=== PATIENT | male | born 1945 | race Caucasian/White ===

== ENCOUNTER 2018-03-13 12:42 | Outpatient (CLI) | payer MEDICARE | END 2018-03-13 12:43 | disposition home or self-care (01) | LOC: BICULT 12:42 | PROVIDERS: ATTEND Internal Medicine Nephrology | DX: Z01.818 Encounter for other preprocedural examination (principal); N18.5 Chronic kidney disease, stage 5 | CPT/HCPCS: 93970; G0365 ==

== ENCOUNTER 2018-05-02 11:41 | Outpatient (CLI) | payer MEDICARE | END 2018-05-02 11:42 | disposition home or self-care (01) | LOC: LABBT 11:41 | PROVIDERS: ATTEND Specialist | DX: Z01.810 Encounter for preprocedural cardiovascular examination (principal); N18.9 Chronic kidney disease, unspecified | CPT/HCPCS: 93005; 93010 ==

== ENCOUNTER 2018-05-08 05:46 | Day surgery (SDC) | payer MEDICARE ==
[2018-05-02 12:06] VITALS: BMI 37.2
--- NOTE | 2018-05-02 13:43 | HP ---
HISTORY OF PRESENT ILLNESS: Nahun Case is a 72-year-old male patient followed by Dr. Bird for chr onic kidney disease. He has progressive renal failure. Ultrasound vein mapping at [facility] eve[facility] the right cephalic vein is superior than left. Left seemed to taper his antecubital fossa. H e is right handed, more so than left, although uses both hands. He is retired from [employer]. He has a history of hypertension, but not diabetes. He believes lead poisoning has something to do with his kidney failure. Plan is for a right arm fistula under general anesthesia or regional per patient anesthesia choice. The patient did have a cardiac stress test 5 years ago, prior to a prostatectomy. He does not have a ny cardiac symptomatology. The patient is followed by Dr. Astorga in [place] and followed by Dr. Bird, Nephrology. ALLERGIES: None. TOBACCO: None. ALCOHOL: None. SOCIAL HISTORY: He is right handed, primarily is retired. [employer]. He lives in [place] outside [facility]. PAST SURGICAL HISTORY: Umbilical hernia repair 5 years ago with mesh. Vasectomy, eye surgery, traum atic prostatectomy for cancer, lumbar surgery for traumatic event. PAST MEDICAL HISTORY: Hypertension, gout, history of lead poisoning 12/1992 working at [employer]. REVIEW OF SYSTEMS: Noncontributory. PHYSICAL EXAMINATION: VITAL SIGNS: Weight 245 pounds, 5 foot 8 inches, 37 BMI, 146/60, 39, 97.9 degrees. HEENT: Unremarkable. LUNGS: Clear to auscultation. CARDIAC: Regular rate and rhythm without murmur or gallop. ABDOMEN: Soft, obese, nontender. Umbilical hernia repair intact. EXTREMITIES: Unremarkable. Palpable radial pulses bilaterally. He is obese. 04/01/2018: Sodium 139, potassium 5.6, creatinine 6, GFR 9. ASSESSMENT AND PLAN: 1. End-stage renal disease. We will plan placement of right arm fistula. Risk of infection, bleedi ng, reoperation, revision explained. 2. Hypertension. 3. Obesity. 4. History of lead poisoning. 5. History of lumbar surgery.
[2018-05-08] MEDS ORDERED: CEFAZOLIN 2 GM/50 ML BAG ONE (06:14)
[2018-05-08] MEDS ORDERED: Midazolam HCl 2 mg/2 ml Vial ONE (07:10)
[2018-05-08] MEDS ORDERED: Fentanyl 100 MCG/2 ML VIAL ONE (07:10)
[2018-05-08] MEDS ORDERED: Protamine Sulfate 50 MG/5 ML VIAL ONE (07:19)
[2018-05-08] MEDS ORDERED: Ioversol 68 % 50 ML VIAL ONE (07:19)
[2018-05-08] MEDS ORDERED: Lidocaine 2% PF 5 ML VIAL ONE (07:19)
[2018-05-08] MEDS ORDERED: Bupivacaine HCl 0.5%/Epinephrine 1:200,000/PF 30 ml Vial ONE ×2 (07:19→17:17)
[2018-05-08] MEDS ORDERED: Heparin 5,000 UNITS/ML VIAL ONE (07:19)
[2018-05-08] MEDS ORDERED: Atropine Sulfate 1 mg/1 ml Vial ONE (07:33)
[2018-05-08] MEDS ORDERED: Ondansetron PF 4 MG/2 ML Vial ONE ×2 (07:33→17:29)
[2018-05-08] MEDS ORDERED: Propofol 500 MG/50 ML VIAL ONE ×2 (07:56→08:57)
[2018-05-08 08:29] LABS: Albumin 3.4 g/dL (3.4-4.8)
[2018-05-08 08:31] LABS: Calcium 10.5 mg/dL (7.8-10.44); Chloride 109 mmol/L (98-107); Potassium 5.4 mmol/L (3.5-5.1); Sodium 136 mmol/L (136-145)
[2018-05-08 08:32] LABS: Globulin 3.4 g/dL (2.4-3.5); Glucose 131 mg/dL (83-110); Protein, Total 6.8 g/dL (5.8-8.1)
[2018-05-08 08:33] LABS: Anion Gap 11 mmol/L (10-20); Carbon Dioxide 21 mmol/L (23-31)
[2018-05-08 08:34] LABS: Bilirubin, Total 0.2 mg/dL (0.2-1.2)
[2018-05-08 08:35] LABS: Alkaline Phosphatase 68 U/L (40-150); Calc. Creatinine Clearance 17 mL/min (70-130); Estimated GFR-MDRD 9
[2018-05-08 08:36] LABS: BUN (Urea Nitrogen) 60 mg/dL (8.4-25.7)
[2018-05-08 08:37] LABS: AST (SGOT) 18 U/L (5-34)
[2018-05-08 08:38] LABS: ALT (SGPT) 15 U/L (8-55)
--- NOTE | 2018-05-08 11:07 | OP ---
DATE OF PROCEDURE: 05/08/2018 PREOPERATIVE DIAGNOSIS: Chronic kidney disease, not yet started dialysis. POSTOPERATIVE DIAGNOSIS: Chronic kidney disease, not yet started dialysis. PROCEDURE: Right arm primary AV fistula, inflow proximal radial artery, outflow antecubital vein to cephalic vein, primary outflow with some communication to basilic vein is smaller caliber anatomicall y preferentially outflow cephalic vein calibrated to a 4 mm coronary dilator. SURGEON: Cristiano Fuchs M.D. ANESTHESIA: Regional TIVA. DESCRIPTION OF PROCEDURE: The patient taken to the operating room where under regional anesthesia an d intravenous sedation, right upper extremity was prepped with ChloraPrep, draped in routine fashion. Small incision was made at the wrist and the cephalic vein at the wrist was too small and this inci juliann closed by approximately subcutaneous tissues using 3-0 Monocryl, skin with subdermal 4-0 Monocry l and DermaGlue applied. Incision made in the proximal volar forearm longitudinally below the antecubital fossa, carried don t o skin and subcutaneous tissue. Antecubital vein dissected free, was of good caliber, outflow cephal ic vein primarily, cephalic veins appear to be of excellent caliber. The antecubital vein seemed to consist of two veins. There was a small communicating branch to a larger basilic vein. Perforating branch antecubital vein dissected free and branches divided between clips and 4-0 silk ties and it wa s spatulated but anatomically the antecubital vein of larger caliber more laterally seemed to be of b selene suited. Stump was doubly clipped, divided. Vein divided and spatulated and interrogated with coronary dilators, passing coronary dilators from a 2 mm to a 4 mm coronary dilator out the cephalic vein outflow without obstruction. The perforating branch was ligated with 4-0 silk tie. The patient was given 6000 units of heparin intravenously. After adequate circulation time, the proximal radial artery was clamped proximally and distally and longitudinal arteriotomy made sharply and elongated w christa Arita scissors and end vein to side proximal radial anastomosis created with continuous suture of 6-0 Prolene. Once this was completed, vascular control was released and there was excellent outflow interrogated by Doppler with good signal. The patient given 25 mg of protamine intravenously by Caitlyn arora. Good hemostasis noted. Subcutaneous tissues approximated with 3-0 Monocryl, skin with subd ermal 4-0 Monocryl and DermaGlue applied. The patient tolerated the procedure well.
[2018-05-08] MEDS ORDERED: Heparin 10,000 UNITS/ 10 ML VIAL ONE (17:29)
[2018-05-08] MEDS ORDERED: PHENYLEPHRINE-NS 100 MCG/ML 10 ML SYRINGE ONE (17:29)
[2018-05-08] MEDS ORDERED: ePHEDrine/0.9% NaCl/PF SYRINGE 50 mg/10 ml ONE (17:29)
[2018-05-08] MEDS ORDERED: PROPOFOL 200 MG/20 ML VIAL ONE (17:29)
== END 2018-05-08 10:45 | disposition home or self-care (01) ==
LOC: SDC 05:46
PROVIDERS: ATTEND Specialist
PROC: 031B0ZF Bypass Right Radial Artery to Lower Arm Vein, Open Approach (ICD-10-PCS; principal; 2018-05-08)
DX: I12.0 Hypertensive chronic kidney disease with stage 5 chronic kidney disease or end stage renal disease (principal); N18.6 End stage renal disease; M31.31 Wegener's granulomatosis with renal involvement; M10.9 Gout, unspecified; E78.5 Hyperlipidemia, unspecified; E66.9 Obesity, unspecified; Z68.37 Body mass index [BMI] 37.0-37.9, adult; Z79.899 Other long term (current) drug therapy; Z99.2 Dependence on renal dialysis
CPT/HCPCS: 36415; 80053; J0131; J0461; J0670; J1644; J2001; J2250; J2405; J2704; J2720; J3010; Q9967

== ENCOUNTER 2019-08-11 12:54 | Inpatient (IN) | payer MEDICARE ==
--- NOTE | 2019-08-11 13:28 | RAD ---
CHEST 1 VIEW: Date: 08/11/2019 INDICATION: History of increasing dyspnea and myalgias. COMPARISON: None. FINDINGS: There is mild cardiomegaly. There is subsegmental volume loss involving the right mid lung. No consol idation, pleural effusion, or pneumothorax is evident. No acute osseous abnormality is evident. IMPRESSION: Mild cardiomegaly without evidence of cardiac decompensation. POS: CET
[2019-08-11 13:35] LABS: #Eosinphils 0.1 thou/uL (0.0-0.7); #Lymphocytes 1.3 thou/uL (1.20-3.40); #Monocytes 0.6 thou/uL (0.11-0.59); #Neutrophils 4.6 thou/uL (1.40-6.50); %Basophils 0.3 % (0.0-1.0); %Eosinophils 1.5 % (0.0-10.0); %Lymphocytes 19.6 % (21.0-51.0); %Monocytes 8.5 % (0.0-10.0); %Neutrophils 70.2 % (42.0-75.0); Hemoglobin 9.2 g/dL (14.0-18.0); Mean Corpuscular HGB CONC 32.2 g/dL (32.0-36.0); Mean Corpuscular Hemoglobin 30.5 pg (27.0-31.0); Mean Corpuscular Volume 94.7 fL (78.0-98.0); Mean Platelet Volume 9.7 fL (7.4-10.4); Platelet Count 102 thou/uL (130-400); RBC Distribution Width 13.6 % (11.5-14.5); Red Blood Cell (RBC) Count 3.01 mill/uL (4.70-6.10); White Blood Cell (WBC) Count 6.5 thou/uL (4.8-10.8)
[2019-08-11 14:03] LABS: ALT (SGPT) 24 U/L (8-55); AST (SGOT) 65 U/L (5-34); Albumin 3.5 g/dL (3.4-4.8); Alkaline Phosphatase 82 U/L (40-110); Anion Gap 13 mmol/L (10-20); BUN (Urea Nitrogen) 66 mg/dL (8.4-25.7); Bilirubin, Total 0.6 mg/dL (0.2-1.2); Calc. Creatinine Clearance 0 mL/min (70-130); Calcium 10.5 mg/dL (7.8-10.44); Carbon Dioxide 19 mmol/L (23-31); Chloride 111 mmol/L (98-107); Estimated GFR-MDRD 8; Globulin 2.7 g/dL (2.4-3.5); Glucose 91 mg/dL (83-110); Potassium 5.4 mmol/L (3.5-5.1); Protein, Total 6.2 g/dL (5.8-8.1); Sodium 138 mmol/L (136-145)
[2019-08-11] MEDS ORDERED: Aspirin Chewable 81 MG TAB ONE (14:12)
[2019-08-11] MEDS ORDERED: Ondansetron PF 4 MG/2 ML Vial ONE (14:12)
[2019-08-11 14:25] LABS: CKMB 88.9 ng/mL (0-6.6)
[2019-08-11] MEDS ORDERED: Enoxaparin Sodium 30 MG/0.3 ML SYRINGE ONE (15:12)
[2019-08-11] MEDS ORDERED: Enoxaparin Sodium 80 MG/0.8 ML SYRINGE ONE (15:12)
[2019-08-11] MEDS ORDERED: Acetaminophen 325 MG TAB PO PRN (15:59)
[2019-08-11] MEDS ORDERED: Bisacodyl 5 MG TAB PO PRN (15:59)
[2019-08-11] MEDS ORDERED: Loperamide HCl 2 MG CAP PO PRN (15:59)
[2019-08-11] MEDS ORDERED: HYDROcodone/Acetaminophen 5/325 mg Tablet PO PRN (15:59)
[2019-08-11] MEDS ORDERED: Calcium Carbonate 500 MG ChewTAB PO PRN (15:59)
[2019-08-11] MEDS ORDERED: Ondansetron ODT 4 MG TAB PO PRN (15:59)
[2019-08-11] MEDS ORDERED: Ondansetron PF 4 MG/2 ML Vial IVP PRN (15:59)
[2019-08-11] MEDS ORDERED: diphenhydrAMINE 25 MG CAP PO PRN (16:03)
[2019-08-11] MEDS ORDERED: hydrALAZINE 20 MG/ML VIAL SLOW IVP PRN (16:03)
[2019-08-11] MEDS ORDERED: Benzonatate 100 MG CAP PO PRN (16:03)
[2019-08-11] MEDS ORDERED: Docusate 100 MG CAP PO PRN (16:03)
[2019-08-11] MEDS ORDERED: Melatonin 3 MG TAB PO PRN (16:03)
[2019-08-11] MEDS ORDERED: Nitroglycerin 0.4 MG TAB (25 Tab Bottle) SL PRN (16:04)
--- NOTE | 2019-08-11 16:09 | PDOC.HHP ---
Hospitalist HPI - History of Present Illness Chest pain History of Present Illness: Very pleasant 73 year old gentleman with PMHx of CKD stage 4 secondary to lead poisoning, HTN, and BPH present with chest pain. Patient with midsternal chest pain without radiation. No associated nausea, vomiting, or diaphoresis. Patient found to have Troponin of 44 on admission, diagnosed with NSTEMI. 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 He has right arm fistula in place and follows up with Dr Bird, Nephrology, regularly. Cardiology and Nephrology consulted for further recommendations. Hospitalist ROS - Review of Systems All other systems reviewed; all pertinent +/- noted in HPI/Subj Hospitalist History - Past Medical History Source: patient, family, old records Cardiac: reports: HTN Renal/: reports: Chronic renal insuff, Acute renal failure - Past Surgical History Past Surgical History: reports: Other (Fistula) - Family History Family History: reports: hypertension - Social History Smoking Status: Never smoker Alcohol: reports: None Drugs: reports: none Living Situation: With Family Domestic Violence: Negative Activity level: independent ambulation - Exam General Appearance: NAD, awake alert Eye: PERRL, anicteric sclera ENT: normocephalic atraumatic, moist mucosa Neck: supple, symmetric, no lymphadenopathy Heart: no murmur, no gallops, no rubs, normal peripheral pulses Respiratory: CTAB, no wheezes, no rales, no ronchi, normal chest expansion Gastrointestinal: soft, non-tender, no guarding, no rigidity Extremities: no edema Extremities - other findings: Right arm fistula with audible thrill Skin: no lesions, no rashes Neurological: cranial nerve grossly intact, no weakness, no new deficit Musculoskeletal: normal strength, no muscle wasting Psychiatric: normal affect, normal behavior, A&O x 3 Hospitalist Results - Labs Result Diagrams: 08/11/19 13:22 08/11/19 13:22 Lab results: WBC 6.5 thou/uL (4.8-10.8) 08/11/19 13:22 Hgb 9.2 g/dL (14.0-18.0) L 08/11/19 13:22 Hct 28.5 % (42.0-52.0) L 08/11/19 13:22 MCV 94.7 fL (78.0-98.0) 08/11/19 13:22 Plt Count 102 thou/uL (130-400) L 08/11/19 13:22 Neutrophils % 70.2 % (42.0-75.0) 08/11/19 13:22 Sodium 138 mmol/L (136-145) 08/11/19 13:22 Potassium 5.4 mmol/L (3.5-5.1) H 08/11/19 13:22 Chloride 111 mmol/L (98-107) H 08/11/19 13:22 Carbon Dioxide 19 mmol/L (23-31) L 08/11/19 13:22 BUN 66 mg/dL (8.4-25.7) H 08/11/19 13:22 Creatinine 6.76 mg/dL (0.7-1.3) H 08/11/19 13:22 Glucose 91 mg/dL (83-110) 08/11/19 13:22 Calcium 10.5 mg/dL (7.8-10.44) H 08/11/19 13:22 Total Bilirubin 0.6 mg/dL (0.2-1.2) 08/11/19 13:22 AST 65 U/L (5-34) H 08/11/19 13:22 ALT 24 U/L (8-55) 08/11/19 13:22 Alkaline Phosphatase 82 U/L (40-110) 08/11/19 13:22 CK-MB (CK-2) 88.9 ng/mL (0-6.6) H* 08/11/19 13:22 Troponin I 44.819 ng/mL (< 0.028) H* 08/11/19 13:22 B-Natriuretic Peptide 3144.2 pg/mL (0-100) H 08/11/19 13:22 Serum Total Protein 6.2 g/dL (5.8-8.1) 08/11/19 13:22 Albumin 3.5 g/dL (3.4-4.8) 08/11/19 13:22 - Radiology Interpretation Chest x-ray Status: image reviewed by ak Hospitalist H&P A/P - Problem (1) NSTEMI (non-ST elevated myocardial infarction) Code(s): I21.4 - NON-ST ELEVATION (NSTEMI) MYOCARDIAL INFARCTION Status: Acute (2) Chest pain Code(s): R07.9 - CHEST PAIN, UNSPECIFIED Status: Acute (3) SUNSHINE (acute kidney injury) Code(s): N17.9 - ACUTE KIDNEY FAILURE, UNSPECIFIED Status: Acute (4) CKD (chronic kidney disease) stage 4, GFR 15-29 ml/min Code(s): N18.4 - CHRONIC KIDNEY DISEASE, STAGE 4 (SEVERE) Status: Acute (5) HTN (hypertension) Code(s): I10 - ESSENTIAL (PRIMARY) HYPERTENSION Status: Acute (6) BPH (benign prostatic hyperplasia) Code(s): N40.0 - BENIGN PROSTATIC HYPERPLASIA WITHOUT LOWER URINRY TRACT SYMP Status: Acute - Plan Plan: Plan: Admit to [facility] Cardiology consultation, recommendation appreciated Nephrology consultation, recommendation appreciated NSTEMI diagnosed on admission May require cardiac cath for definitive diagnosis and treatment. Elevated risk of renal failure with contrast Heparin drip per protocol Morphine, oxygen, nitrates, ASA Echo BP control Blood sugar control Continue home medications as able GI PPX DVT PPX
[2019-08-11] MEDS ORDERED: Morphine 2 MG/ML SYRINGE SLOW IVP PRN (16:25)
[2019-08-11 16:28] LABS: Hemoglobin 9.3 g/dL (14.0-18.0); Platelet Count 92 thou/uL (130-400)
[2019-08-11 17:35] LABS: Critical Call Chem Troponin I RESULT DECREASING; Troponin I 28.405 ng/mL (< 0.028)
[2019-08-11] MEDS ORDERED: Famotidine 20 MG TAB PO SCH (21:00)
[2019-08-11 21:11] LABS: Troponin I 33.322 ng/mL (< 0.028)
[2019-08-11 21:16] VITALS: BMI 35.5
[2019-08-11] MEDS: Heparin 10,000 UNITS/ 10 ML VIAL SLOW IVP SCH (22:01)
[2019-08-11] MEDS: Heparin 25,000 units/D5W 500 ML IVPB SCH (22:02)
[2019-08-11] MEDS: Terazosin HCl 1 MG CAP PO SCH (22:06)
[2019-08-11] MEDS: Sodium Bicarbonate Tab 325 MG TAB PO SCH (22:06)
[2019-08-12 03:52] LABS: #Lymphocytes 1.1 thou/uL (1.20-3.40); #Monocytes 0.6 thou/uL (0.11-0.59); #Neutrophils 6.2 thou/uL (1.40-6.50); %Basophils 0.2 % (0.0-1.0); %Eosinophils 0.2 % (0.0-10.0); %Lymphocytes 13.6 % (21.0-51.0); %Monocytes 7.4 % (0.0-10.0); %Neutrophils 78.6 % (42.0-75.0); Hemoglobin 8.8 g/dL (14.0-18.0); Mean Corpuscular HGB CONC 33.1 g/dL (32.0-36.0); Mean Corpuscular Hemoglobin 31.2 pg (27.0-31.0); Mean Corpuscular Volume 94.1 fL (78.0-98.0); Mean Platelet Volume 9.6 fL (7.4-10.4); Platelet Count 93 thou/uL (130-400); RBC Distribution Width 13.5 % (11.5-14.5); Red Blood Cell (RBC) Count 2.84 mill/uL (4.70-6.10); White Blood Cell (WBC) Count 7.9 thou/uL (4.8-10.8)
[2019-08-12 04:01] LABS: Anion Gap 16 mmol/L (10-20); BUN (Urea Nitrogen) 70 mg/dL (8.4-25.7); Calc. Creatinine Clearance 14 mL/min (70-130); Calcium 10.4 mg/dL (7.8-10.44); Carbon Dioxide 15 mmol/L (23-31); Chloride 112 mmol/L (98-107); Estimated GFR-MDRD 8; Glucose 92 mg/dL (83-110); Potassium 5.9 mmol/L (3.5-5.1); Sodium 137 mmol/L (136-145)
--- NOTE | 2019-08-12 04:55 | PDOC.EVN ---
Event Note - Event Note Event Note: RN called - K 5.9. Bicarb down to 15 from 9. On Heparin drip. Will start bicarb drip Recheck labs @900
[2019-08-12] MEDS ORDERED: Sodium Bicarbonate 150 MEQ in Dextrose 5% in Water 1,000 ML IV SCH (05:00)
[2019-08-12] MEDS ORDERED: Sodium Bicarb 50 MEQ/50 ML Abboject 8.4% SYRINGE IVP SCH (05:00)
[2019-08-12] MEDS ORDERED: Sodium Bicarb 50 MEQ/50 ML VIAL ONE (05:15)
[2019-08-12] MEDS ORDERED: Tuberculin PPD 0.1 ML VIAL I-DERMAL SCH (08:15)
[2019-08-12 08:19] LABS: Troponin I 28.848 ng/mL (< 0.028)
[2019-08-12 08:53] LABS: Lactic Acid 1.1 mmol/L (0.5-2.2)
[2019-08-12 08:56] LABS: Anion Gap 15 mmol/L (10-20); BUN (Urea Nitrogen) 69 mg/dL (8.4-25.7); Calc. Creatinine Clearance 15 mL/min (70-130); Calcium 10.3 mg/dL (7.8-10.44); Carbon Dioxide 18 mmol/L (23-31); Chloride 110 mmol/L (98-107); Estimated GFR-MDRD 8; Glucose 105 mg/dL (83-110); Potassium 5.4 mmol/L (3.5-5.1); Sodium 138 mmol/L (136-145)
[2019-08-12] MEDS ORDERED: Prevnar 13-Val Conj/PF 0.5 ML SYRINGE IM ONE (09:00)
[2019-08-12 09:17] LABS: HBSAB Concentration 1.18 mIU/mL; HBSAg Index 0.23 S/CO (0-0.99); Hep B Core Total Ab Non-Reactive (NonReactive); Hep B Core Total Index 0.07 S/CO (0-0.79); Hep B Surf AB Non-Reactive (NonReactive); Hep B Surf Ag Non-Reactive S/CO (NonReactive); Hep C IgG Ab Non-Reactive (NonReactive); Hep C Index 0.18 S/CO (0-0.79)
[2019-08-12] MEDS ORDERED: EPOETIN ALFA-EPBX (ESRD) 4,000 UNIT/ML VIAL SC SCH (09:30)
[2019-08-12] MEDS: Sodium Bicarbonate Tab 325 MG TAB PO SCH ×2 (09:53→20:25)
[2019-08-12] MEDS: Calcitriol 0.25 MCG CAP PO SCH (09:53)
[2019-08-12] MEDS: Atenolol 25 MG TAB PO SCH (09:53)
[2019-08-12] MEDS: Allopurinol 300 MG TAB PO SCH (09:53)
--- NOTE | 2019-08-12 10:17 | CON ---
DATE OF CONSULTATION: HISTORY OF PRESENT ILLNESS: Mr. 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 He is being ruled out for AL. We are now consulted for his chronic renal failure. I feel that he needs to be initiated on dialysis due to the progressive azotemia. REVIEW OF SYSTEMS: Positive for intermittent chest pain and arm pain. Mild shortness of breath. No syncopal episode. Appetite and energy level are fair. No gross hematuria. No dysuria. No frequency. No productive cough. No fever or chills. No hematochezia. No melena. No hematemesis. No abdominal pain. HOME MEDICATIONS: Included: 1. Atenolol 25 mg once a day. 2. Calcitriol 0.5 mcg every other day. 3. Allopurinol 150 mg tablet once a day. 4. Sodium bicarbonate 650 mg one tablet b.i.d. 5. Terazosin 2 mg tablet q.h.s. 6. Iron 65 mg tablet once a day. PAST MEDICAL HISTORY: Includes the following. 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 PAST SURGICAL HISTORY: Status post renal biopsy, status post prostate biopsy, status post prostatectomy, status post vasectomy, status post back surgery, status post left eye surgery. SOCIAL HISTORY: The patient is . Lives in [place]. He has 2 children. He is medically disabled. 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 No history of smoking. No alcohol intake. No drug abuse. FAMILY HISTORY: No family history of ESRD. ALLERGIES: NONE. TRAUMA: None. IMMUNIZATIONS: Up-to-date. HOSPITALIZATIONS: Please see past medical history. PHYSICAL EXAMINATION: VITAL SIGNS: Blood pressure 130/71, heart rate 63, respiratory rate 20, pulse ox 100%. GENERAL: Noted to be awake, alert, comfortable, not in distress. SKIN: Adequate turgor. HEENT: He has slightly pale conjunctivae. Anicteric sclerae. NECK: No neck mass. No carotid bruits. No JVD. CHEST: No deformities. LUNGS: Clear breath sounds. No wheezing. No crackles. HEART: Normal sinus rhythm. No murmurs, gallops, or rubs. ABDOMEN: Globular, soft, nontender. No masses. EXTREMITIES: No edema. No deformities. He has a right AV fistula. Positive for bruit, but I do not think this is much old. LABORATORY DATA: Laboratories of August 12, 2019; white count 7.9, hemoglobin 8.8. Sodium 138, potassium 5.4, chloride 110, carbon dioxide 18, BUN 69, creatinine 6.78, glucose 105, calcium 10.3. Troponin I of 28.8. ASSESSMENT AND PLAN: 1. 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 If not functional, refer to Surgery for placement of a tunneled dialysis catheter. 2. Chest pain/elevated troponin I-currently on heparin drip. Cardiology consult has been done. 3. Anemia. Start Epogen 7500 units subcu every week. 4. Agree with current management. Job ID: [id number]
[2019-08-12] MEDS ORDERED: CEFAZOLIN 2 GM in Premix Bag 1 BAG IVPB SCH (10:45)
[2019-08-12] MEDS ORDERED: Lidocaine 1% w/Epinephrine 1:100K 20 ML VIAL ONE (11:42)
[2019-08-12] MEDS ORDERED: Heparin 10,000 UNITS/ 10 ML VIAL ONE (11:57)
--- NOTE | 2019-08-12 12:47 | CON ---
DATE OF CONSULTATION: 08/12/2019 REASON FOR CONSULTATION: Recent myocardial infarction and end-stage renal disease. HISTORY OF PRESENT ILLNESS: Mr. Case is a very pleasant 73-year-old gentleman. The patient has been having chest pain progressively worse for the last few days. He said, yesterday it was very intense. He feels much better today. He came to the hospital, had a troponin level of 40. He has been admitted for further evaluation. The patient has a history of renal failure, near end-stage for many years. He had an access graft placed a couple of years ago, but apparently it is not currently usable. He said he has been more, more short of breath with any type of exercise and having increasing amounts of chest pain resulting in the hospitalization yesterday. The patient currently is pain-free. MEDICATIONS: Prior to admission, the patient was taking; 1. Terazosin. 2. Sodium bicarbonate. 3. Atenolol. 4. Allopurinol. 5. Iron. REVIEW OF SYSTEMS: CONSTITUTIONAL: No significant weight gain or loss. VISION: No changes. HEARING: No changes. PULMONARY: No cough or wheezing. GASTROINTESTINAL: No nausea, vomiting, or diarrhea. SKIN: No rashes. ALLERGIES: NONE KNOWN. SOCIAL HISTORY: No tobacco or alcohol abuse. He has a family member in the room, who is very supportive of him. No previous cardiac history. PHYSICAL EXAMINATION: GENERAL: This is a pleasant 73-year-old gentleman, resting comfortably, currently in no distress. VITAL SIGNS: Blood pressure 125/61 and pulse is 60, it is regular. HEENT: Eyes, sclerae nonicteric. Mouth, mucous membranes moist. NECK: Supple. No lymphadenopathy. LUNGS: Clear. No wheezing, rales, or rhonchi. CARDIAC: Normal S1. Normal S2. I do not appreciate murmur, rub, or gallop. ABDOMEN: Soft and nontender. EXTREMITIES: Warm and dry. No clubbing, cyanosis, or edema. He has femoral pulses bilaterally, but the pedal pulses I do not palpate. PERTINENT LABORATORY DATA: The patient had a troponin of 44 yesterday, it is 28 this morning. His creatinine is 6.78. EKG, sinus rhythm with a right bundle-branch block with left axis deviation (bifascicular block). Echocardiogram, ejection fraction 35% to 40%. The inferior posterior wall are akinetic. There was what appears to be severe aortic stenosis with a valve area of 1, peak gradient 33, mean gradient 20, it is compatible with low-flow, low-gradient aortic stenosis. There is also [id number] mitral regurgitation, moderate tricuspid insufficiency with elevated pulmonary artery pressure. ASSESSMENT: 1. Recent myocardial infarction. 2. Bifascicular block on EKG. 3. End-stage renal disease. 4. Aortic stenosis. 5. Mitral regurgitation. 6. 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 The patient did receive Lovenox yesterday. PLAN: 1. They will try to make arrangements for him to be dialyzed. 2. He is on intravenous heparin currently. 3. Consideration for cardiac catheterization tomorrow. Discussed risks of stroke, heart attack, iodine allergy, loss of blood supply to leg or kidney, stent thrombosis, and stent restenosis. The patient does have multiple severe problems. Prognosis is guarded. If he has multivessel disease, he may need bypass surgery with aortic valve replacement, but still have mitral regurgitation as well. Long-term prognosis guarded. Further recommendations based on the hospital course. Tentatively planning on catheterization tomorrow, but will need to have dialysis access as he almost is completely anuric now and after the catheterization would be expected to have loss of weight or renal function he has currently. Job ID: [id number]
--- NOTE | 2019-08-12 13:22 | ULT ---
ULTRASOUND VENOUS VASCULARM APPING FOR DIALYSIS ACCESS OF BOTH UPPER EXTREMITIES. HISTORY: ESRD. FINDINGS: RIGHT: CEPHALIC: Proximal humerus 6.4 mm Mid humerus 7.7 mm Distal 8.2 mm Elbow 9.4 mm Proximal forearm 2.5 mm Mid 3.8 mm Distal 2.0 mm BASILIC: Proximal humerus 1.0 mm Mid humerus 6.7 mm Distal 6.9 mm Elbow 7.3 mm Proximal forearm 2.0 mm Mid 1.9 mm Distal 2.6 mm Brachial Artery: 5.9 mm Radial Artery: 3.1 mm Ulnar Artery: 2.8 mm (The technologist notes a patent fistula with a positive thrill) LEFT: CEPHALIC: Proximal humerus 5.6 mm Mid humerus 5.8 mm Distal 5.8 mm Elbow 6.6 mm Proximal forearm 3.7 mm Mid 4.2 mm Distal 1.4 mm BASILIC: Proximal humerus 4.1 mm Mid humerus 3.2 mm Distal 4.9 mm Elbow 5.4 mm Proximal forearm 2.0 mm Mid 1.9 mm Distal 1.6 mm Brachial Artery: 4.2 mm Radial Artery: 2.2 mm Ulnar Artery: 1.2 mm POS: TPC
--- NOTE | 2019-08-12 16:41 | CON ---
DATE OF CONSULTATION: HISTORY OF PRESENT ILLNESS: Nahun Case is a 73-year-old male patient, who I establish a right arm primary fistula on 05/08/2018. Proximal radial artery inflow-outflow cephalic vein with communication to the basilic vein. I have also saw him in July of this year and released him to use his fistula whenever. He presents now with a non-STEMI KS, been seen by Dr. Saldana and heparin drip started. I have been asked by Dr. Bird to see him regarding his established dialysis access as they do not think that they can access his right arm fistula. On exam, it seemed that he has a good thrill and bruit, but outflow may be primary basilic vein. He will need a fistulogram. In the interim, we will place a temporary hemodialysis catheter right groin to initiate dialysis today in preparation for a cardiac catheterization tomorrow. On or Sunday, we will plan placement of a cuffed tunneled dialysis catheter. We will obtain a fistulogram later in the week to assess his fistula to see why it is not maturing. ALLERGIES: NONE. SOCIAL HISTORY: Tobacco, none. Alcohol, none. The patient is retired from [employer]. He lives in [place] outside of [place]. MEDICATIONS: At home: 1. Iron. 2. Sodium bicarbonate. 3. Calcitriol. 4. Atenolol. 5. Allopurinol. 6. Terazosin. In the hospital, he is on: 1. Heparin drip. 2. PPIs. PAST SURGICAL HISTORY: Umbilical hernia repair years ago with mesh, vasectomy, eye surgery, transurethral prostatectomy for cancer, lumbar surgery for a traumatic event, and right arm fistula in 2017 as noted above. PAST MEDICAL HISTORY: Hypertension, gout, history of lead poisoning in December 1992, now suffered a myocardial infarction, seen by Dr. Saldana, who is planning cardiac catheterization tomorrow. PHYSICAL EXAMINATION: VITAL SIGNS: 233 pounds, 5 feet 8 inches, and 35 BMI. 111/72, 90, and 22. HEAD, EARS, EYES, NOSE, AND THROAT: Unremarkable. LUNGS: Clear to auscultation. No wheezing. CARDIAC: Regular rate and rhythm. ABDOMEN: Soft, obese, and nontender. EXTREMITIES: Unremarkable. Right arm fistula, proximal radial artery inflow. I cannot feel a good cephalic vein outflow. He has seen his primary outflow through his basilic vein. ASSESSMENT AND PLAN: In need of acute dialysis access in preparation for cardiac catheterization tomorrow and treat his fluid overload as he presented with dyspnea. We will plan placement of a temporary dialysis catheter as he is on heparin drip. He also has poor IV access. Once his heart is addressed with catheterization, he will need a fistulogram and a cuffed tunneled dialysis catheter. We will order that later this week. Job ID: [id number]
[2019-08-12] MEDS: Terazosin HCl 1 MG CAP PO SCH (20:25)
[2019-08-12] MEDS: Famotidine 20 MG TAB PO SCH (20:25)
--- NOTE | 2019-08-12 23:02 | PDOC.HOSPP ---
- Subjective Encounter Date: 08/12/19 Encounter Time: 08:30 Subjective: no overnight events. This morning, feels much better, chest pain resolved. HD stable, breathing and satting well on RA, and has no complaints. - Objective Vital Signs & Weight: Vital Signs (12 hours) Temp Pulse Ox 08/12/19 20:00 97 08/12/19 19:26 98.5 F Weight Weight 233 lb 9 oz Most Recent Monitor Data Heart Rate from ECG 63 NIBP 116/66 NIBP BP-Mean 82 Respiration from ECG 18 SpO2 95 I&O: 08/11/19 08/12/19 08/13/19 06:59 06:59 06:59 Intake Total 425 Output Total 250 Balance 175 Result Diagrams: 08/12/19 03:20 08/12/19 08:16 Hospitalist ROS - Review of Systems Constitutional: denies: fever, chills, sweats, weakness, malaise, other Respiratory: denies: cough, dry, shortness of breath, hemoptysis, SOB with excertion, pleuritic pain, sputum, wheezing, other Cardiovascular: denies: chest pain, palpitations, orthopnea, paroxysmal noc. dyspnea, edema, light headedness, other Gastrointestinal: denies: nausea, vomiting, abdominal pain, diarrhea, constipation, melena, hematochezia, other Genitourinary: denies: dysuria, frequency, incontinence, hematuria, retention, other Neurological: denies: weakness - Medication Medications: Active Medications Generic Name Dose Route Start Last Admin Trade Name Freq PRN Reason Stop Dose Admin Allopurinol 150 mg 08/12/19 09:00 08/12/19 09:53 Zyloprim PO 150 mg QAM OLENA Administration Atenolol 25 mg 08/12/19 09:00 08/12/19 09:53 Tenormin PO 25 mg QAM OLENA Administration Calcitriol 0.5 mcg 08/12/19 09:00 08/12/19 09:53 Rocaltrol PO Not Given DAILY OLENA Epoetin Danielito-epbx 7,500 unit 08/12/19 09:30 08/12/19 10:59 Retacrit SC 7,500 unit Q7D OLENA Administration Famotidine 20 mg 08/12/19 21:00 08/12/19 20:25 Pepcid PO 20 mg 2100 OLENA Administration Heparin Sodium (Porcine) 0 units 08/11/19 16:15 08/11/19 22:01 Heparin 1,000 Units/Ml (10 Ml) SLOW IVP 4,000 unit ASDIR OLENA Administration Protocol Heparin Sodium/Dextrose 500 mls @ 0 mls/hr 08/11/19 16:15 08/11/19 22:02 Heparin 25,000 Units/D5w 500 Ml IVPB 500 mls INF OLENA Administration Protocol Per Protocol Sodium Bicarbonate 650 mg 08/11/19 21:00 08/12/19 20:25 Bicarbonate, Sodium PO 650 mg BID OLENA Administration Terazosin HCl 2 mg 08/11/19 21:00 08/12/19 20:25 Hytrin PO 2 mg HS OLENA Administration - Exam General Appearance: NAD, awake alert Neck: no JVD Heart: RRR, no murmur, no gallops, no rubs, normal peripheral pulses Respiratory: CTAB, no wheezes, no rales, no ronchi, normal chest expansion, no tachypnea, normal percussion Gastrointestinal: soft, non-tender, non-distended, normal bowel sounds, no palpable masses, no hepatomegaly, no splenomegaly, no bruit Extremities - other findings: R arm fistula with palpable thrill Neurological: cranial nerve grossly intact, normal sensation to touch, no weakness, no focal deficits, no new deficit Psychiatric: normal affect, normal behavior, A&O x 3 Hosp A/P - Plan #NSTEMI -symptoms have resolved -pending [facility] -meanwhile, will continue medical management #CKD 4 -requires dialysis in preparation for [facility] -per nephrology, can't use fistula; will establish temporary access Code status: Full
[2019-08-12] MEDS: Heparin 25,000 units/D5W 500 ML IVPB SCH (23:46)
--- NOTE | 2019-08-13 00:23 | CON ---
DATE OF CONSULTATION: 08/12/2019 HISTORY OF PRESENT ILLNESS: Mr. Case is a 73-year-old male. He formally worked at [employer] for many years. He feels that he somehow may have been poisoned by lead exposure, although he was told that there was no lead at the [employer] factory. It was felt that he might progress to complete renal failure a few years back. He had a vascular access placed. The vascular access did not mature. He is tentatively back with renal failure and scheduled for more vascular access procedures. He is also noted to have a positive troponin that was drawn after he presented with chest discomfort. PAST MEDICAL HISTORY: Remarkable for; 1. Chronic kidney disease, followed by Dr. Bird. 2. History of a herniorrhaphy. 3. History of vasectomy. 4. History of a TURP. 5. History of prostate cancer. 6. History of lumbar spine surgery after trauma. 7. History of hypertension. 8. History of gout. 9. History of obesity. FAMILY HISTORY: Negative for lung disease in early age. REVIEW OF SYSTEMS: Ten points otherwise negative. He actually says he feels fine now. PHYSICAL EXAMINATION: VITAL SIGNS: He is afebrile. Heart rate is 66, blood pressure 108/58, respiratory rate is in the high teens to low 20s. HEENT: Pupils are equal. Sclerae are anicteric. NECK: Supple. No lymphadenopathy. LUNGS: Clear. HEART: Regular rhythm. No S3. ABDOMEN: Soft and nontender. EXTREMITIES: Without clubbing, or cyanosis. Only trace edema. LABORATORY DATA: White count 7.9, hemoglobin 8.8, platelets 93, MCV is 94. BUN 69, creatinine 6.78. Potassium is 5.4. Troponin is 28. He is heparinized. IMPRESSION: 1. Probable coronary artery disease. 2. End-stage renal disease. 3. History of lead toxicity. 4. Obesity. He appears to be clinically stable at this time. We will be happy to follow the other physicians caring for him. TIME SPENT: This is a 50-minute consult, with greater than 50% of the time spent on the unit coordinating care. Job ID: [id number] MTDD
[2019-08-13 04:03] LABS: #Lymphocytes 1.3 thou/uL (1.20-3.40); #Monocytes 0.5 thou/uL (0.11-0.59); #Neutrophils 4.5 thou/uL (1.40-6.50); %Basophils 0.2 % (0.0-1.0); %Eosinophils 0.3 % (0.0-10.0); %Monocytes 8.2 % (0.0-10.0); %Neutrophils 71.2 % (42.0-75.0); Hemoglobin 7.9 g/dL (14.0-18.0); Mean Corpuscular HGB CONC 32.3 g/dL (32.0-36.0); Mean Corpuscular Hemoglobin 30.4 pg (27.0-31.0); Mean Corpuscular Volume 94.1 fL (78.0-98.0); Mean Platelet Volume 10.4 fL (7.4-10.4); Platelet Count 80 thou/uL (130-400); RBC Distribution Width 13.4 % (11.5-14.5); Red Blood Cell (RBC) Count 2.59 mill/uL (4.70-6.10); White Blood Cell (WBC) Count 6.4 thou/uL (4.8-10.8)
[2019-08-13 04:05] LABS: Anion Gap 13 mmol/L (10-20); BUN (Urea Nitrogen) 64 mg/dL (8.4-25.7); Calc. Creatinine Clearance 15 mL/min (70-130); Calcium 10.2 mg/dL (7.8-10.44); Carbon Dioxide 22 mmol/L (23-31); Chloride 107 mmol/L (98-107); Estimated GFR-MDRD 9; Glucose 101 mg/dL (83-110); Magnesium 1.7 mg/dL (1.6-2.6); Potassium 4.6 mmol/L (3.5-5.1); Sodium 137 mmol/L (136-145)
[2019-08-13] MEDS: Heparin 10,000 UNITS/ 10 ML VIAL SLOW IVP SCH ×2 (04:45→19:40)
[2019-08-13] MEDS ORDERED: Communication Order-Pharmacy FS SCH (09:00)
[2019-08-13] MEDS: Atenolol 25 MG TAB PO SCH (09:12)
[2019-08-13] MEDS: Calcitriol 0.25 MCG CAP PO SCH (09:12)
[2019-08-13] MEDS: Sodium Bicarbonate Tab 325 MG TAB PO SCH ×2 (09:12→20:59)
[2019-08-13] MEDS: Allopurinol 300 MG TAB PO SCH (09:15)
[2019-08-13] MEDS ORDERED: Heparin 10,000 UNITS/ 10 ML VIAL ONE (09:19)
--- NOTE | 2019-08-13 09:48 | OP ---
DATE OF PROCEDURE: 08/12/2019 PREOPERATIVE DIAGNOSES: Myocardial infarction, end-stage renal disease, in need of dialysis access, on heparin drip. Plan cardiac catheterization tomorrow if right arm fistula established. April 2018, not accessible, ordered a fistulogram. POSTOPERATIVE DIAGNOSES: Myocardial infarction, end-stage renal disease, in need of dialysis access, on heparin drip. Plan cardiac catheterization tomorrow if right arm fistula established. April 2018, not accessible, ordered a fistulogram. PROCEDURE PERFORMED: Right femoral vein Trialysis catheter. ANESTHESIA: 1% Xylocaine. DESCRIPTION OF PROCEDURE: With the patient at bedside, right groin was clipped of hair, prepared with ChloraPrep and draped in routine fashion. Local anesthetic was infiltrated in the skin and subcutaneous tissue. Seldinger technique used to place a Trialysis catheter, removed the J-wire, securing the catheter with 3-0 nylon. Sterile dressing was applied. Each port aspirated of blood, flushed with heparinized saline solution. The patient tolerated the procedure well. Job ID: [id number]
--- NOTE | 2019-08-13 10:05 | PRG ---
DATE OF SERVICE: 08/13/2019 SUBJECTIVE: Mr. Case is a 73-year-old white male with chronic renal failure and was admitted for chest pain. He was noted to have a significantly elevated troponin I. He is scheduled for cardiac cath tomorrow. We have also initiated dialysis due to his progressive azotemia. The patient voices no new complaints. No chest pain or shortness of breath. OBJECTIVE: VITAL SIGNS: Blood pressure 126/72, heart rate 54, respiratory rate 15, and pulse ox 100%. GENERAL: Awake, alert, comfortable, not in distress. SKIN: Adequate turgor. HEENT: He has slightly pale conjunctivae. Anicteric sclerae. No neck mass. No carotid bruits. No JVD. CHEST: No deformities. LUNGS: Clear breath sounds. HEART: Normal sinus rhythm. No murmur. No gallops. No rubs. ABDOMEN: Globular, soft, nontender. No masses. EXTREMITIES: No edema. No deformities. MEDICATIONS: Medications of August 13, 2019, reviewed. LABORATORY DATA: Laboratories of August 13, 2019, showed hemoglobin 7.9, white count 6.4. Sodium 137, potassium 4.6, chloride 107, carbon dioxide 22, BUN 64, creatinine 6.44, magnesium 1.7. ASSESSMENT AND PLAN: 1. Acute [place]-for cardiac catheterization tomorrow. Continue IV heparin. Cardiology is following. 2. 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 Hemodialysis has been initiated. He tolerated the first dialysis yesterday. My plan is to do a 2-hour hemodialysis with him today. Fluid removal as tolerated. 3. Anemia, currently started on weekly Epogen. Job ID: [id number]
--- NOTE | 2019-08-13 13:15 | PRG ---
DATE OF SERVICE: 08/13/2019 SUBJECTIVE: Mr. Case is scheduled for cardiac catheterization. OBJECTIVE: VITAL SIGNS: He is afebrile. Heart rate LUNGS: Clear. HEART: Regular rhythm. ABDOMEN: Soft. LABORATORY DATA: White count 6.4, hemoglobin 7.9, platelets 80,000, potassium 4.6, BUN 64, creatinine 6.44. IMPRESSION: 1. ? coronary artery disease cardiac catheterization. 2. End-stage renal disease, dialysis after his catheterization, eventual placement of catheter. 3. History of vascular access in upper extremity that never matured and never used. 4. Left ventricular dysfunction, ejection fraction of 35% to 40% as well as severe aortic stenosis. This will be evaluated at cath. 5. Obesity. 6. Sleep apnea suspect, moderate to severe mitral regurgitation. 7. We will continue to follow. . Job ID: [id number]
[2019-08-13] MEDS ORDERED: Aspirin 81 mg Enteric Coated Tablet PO SCH (13:45)
--- NOTE | 2019-08-13 13:57 | PRG ---
DATE OF SERVICE: 08/13/2019 SUBJECTIVE: Mr. Case is doing fine. No complaints. No chest pain. OBJECTIVE: VITAL SIGNS: Blood pressure 108/69 and pulse is in the 80s. LUNGS: Clear. CARDIAC: Normal S1 and normal S2. I do hear a 2/6 systolic murmur at the left upper sternal border. ABDOMEN: Soft and nontender. EXTREMITIES: There is no edema. ASSESSMENT: 1. Probable multivessel coronary artery disease. 2. End-stage renal disease. 3. Aortic stenosis. 4. Anemia. His hemoglobin is slowly drifting down to 24.3 this morning. PLAN: Tentatively plan on cardiac catheterization tomorrow. Discussed risk of stroke, heart attack, iodine allergy, loss of blood supply to leg or kidney, stent thrombosis stent, restenosis. He understands and wished to proceed. Job ID: [id number]
--- NOTE | 2019-08-13 14:37 | PDOC.HOSPP ---
- Subjective Encounter Date: 08/13/19 Encounter Time: 08:00 Subjective: no overnight events. This morning, lying in bed comfortably and has no complaints. Denies focal weakness, chest pressure or pain, palpitations, dyspnea , orthopnea, PND. - Objective Vital Signs & Weight: Vital Signs (12 hours) Temp Pulse Pulse Ox 08/13/19 11:15 97.8 F 08/13/19 09:12 54 L 08/13/19 08:00 99 08/13/19 07:19 97.7 F 08/13/19 03:36 98.1 F Weight Weight 233 lb 9 oz Most Recent Monitor Data Heart Rate from ECG 56 NIBP 108/69 NIBP BP-Mean 82 Respiration from ECG 23 SpO2 100 I&O: 08/12/19 08/13/19 08/14/19 06:59 06:59 06:59 Intake Total 425 550 Output Total 250 300 Balance 175 250 Result Diagrams: 08/13/19 03:33 08/13/19 03:33 Hospitalist ROS - Review of Systems Constitutional: denies: fever, chills, sweats, weakness, malaise, other Respiratory: denies: cough, dry, shortness of breath, hemoptysis, SOB with excertion, pleuritic pain, sputum, wheezing, other Cardiovascular: denies: chest pain, palpitations, orthopnea, paroxysmal noc. dyspnea, edema, light headedness, other Gastrointestinal: denies: nausea, vomiting, abdominal pain, diarrhea, constipation, melena, hematochezia, other Genitourinary: denies: dysuria, frequency, incontinence, hematuria, retention, other Neurological: denies: weakness - Medication Medications: Active Medications Generic Name Dose Route Start Last Admin Trade Name Freq PRN Reason Stop Dose Admin Acetaminophen 650 mg 08/11/19 15:59 08/12/19 23:39 Tylenol PO 650 mg Q4H PRN Administration Headache/Fever/Mild Pain (1-3) Allopurinol 150 mg 08/12/19 09:00 08/13/19 09:15 Zyloprim PO 150 mg QAM OLENA Administration Atenolol 25 mg 08/12/19 09:00 08/13/19 09:12 Tenormin PO 25 mg QAM OLENA Administration Calcitriol 0.5 mcg 08/12/19 09:00 08/13/19 09:12 Rocaltrol PO 0.5 mcg DAILY OLENA Administration Epoetin Danielito-epbx 7,500 unit 08/12/19 09:30 08/12/19 10:59 Retacrit SC 7,500 unit Q7D OLENA Administration Famotidine 20 mg 08/12/19 21:00 08/12/19 20:25 Pepcid PO 20 mg 2100 OLENA Administration Heparin Sodium (Porcine) 0 units 08/11/19 16:15 08/13/19 04:45 Heparin 1,000 Units/Ml (10 Ml) SLOW IVP 3,180 unit ASDIR OLENA Administration Protocol Heparin Sodium/Dextrose 500 mls @ 0 mls/hr 08/11/19 16:15 08/12/19 23:46 Heparin 25,000 Units/D5w 500 Ml IVPB 500 mls INF OLENA Administration Protocol Per Protocol Sodium Bicarbonate 650 mg 08/11/19 21:00 08/13/19 09:12 Bicarbonate, Sodium PO 650 mg BID OLENA Administration Terazosin HCl 2 mg 08/11/19 21:00 08/12/19 20:25 Hytrin PO 2 mg HS OLENA Administration - Exam General Appearance: NAD, awake alert Neck: no JVD Heart: RRR, no murmur, no gallops, no rubs, normal peripheral pulses Respiratory: no wheezes, no rales, no ronchi, normal chest expansion, no tachypnea, normal percussion, rales Respiratory - other findings: mild lower field inspiratory rales Gastrointestinal: soft, non-tender, non-distended, normal bowel sounds Extremities - other findings: mild pitting edema b/l lower extremities Psychiatric: normal affect, normal behavior, A&O x 3 Hosp A/P - Plan #NSTEMI -remains asymptomatic -pending [place] 08/14 -meanwhile, will continue medical management #CKD 4 -requires dialysis in preparation for [place] -per nephrology, can't use fistula; right femoral access established and tolerated first session well; pending second session Code status: Full
--- NOTE | 2019-08-13 19:47 | PRG ---
DATE OF SERVICE: 08/13/2019 Mr. Case is doing well today. He is going to have his cardiac cath tomorrow, they have been dialyzing him. He has dysfunctional fistula in the right, he needs a fistulogram. He has temporary femoral vein dialysis catheter. On Sunday, we will plan placement of a hemodialysis cuff tunneled catheter. Awaiting his cardiac cath tomorrow. Job ID: [id number]
[2019-08-13] MEDS: Famotidine 20 MG TAB PO SCH (20:59)
[2019-08-13] MEDS: Terazosin HCl 1 MG CAP PO SCH (21:00)
[2019-08-13] MEDS: Heparin 25,000 units/D5W 500 ML IVPB SCH (23:38)
[2019-08-14 03:43] LABS: #Eosinphils 0.1 thou/uL (0.0-0.7); #Lymphocytes 1.8 thou/uL (1.20-3.40); #Monocytes 0.5 thou/uL (0.11-0.59); #Neutrophils 5.3 thou/uL (1.40-6.50); %Basophils 0.3 % (0.0-1.0); %Eosinophils 1.1 % (0.0-10.0); %Lymphocytes 23.6 % (21.0-51.0); %Monocytes 6.4 % (0.0-10.0); %Neutrophils 68.7 % (42.0-75.0); Hemoglobin 8.5 g/dL (14.0-18.0); Mean Corpuscular HGB CONC 31.6 g/dL (32.0-36.0); Mean Corpuscular Hemoglobin 30.2 pg (27.0-31.0); Mean Corpuscular Volume 95.5 fL (78.0-98.0); Mean Platelet Volume 10.3 fL (7.4-10.4); Platelet Count 98 thou/uL (130-400); RBC Distribution Width 13.4 % (11.5-14.5); Red Blood Cell (RBC) Count 2.82 mill/uL (4.70-6.10); White Blood Cell (WBC) Count 7.8 thou/uL (4.8-10.8)
[2019-08-14] MEDS: Sodium Chloride 0.9% 1,000 ML IV SCH (05:56)
[2019-08-14] MEDS ORDERED: Lidocaine 1% (PF) 30 ML VIAL ONE (09:10)
[2019-08-14] MEDS ORDERED: Heparin (Artline) 1,000 ML ONE (09:10)
[2019-08-14] MEDS: Atenolol 25 MG TAB PO SCH (09:12)
--- NOTE | 2019-08-14 09:27 | PRG ---
DATE OF SERVICE: 08/14/2019 SUBJECTIVE: Mr. Case is a 73-year-old white male, who was initially admitted for chest pain. He was found to have significantly elevated troponin I. He is scheduled for cardiac cath today. Due to his progressive azotemia, I have also initiated hemodialysis with this patient. We attempted to use his AV fistula that this was nonfunctional. A temporary hemodialysis catheter was placed by Dr. Fuchs. He underwent dialysis yesterday without any difficulty. He has no new complaints today. OBJECTIVE: VITAL SIGNS: Blood pressure is 119/77, heart rate 62, respiratory rate 24, and O2 saturation 98%. GENERAL: Noted to be awake, alert, comfortable, not in distress. SKIN: Adequate turgor. HEENT: Slightly pale conjunctivae. Anicteric sclerae. NECK: No neck mass. No carotid bruits. No JVD. CHEST: No deformities. LUNGS: Clear breath sounds. HEART: Normal sinus rhythm. No murmurs. No gallops. No rubs. ABDOMEN: Globular, soft, and nontender. No masses. EXTREMITIES: No edema. No deformities. MEDICATIONS: Medications of August 14, 2019, were reviewed. LABORATORY DATA: Laboratories of August 14, 2019; white count 7.8, hemoglobin 8.5. Sodium 137, potassium 4.6, chloride 107, carbon dioxide 22, BUN 64, creatinine 6.44, magnesium 1.7, and calcium 10.2. ASSESSMENT AND PLAN: 1. Acute myocardial infarction/elevated troponin I - For cardiac catheterization today. 2. Chronic renal failure/end-stage renal disease. Hemodialysis has been initiated. We will plan to do a 3-hour hemodialysis after his cardiac catheterization. 3. Anemia, continuing weekly Epogen. Add ferrous sulfate 325 mg tablet p.o. b.i.d. Overall, agree with current management. Job ID: [id number]
[2019-08-14] MEDS ORDERED: Heparin 10,000 UNITS/ 10 ML VIAL ONE (09:37)
[2019-08-14] MEDS ORDERED: Iopamidol 370 76% 100 ML VIAL ONE (09:38)
[2019-08-14] MEDS ORDERED: Fentanyl 100 MCG/2 ML VIAL ONE (09:46)
[2019-08-14] MEDS ORDERED: Midazolam HCl 2 mg/2 ml Vial ONE (09:46)
[2019-08-14] MEDS ORDERED: Nitroglycerin 100MG/250ML BOT 250 ML ONE (10:28)
[2019-08-14] MEDS ORDERED: Sodium Chloride 0.9% 200 ML IV PRN (10:48)
[2019-08-14] MEDS ORDERED: Acetaminophen/Codeine 30-300mg Tablet PO PRN ×2 (10:48)
[2019-08-14] MEDS ORDERED: Nitroglycerin 0.4 MG TAB (25 Tab Bottle) SL PRN (10:48)
[2019-08-14] MEDS: Aspirin 81 mg Enteric Coated Tablet PO SCH (10:50)
[2019-08-14] MEDS: Calcitriol 0.25 MCG CAP PO SCH (13:55)
[2019-08-14] MEDS: Sodium Bicarbonate Tab 325 MG TAB PO SCH ×2 (13:55→20:32)
[2019-08-14] MEDS: Allopurinol 300 MG TAB PO SCH (13:55)
--- NOTE | 2019-08-14 15:54 | PRG ---
DATE OF SERVICE: 08/14/2019 SUBJECTIVE: Nahun Case is unchanged. He had a cardiac catheterization. He has disease amenable only to medical management. OBJECTIVE: VITAL SIGNS: His blood pressure was 113/67, heart rate 61, respiratory rate 19. LUNGS: Clear. HEART: Regular rhythm. ABDOMEN: Soft. LABORATORY DATA: White count 7.8, hemoglobin 8.5, platelets 98. Sodium 137, potassium 4.6, chloride 107, bicarb 22, BUN 64, creatinine 6.44. IMPRESSION: 1. end-stage renal disease. 2. Coronary artery disease, inoperable. PLAN: Medical management. Transfer to telemetry when bed becomes available. Continue dialysis. He will have tunneled catheter placed, and at some point, he will have upper extremity permanent access placed. We will sign off. Job ID: [id number]
[2019-08-14] MEDS: Ferrous Sulfate 325 MG TAB PO SCH (18:21)
--- NOTE | 2019-08-14 19:26 | PRG ---
DATE OF SERVICE: 08/14/2019 SUBJECTIVE: Nahun Case has a right arm fistula, that he needs a fistulogram. He had a cardiac catheterization performed today by Dr. Muñoz revealing disease, that will be treated medically. Dr. Woods and Dr. Bird are following him. He has a temporary femoral catheter. Plan is to obtain a fistulogram tomorrow. Thus, we will evaluate his right arm fistula. We will plan placement of a hemodialysis cuffed tunneled catheter. We will place a central line due to poor IV access. From a general surgical standpoint and dialysis access standpoint, the patient can be discharged home once dialysis arrangements are made and cardiac status is stable. Marking ultrasound has been repeated of both arms, and cephalic vein in the upper extremities is markedly dilated as expected after fistula formation. Basilic vein is also dilated. Clinically, the cephalic vein in the right upper extremity after fistula formation is not easily accessible. Left arm veins are also available for dialysis access if needed. ASSESSMENT AND PLAN: 1. Malfunctioning right arm dialysis fistula, lack of maturation. Plan fistulogram. 2. End-stage renal disease. Initiated dialysis in this hospitalization. Plan placement of cuffed tunneled hemodialysis catheter and central line tomorrow. Job ID: [id number]
[2019-08-14] MEDS: Famotidine 20 MG TAB PO SCH (20:31)
[2019-08-14] MEDS: Rosuvastatin 10 MG TAB PO SCH (20:31)
[2019-08-14] MEDS: Terazosin HCl 1 MG CAP PO SCH (20:32)
--- NOTE | 2019-08-14 20:42 | PDOC.HOSPP ---
- Subjective Encounter Date: 08/14/19 Encounter Time: 08:00 Subjective: no overnight events. This morning, feeling well prior to C procedure and has no complaints. - Objective Vital Signs & Weight: Vital Signs (12 hours) Temp Pulse 08/14/19 19:00 98.4 F 08/14/19 16:17 97.2 F L 08/14/19 11:00 97.2 F L 08/14/19 09:12 54 L Weight Weight 233 lb 9 oz Most Recent Monitor Data Heart Rate from ECG 70 NIBP 125/90 NIBP BP-Mean 101 Respiration from ECG 20 SpO2 100 I&O: 08/13/19 08/14/19 08/15/19 06:59 06:59 06:59 Intake Total 550 606 Output Total 300 350 Balance 250 256 Result Diagrams: 08/14/19 03:30 08/15/19 03:06 Hospitalist ROS - Review of Systems Constitutional: denies: fever, chills, sweats, weakness, malaise, other Cardiovascular: denies: chest pain, palpitations, orthopnea, paroxysmal noc. dyspnea, edema, light headedness, other Gastrointestinal: denies: nausea, vomiting, abdominal pain, diarrhea, constipation, melena, hematochezia, other Genitourinary: denies: hematuria Neurological: denies: weakness - Medication Medications: Active Medications Generic Name Dose Route Start Last Admin Trade Name Freq PRN Reason Stop Dose Admin Acetaminophen 650 mg 08/11/19 15:59 08/12/19 23:39 Tylenol PO 650 mg Q4H PRN Administration Headache/Fever/Mild Pain (1-3) Allopurinol 150 mg 08/12/19 09:00 08/14/19 13:55 Zyloprim PO Not Given QAM [facility] Aspirin 81 mg 08/14/19 09:00 08/14/19 10:50 Ecotrin PO Not Given DAILY OLENA Atenolol 25 mg 08/12/19 09:00 08/14/19 09:12 Tenormin PO 25 mg QAM OLENA Administration Calcitriol 0.5 mcg 08/12/19 09:00 08/14/19 13:55 Rocaltrol PO Not Given DAILY OLENA Epoetin Danielito-epbx 7,500 unit 08/12/19 09:30 08/12/19 10:59 Retacrit SC 7,500 unit Q7D OLENA Administration Famotidine 20 mg 08/12/19 21:00 08/14/19 20:31 Pepcid PO 20 mg 2100 OLENA Administration Ferrous Sulfate 325 mg 08/14/19 17:00 08/14/19 18:21 Feosol PO 325 mg BID-WM OLENA Administration Sodium Chloride 1,000 mls @ 50 mls/hr 08/14/19 06:00 08/14/19 05:56 Normal Saline 0.9% IV 1,000 mls .Q20H OLENA Administration Rosuvastatin Calcium 10 mg 08/14/19 21:00 08/14/19 20:31 Crestor PO 10 mg HS OLENA Administration Sodium Bicarbonate 650 mg 08/11/19 21:00 08/14/19 20:32 Bicarbonate, Sodium PO 650 mg BID OLENA Administration Sodium Chloride 10 ml 08/13/19 21:00 08/14/19 20:32 Flush - Normal Saline IVF 10 ml Q12HR OLENA Administration Terazosin HCl 2 mg 08/11/19 21:00 08/14/19 20:32 Hytrin PO 2 mg HS OLENA Administration - Exam General Appearance: NAD, awake alert Heart: RRR, no murmur, no gallops Respiratory: CTAB, no wheezes, no rales, no ronchi Gastrointestinal: soft, non-tender, non-distended, normal bowel sounds Extremities: 1+ LE edema Neurological: cranial nerve grossly intact, normal sensation to touch, no weakness Psychiatric: normal affect, normal behavior, A&O x 3 Hosp A/P - Plan #NSTEMI -remains asymptomatic -pending [facility] 08/14 -meanwhile, will continue medical management #CKD 4 -requires dialysis in preparation for [facility] -per nephrology, can't use fistula; right femoral access established and tolerated first session well; underwent second session in preparation for [facility] Code status: Full
[2019-08-15 03:59] LABS: Anion Gap 13 mmol/L (10-20); BUN (Urea Nitrogen) 39 mg/dL (8.4-25.7); Calc. Creatinine Clearance 20 mL/min (70-130); Calcium 10.5 mg/dL (7.8-10.44); Carbon Dioxide 26 mmol/L (23-31); Chloride 101 mmol/L (98-107); Estimated GFR-MDRD 11; Glucose 98 mg/dL (83-110); Potassium 4.1 mmol/L (3.5-5.1); Sodium 136 mmol/L (136-145)
--- NOTE | 2019-08-15 08:38 | PRG ---
DATE OF SERVICE: 08/15/2019 SUBJECTIVE: Mr. Case is doing well. No complaints. No chest pain or pressure. OBJECTIVE: VITAL SIGNS: Blood pressure 95/68, pulse is in the 60s. LUNGS: Clear. CARDIAC: There is a soft systolic murmur of aortic stenosis. ABDOMEN: Soft, nontender. EXTREMITIES: No edema. ASSESSMENT: 1. Coronary artery disease, severe diffuse recent occlusion of a calcified right coronary diffuse atherosclerosis in the LAD and circumflex, not an operative candidate. 2. Severe, but not critical aortic stenosis. 3. Left ventricular dysfunction with an ejection fraction of 35% to 40%. 4. End-stage renal disease. PLAN: 1. He is on aspirin. 2. He is on beta blockers. 3. Statins. 4. Unfortunately, long-term prognosis is poor. I did ask Dr. Rosas to review the cath films, but I do not think the patient is an operative candidate. The main goal at this time is to get dialysis access. Continue current medical regimen. One of my partners will be available this weekend if needed. Job ID: [id number]
[2019-08-15] MEDS ORDERED: Fentanyl 100 MCG/2 ML VIAL ONE (09:00)
[2019-08-15] MEDS ORDERED: Midazolam HCl 2 mg/2 ml Vial ONE (09:00)
[2019-08-15] MEDS ORDERED: Sodium Chloride 0.9% 0 ML ONE (09:09)
[2019-08-15] MEDS ORDERED: Heparin 10,000 UNITS/1 ML VIAL ONE (09:09)
[2019-08-15] MEDS ORDERED: Bupivacaine PF 0.5% 30 ML VIAL ONE (09:09)
[2019-08-15] MEDS ORDERED: EPINEPHrine 1 MG/ML AMP ONE (09:09)
[2019-08-15] MEDS ORDERED: Lidocaine 2% PF 5 ML VIAL ONE (09:11)
[2019-08-15] MEDS ORDERED: Lidocaine 2% w/Epinephrine 1:200K 20 ML VIAL ONE (09:13)
--- NOTE | 2019-08-15 09:38 | PRG ---
DATE OF SERVICE: 08/15/2019 Mr. Case is doing well today. He had a cardiac cath yesterday. It showed inoperable coronary artery disease with a known EF of 30% to 40% cardiomyopathy after non-STEMI myocardial infarction. The patient has significant aortic stenosis that will be monitored at this time. No intervention for his coronary artery disease due to his distal disease and poor ejection fraction. This will be treated medically. The patient has a dysfunctional right arm fistula. Today, we will plan placement of cuffed-tunneled hemodialysis catheter central line, so that we can remove his right groin temporary dialysis catheter. We will then send him to special procedures for a fistulogram to determine his right arm fistula status and to determine if he needs a revision in the future for definitive maturation. We will of course postpone any indicated revisions until the future after he has had some time to recover for his myocardial infarction. This revision if indicated can be done as an outpatient. Job ID: [id number]
[2019-08-15] MEDS ORDERED: Sodium Chloride 0.9% 30 ML ONE (10:02)
[2019-08-15] MEDS ORDERED: Ondansetron HCl/PF 4 MG/2 ML Vial IVP PRN (10:25)
[2019-08-15] MEDS ORDERED: Promethazine HCl 25 MG/ML VIAL SLOW IVP PRN (10:25)
[2019-08-15] MEDS ORDERED: Promethazine HCl 25 MG/ML VIAL IM PRN (10:25)
[2019-08-15] MEDS ORDERED: Lidocaine 1% PF 5 ML VIAL ONE (10:33)
[2019-08-15] MEDS ORDERED: PROPOFOL 200 MG/20 ML VIAL ONE (10:33)
--- NOTE | 2019-08-15 11:13 | OP ---
DATE OF PROCEDURE: 08/15/2019 PREOPERATIVE DIAGNOSES: 1. End-stage renal disease. 2. Right arm dialysis fistula malfunction. 3. Plan for a fistulogram today. 4. Acute myocardial infarction with cardiomyopathy, 20% to 30% and cardiac catheterization revealed inoperable disease to be treated medically. 5. Poor IV access. POSTOPERATIVE DIAGNOSES: 1. End-stage renal disease. 2. Right arm dialysis fistula malfunction. 3. Plan for a fistulogram today. 4. Acute myocardial infarction with cardiomyopathy, 20% to 30% and cardiac catheterization revealed inoperable disease to be treated medically. 5. Poor IV access. PROCEDURES PERFORMED: 1. Placement of right internal jugular cuffed tunneled hemodialysis catheter, AngioDynamics pre-curved. 2. Left IJ triple-lumen catheter. 3. Ultrasound and fluoroscopy use. ANESTHESIA: TIVA, local with 0.5% Marcaine 30 mL, mixed with 1% Xylocaine with epinephrine 20 mL. DESCRIPTION OF PROCEDURE: The patient was taken to the operating room, where under intravenous sedation, neck and chest were prepared with ChloraPrep and draped in routine fashion. Local anesthetic mixture was infiltrated into the skin and subcutaneous tissue about the operative site. Ultrasound guidance was used to cannulate both the right and left internal jugular veins and J-wire was threaded, trocar catheter removed. Skin site was enlarged sharply at the J-wire entry sites on both sides and a stab incision was made over the right chest. Seldinger technique used to place a triple-lumen catheter in the left IJ, securing it with 3-0 nylon suture. Biopatch sterile dressing applied. Each port aspirated blood, flushed with saline solution. AngioDynamics pre-curved hemodialysis catheter tunneled, placing the fabric cuff beneath the catheter exit site over the right chest and catheter was secured with 3-0 nylon suture. Small and medium size dilators placed over the J-wire into the internal jugular vein and removed. Dilator and Peel-Away sheath placed into the superior vena cava. Dilator and J-wire were removed. Catheter placed through the Peel-Away sheath. Peel-away sheath removed. Fluoroscopically, catheter was noted to be in good position. The hemodialysis catheter aspirated blood, flushed with saline solution and heparinized saline solution with 1000 units of heparin per mL, indicating volume of the port. The patient tolerated the procedure well. Sterile dressings applied forceps. Fluoroscopic images revealed good line placement. The patient will be sent for a fistulogram and hemodialysis. Job ID: [id number]
--- NOTE | 2019-08-15 11:56 | CON ---
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 Troponin was elevated at 44 on admission. He has a history of hypertension, but is a nonsmoker. He was unaware of any valvular or cardiac problems in the past. Since admission, the patient has been evaluated for his [id number] CA including a cardiac echo, showing 35% ejection fraction, at least moderate mitral regurgitation, pulmonary hypertension, and severe aortic valve stenosis with a valve area of 1.0. The leaflets were fairly immobile on that echo on my review. His mitral regurgitation was a jet posterior directed. A cardiac catheterization was performed, showing a right coronary artery that was occluded distally with only very faint collateralization with no significant vessels showing distally. His left main was normal. His circumflex was a very small system. He did have a ramus that was a sizable branch without disease and bifurcated early. He had an LAD diagonal system that was very small with diffuse rather 70% stenosis. The patient's cath was done with a four-Persian catheter and the vessels appeared to be about this size. Since admission, the patient has undergone 3 dialysis procedures and had a Permacath placed this morning. He had a previous AV fistula in his right arm, that had not matured, although it is functioning. MEDICATIONS AT HOME: Included: 1. Hytrin. 2. Sodium bicarbonate. 3. Atenolol. 4. Allopurinol. 5. Iron. DIAGNOSTIC STUDIES: EKG shows a bifascicular block. Hemoglobin is 9 and platelet count is diminished at 90,000 to 100,000. Chest x-ray shows cardiomegaly. PHYSICAL EXAMINATION: GENERAL: He is an alert and cooperative gentleman, 5 feet 8 inches, 233 pounds, and BMI of 36. NECK: He has a catheter in both sides of his neck with a permanent dialysis catheter on the right and a triple-lumen on the left. He has a continuous bruit or flow murmur in the right infraclavicular area and I do not clearly hear an aortic murmur. He does have a mitral murmur at the left lower sternal border. ABDOMEN: Obese and nontender. I cannot appreciate any masses. EXTREMITIES: He has no peripheral edema. He has a strong femoral and popliteal pulses. I do not appreciate any pedal pulses. ASSESSMENT AND PLAN: At this time, the patient has significant coronary artery disease with the potential targets of a left anterior descending diagonal, but these are both very small targets. He has severe aortic valve stenosis in combination with at least moderate mitral regurgitation and pulmonary hypertension. Currently initiating hemodialysis. Potentially, he could have a coronary bypass grafting to the left anterior descending diagonal with an aortic valve replacement, but I think the coronary part of this procedure would be disappointing due to the very small target size. Another option would be transaortic valve replacement procedure, although this is somewhat problematic in the dialysis population with poor survival. Overall, at this time, would get an opinion on a transaortic valve replacement and proceed from there. Job ID: [id number]
--- NOTE | 2019-08-15 13:43 | RAD ---
SINGLE VIEW CHEST: Date: 08/15/2019 COMPARISON: 08/11/2019. HISTORY: Central line placement. FINDINGS: Single view of chest shows an enlarged but stable cardiomediastinal silhouette. There is a right IJ h emodialysis catheter with its tip in the superior vena cava. A left IJ central venous catheter is see n with its tip in the superior vena cava. There is no evidence of consolidation, mass, pneumothorax, or pleural effusion. IMPRESSION: Status post central line placement without evidence of complication. POS: TPC
[2019-08-15] MEDS: Ferrous Sulfate 325 MG TAB PO SCH ×2 (15:01→18:24)
[2019-08-15] MEDS: Sodium Bicarbonate Tab 325 MG TAB PO SCH ×2 (15:02→22:14)
[2019-08-15] MEDS: Allopurinol 300 MG TAB PO SCH (17:09)
[2019-08-15] MEDS: Calcitriol 0.25 MCG CAP PO SCH (17:10)
[2019-08-15] MEDS: Aspirin 81 mg Enteric Coated Tablet PO SCH (17:10)
[2019-08-15] MEDS: Atenolol 25 MG TAB PO SCH (17:10)
[2019-08-15] MEDS: Sodium Chloride 0.9% 1,000 ML IV SCH (17:11)
[2019-08-15] MEDS ORDERED: Atenolol 25 MG TAB PO SCH (17:45)
--- NOTE | 2019-08-15 19:22 | PRG ---
DATE OF SERVICE: 08/15/2019 Mr. Case is doing well today. He had his hemodialysis catheter placed today. He dialyzed. The fistulogram could not be performed because the Radiology Department was overwhelmed. The patient's fistulogram will be performed next week. This can be performed as an inpatient or outpatient. If the patient is suitable for discharge over the weekend, he can go home and then fistulogram could be obtained as an outpatient. I will be away for the next 5 days. The patient's central line should be removed prior to discharge. The patient may need a second operation to mature his right arm fistula, but that would be pending fistulogram results, and we would of course wait for 2 weeks, and this will be done as an outpatient if indicated allowing the patient time to convalesce from his myocardial infarction. Job ID: [id number]
[2019-08-15] MEDS: Famotidine 20 MG TAB PO SCH (22:14)
[2019-08-15] MEDS: Rosuvastatin 10 MG TAB PO SCH (22:14)
[2019-08-15] MEDS: Terazosin HCl 1 MG CAP PO SCH (22:14)
--- NOTE | 2019-08-15 22:20 | PDOC.HOSPP ---
- Subjective Encounter Date: 08/15/19 Encounter Time: 10:00 Subjective: no overnight events. This morning, pending IJ HD access placement and removal of femoral access, pending fistulogram on 08/18 for malfunctioning fistula. Meanwhile treating diffuse CAD disease and NSTEMI medically. Continues to feel well and has no complaints. - Objective Vital Signs & Weight: Vital Signs (12 hours) Temp Pulse Resp BP Pulse Ox 08/15/19 20:01 99.4 F 68 16 120/72 100 08/15/19 18:24 70 08/15/19 18:20 98.2 F 70 18 129/74 95 08/15/19 17:10 60 08/15/19 11:05 96 F L 60 18 119/67 96 Weight Weight 233 lb 9 oz Most Recent Monitor Data Heart Rate from ECG 64 NIBP 95/68 NIBP BP-Mean 77 Respiration from ECG 24 SpO2 97 I&O: 08/14/19 08/15/19 08/16/19 06:59 06:59 06:59 Intake Total 606 440 Output Total 637 769 2842 Balance 256 -300 -810 Result Diagrams: 08/14/19 03:30 08/15/19 03:06 Hospitalist ROS - Review of Systems Constitutional: denies: fever, chills, sweats, weakness, malaise, other Respiratory: denies: cough, dry, shortness of breath, hemoptysis, SOB with excertion, pleuritic pain, sputum, wheezing, other Cardiovascular: denies: chest pain, palpitations, orthopnea, paroxysmal noc. dyspnea, edema, light headedness, other Gastrointestinal: denies: nausea, vomiting, abdominal pain, diarrhea, constipation, melena, hematochezia, other Genitourinary: denies: dysuria, frequency, incontinence, hematuria, retention, other Neurological: denies: weakness - Medication Medications: Active Medications Generic Name Dose Route Start Last Admin Trade Name Freq PRN Reason Stop Dose Admin Acetaminophen 650 mg 08/11/19 15:59 08/12/19 23:39 Tylenol PO 650 mg Q4H PRN Administration Headache/Fever/Mild Pain (1-3) Allopurinol 150 mg 08/12/19 09:00 08/15/19 17:09 Zyloprim PO Not Given QAM [facility] Aspirin 81 mg 08/14/19 09:00 08/15/19 17:10 Ecotrin PO Not Given DAILY OLENA Atenolol 25 mg 08/12/19 09:00 08/15/19 17:10 Tenormin PO Not Given QAM OLENA Calcitriol 0.5 mcg 08/12/19 09:00 08/15/19 17:10 Rocaltrol PO Not Given DAILY OLENA Epoetin Danielito-epbx 7,500 unit 08/12/19 09:30 08/12/19 10:59 Retacrit SC 7,500 unit Q7D OLENA Administration Famotidine 20 mg 08/12/19 21:00 08/15/19 22:14 Pepcid PO 20 mg 2100 OLENA Administration Ferrous Sulfate 325 mg 08/14/19 17:00 08/15/19 18:24 Feosol PO 325 mg BID-WM OLENA Administration Rosuvastatin Calcium 10 mg 08/14/19 21:00 08/15/19 22:14 Crestor PO 10 mg HS OLENA Administration Sodium Bicarbonate 650 mg 08/11/19 21:00 08/15/19 22:14 Bicarbonate, Sodium PO 650 mg BID OLENA Administration Sodium Chloride 10 ml 08/13/19 21:00 08/15/19 22:14 Flush - Normal Saline IVF 10 ml Q12HR OLENA Administration Terazosin HCl 2 mg 08/11/19 21:00 08/15/19 22:14 Hytrin PO 2 mg HS OLENA Administration - Exam General Appearance: NAD, awake alert Neck: supple, symmetric, no JVD, no thyromegaly, no lymphadenopathy, no carotid bruit Heart: RRR, no murmur, no gallops, no rubs, normal peripheral pulses Respiratory: CTAB, no wheezes, no rales, no ronchi, normal chest expansion, no tachypnea, normal percussion Gastrointestinal: soft, non-tender, non-distended, normal bowel sounds, no palpable masses, no hepatomegaly, no splenomegaly, no bruit Extremities: 1+ LE edema Psychiatric: normal affect, normal behavior, A&O x 3 Hosp A/P - Plan #NSTEMI -remains asymptomatic -LHC showing diffuse nonoperable CAD disease -will continue medical management #CKD 4 -requires dialysis in preparation for LHC -per nephrology, can't use fistula; right femoral access established and tolerated first session well; underwent second session in preparation for LHC -malfunctioning fistula; will remove femoral access and place R IJ access, then will undergo fistulogram on Sunday. Code status: Full
[2019-08-16 04:34] LABS: #Eosinphils 0.1 thou/uL (0.0-0.7); #Lymphocytes 1.2 thou/uL (1.20-3.40); #Monocytes 0.6 thou/uL (0.11-0.59); #Neutrophils 4.3 thou/uL (1.40-6.50); %Basophils 0.4 % (0.0-1.0); %Eosinophils 2.2 % (0.0-10.0); %Lymphocytes 18.8 % (21.0-51.0); %Monocytes 9.2 % (0.0-10.0); %Neutrophils 69.4 % (42.0-75.0); Hemoglobin 8.2 g/dL (14.0-18.0); Mean Corpuscular Hemoglobin 32.1 pg (27.0-31.0); Mean Corpuscular Volume 94.5 fL (78.0-98.0); Mean Platelet Volume 9.6 fL (7.4-10.4); Platelet Count 122 thou/uL (130-400); RBC Distribution Width 13.3 % (11.5-14.5); Red Blood Cell (RBC) Count 2.56 mill/uL (4.70-6.10); White Blood Cell (WBC) Count 6.2 thou/uL (4.8-10.8)
[2019-08-16 04:53] LABS: Anion Gap 14 mmol/L (10-20); BUN (Urea Nitrogen) 26 mg/dL (8.4-25.7); Calc. Creatinine Clearance 23 mL/min (70-130); Calcium 10.1 mg/dL (7.8-10.44); Carbon Dioxide 29 mmol/L (23-31); Chloride 98 mmol/L (98-107); Estimated GFR-MDRD 14; Glucose 100 mg/dL (83-110); Magnesium 1.9 mg/dL (1.6-2.6); Potassium 3.5 mmol/L (3.5-5.1); Sodium 137 mmol/L (136-145)
[2019-08-16] MEDS: Ferrous Sulfate 325 MG TAB PO SCH ×2 (09:13→17:09)
[2019-08-16] MEDS: Allopurinol 300 MG TAB PO SCH (09:13)
[2019-08-16] MEDS: Atenolol 25 MG TAB PO SCH (09:14)
[2019-08-16] MEDS: Aspirin 81 mg Enteric Coated Tablet PO SCH (09:14)
[2019-08-16] MEDS: Sodium Bicarbonate Tab 325 MG TAB PO SCH ×2 (09:14→20:44)
[2019-08-16] MEDS: Calcitriol 0.25 MCG CAP PO SCH (09:14)
--- NOTE | 2019-08-16 11:22 | PRG ---
DATE OF SERVICE: 08/16/2019 SERVICE: Nephrology. SUBJECTIVE: A 73-year-old male with known history of CKD 4/5, admitted with chest pain associated with shortness of breath. The patient was found to have acute myocardial infarction, needing cardiac catheterization, and was subsequently initiated on hemodialysis. Doing well. Last hemodialysis was yesterday on 08/15/2019. Complains of generalized weakness. OBJECTIVE: VITAL SIGNS: Temperature 98.1, pulse 65, respiratory rate 20, SpO2 of 98% on room air, blood pressure is 98/58. GENERAL: Obese male, in no obvious distress. Afebrile. Anicteric. Acyanotic. HEENT: Normocephalic, atraumatic. Oral mucosa is moist. CARDIOVASCULAR: Regular rhythm and rate with soft systolic murmur. RESPIRATORY: Fair air entry bilaterally with no obvious rhonchi or use of accessory muscles. GI: Obese, soft, nontender, nondistended with normal bowel sounds. EXTREMITIES: Trace leg edema. Otherwise, grossly unremarkable with no erythema. PRN OCCUPATIONAL THERAPIST: Conscious, alert, and oriented x3 with appropriate mental status. Cranial nerves 2 through 12 are grossly intact. DIAGNOSTIC DATA: CBC showed WBC count of 6.2, hemoglobin of 8.2, platelets of 122. Chemistry showed sodium 137, potassium 3.5, chloride 98, CO2 of 29, BUN 26, creatinine 4.27, glucose 100, calcium 10.1, magnesium 1.9. ASSESSMENT: 1. End-stage renal disease, initiated on hemodialysis. 2. Hypotension. 3. Aortic stenosis. 4. Coronary artery disease with occlusive disease. CABG/aortic valve replacement contemplated. 5. Anemia in chronic kidney disease. 6. Hyperkalemia, resolved. PLAN: 1. Continue hemodialysis on Sunday, Sunday, Sunday. There is no indication for emergent dialysis today. 2. We will monitor vitals closely and possibly hold antihypertensives due to soft blood pressure. 3. We will continue iron and erythrocyte-stimulating agent therapy. 4. Further treatment to follow depending on hospital course. Job ID: [id number] MTDD
--- NOTE | 2019-08-16 13:45 | PDOC.HOSPP ---
- Subjective Encounter Date: 08/16/19 Encounter Time: 13:44 Subjective: Mr. Case was seen today in follow-up of generalized weakness, and chest pain. He notes some continues fatigue when he walks, otherwise no chest pain or dyspnea. - Objective Vital Signs & Weight: Vital Signs (12 hours) Temp Pulse Resp BP BP Pulse Ox 08/16/19 11:20 98 F 61 16 101/59 L 98 08/16/19 09:14 65 98/58 L 08/16/19 07:42 98.1 F 65 20 98/58 L 98 08/16/19 07:30 98 08/16/19 03:32 98.2 F 62 20 102/63 100 Weight Weight 233 lb 9 oz Most Recent Monitor Data Heart Rate from ECG 64 NIBP 95/68 NIBP BP-Mean 77 Respiration from ECG 24 SpO2 97 I&O: 08/15/19 08/16/19 08/17/19 06:59 06:59 06:59 Intake Total 680 300 Output Total 300 1250 Balance -300 -570 300 Result Diagrams: 08/16/19 04:13 08/16/19 04:13 Hospitalist ROS - Medication Medications: Active Medications Generic Name Dose Route Start Last Admin Trade Name Freq PRN Reason Stop Dose Admin Acetaminophen 650 mg 08/11/19 15:59 08/12/19 23:39 Tylenol PO 650 mg Q4H PRN Administration Headache/Fever/Mild Pain (1-3) Allopurinol 150 mg 08/12/19 09:00 08/16/19 09:13 Zyloprim PO 150 mg QAM OLENA Administration Aspirin 81 mg 08/14/19 09:00 08/16/19 09:14 Ecotrin PO 81 mg DAILY OLENA Administration Atenolol 25 mg 08/12/19 09:00 08/16/19 09:14 Tenormin PO 25 mg QAM OLENA Administration Calcitriol 0.5 mcg 08/12/19 09:00 08/16/19 09:14 Rocaltrol PO 0.5 mcg DAILY OLENA Administration Epoetin Danielito-epbx 7,500 unit 08/12/19 09:30 08/12/19 10:59 Retacrit SC 7,500 unit Q7D OLENA Administration Famotidine 20 mg 08/12/19 21:00 08/15/19 22:14 Pepcid PO 20 mg 2100 OLENA Administration Ferrous Sulfate 325 mg 08/14/19 17:00 08/16/19 09:13 Feosol PO 325 mg BID-WM OLENA Administration Rosuvastatin Calcium 10 mg 08/14/19 21:00 08/15/19 22:14 Crestor PO 10 mg HS OLENA Administration Sodium Bicarbonate 650 mg 08/11/19 21:00 08/16/19 09:14 Bicarbonate, Sodium PO 650 mg BID OLENA Administration Sodium Chloride 10 ml 08/13/19 21:00 08/16/19 09:15 Flush - Normal Saline IVF 10 ml Q12HR OLENA Administration Terazosin HCl 2 mg 08/11/19 21:00 08/15/19 22:14 Hytrin PO 2 mg HS OLENA Administration - Exam Eye: PERRL Heart: RRR, no gallops, no rubs, murmur present (systolic), II/IV Respiratory: CTAB, no wheezes, no rales, no ronchi, normal chest expansion, no tachypnea, normal percussion Gastrointestinal: soft, non-tender, non-distended, normal bowel sounds Extremities: no cyanosis, no clubbing, no edema Hosp A/P (1) CAD (coronary artery disease) Code(s): I25.10 - ATHSCL HEART DISEASE OF [place] CORONARY ARTERY W/O ANG PCTRS Status: Acute (2) Chest pain Code(s): R07.9 - CHEST PAIN, UNSPECIFIED Status: Acute (3) HTN (hypertension) Code(s): I10 - ESSENTIAL (PRIMARY) HYPERTENSION Status: Acute (4) End stage renal disease on dialysis Code(s): N18.6 - END STAGE RENAL DISEASE; Z99.2 - DEPENDENCE ON RENAL DIALYSIS Status: Acute - Plan * CAD- patient was found to have 3 vessel CAD, and not an ideal surgical candidate due to poor target vessels * Aortic Stenosis- he has critical - This is under evaluation by Dr. Rosas- plan is for consideration of TAVR * ESRD- he has been started on dialysis. He tells me he has been cleared to use the right AV- fistula- * HTN- blood pressure is borderline- agree with holding antihypertensives as necessary
--- NOTE | 2019-08-16 15:30 | PDOC.CPN ---
- Subjective Date: 08/16/19 Time: 15:15 Interval history: Mr. Case is awake, lying in bed watching TV. Denies any chest pain. Does report shortness of breath with any exertion, denies orthopnea, PND. Denies N/V /D. No overnight events on telemetry. - Review of Systems General: denies: fever/chills, weight/appetite/sleep changes, night sweats, fatigue Respiratory: reports: shortness of breath Cardiovascular: denies: chest pain, palpitation, edema, paroxysmal nocturnal dyspnea, orthopnea Gastrointestinal: denies: nausea, vomiting, diarrhea, constipation, abd pain, GI bleeding Musculoskeletal: denies: pain, tenderness, stiffness, swelling, arthritis/ arthralgias Neurological: denies: numbness, syncope, seizure, weakness - Objective Allergies/Adverse Reactions: Allergies Allergy/AdvReac Type Severity Reaction Status Date / Time No Known Allergies Allergy Unverified 05/02/18 12:06 Visit Medications: Current Medications Acetaminophen (Tylenol) 650 mg PO Q4H PRN PRN Reason: Headache/Fever/Mild Pain (1-3) Last Admin: 08/12/19 23:39 Dose: 650 mg Acetaminophen/Codeine Phosphate (Tylenol #3) 1 tab PO Q4H PRN PRN Reason: Mild Pain (1-3) Acetaminophen/Codeine Phosphate (Tylenol #3) 2 tab PO Q4H PRN PRN Reason: Moderate Pain (4-6) Albuterol/Ipratropium (Duoneb) 3 ml NEB Q4H PRN PRN Reason: SOB &/or Wheezing Allopurinol (Zyloprim) 150 mg PO QAM [facility] Last Admin: 08/16/19 09:13 Dose: 150 mg Aspirin (Ecotrin) 81 mg PO DAILY [facility] Last Admin: 08/16/19 09:14 Dose: 81 mg [facility]) [facility] [place] Last Admin: 08/16/19 09:14 Dose: 25 mg Benzonatate (Tessalon) 100 mg PO Q4H PRN PRN Reason: Cough Bisacodyl (Dulcolax) 10 mg PO DAILYPRN PRN PRN Reason: Constipation Calcitriol (Rocaltrol) 0.5 mcg PO DAILY [facility] Last Admin: 08/16/19 09:14 Dose: 0.5 mcg Calcium Carbonate (Tums) 1,000 mg PO Q4H PRN PRN Reason: Heartburn or Indigestion Diphenhydramine HCl (Benadryl) 25 mg PO Q6H PRN PRN Reason: Itching & Insomnia Docusate Sodium (Colace) 100 mg PO BIDPRN PRN PRN Reason: Constipation Epoetin Danielito-epbx (Retacrit) 7,500 unit SC Q7D [facility] Last Admin: 08/12/19 10:59 Dose: 7,500 unit Famotidine (Pepcid) 20 mg PO 2100 [facility] Last Admin: 08/15/19 22:14 Dose: 20 mg Ferrous Sulfate (Feosol) 325 mg PO BID-[facility] Last Admin: 08/16/19 09:13 Dose: 325 mg Hydralazine HCl (Apresoline) 10 mg SLOW IVP Q4H PRN PRN Reason: Hypertension Loperamide HCl (Imodium) 2 mg PO PRN PRN PRN Reason: Diarrhea/Loose Stools Melatonin (Melatonin) 3 mg PO HS PRN PRN Reason: Insomnia Morphine Sulfate (Morphine) 2 mg SLOW IVP Q4H PRN PRN Reason: PAIN 6-10 Nitroglycerin (Nitrostat) 0.4 mg SL Q5MIN PRN PRN Reason: Chest Pain Ondansetron HCl (Zofran Odt) 4 mg PO Q6H PRN PRN Reason: Nausea/Vomiting Ondansetron HCl (Zofran) 4 mg IVP Q6H PRN PRN Reason: Nausea/Vomiting Rosuvastatin Calcium (Crestor) 10 mg PO HS [facility] Last Admin: 08/15/19 22:14 Dose: 10 mg Sodium Bicarbonate (Bicarbonate, Sodium) 650 mg PO BID [facility] Last Admin: 08/16/19 09:14 Dose: 650 mg Sodium Chloride (Flush - Normal Saline) 10 ml IVF Q12HR [facility] Last Admin: 08/16/19 09:15 Dose: 10 ml Sodium Chloride (Flush - Normal Saline) 10 ml IVF PRN PRN PRN Reason: Saline Flush Terazosin HCl (Hytrin) 2 mg PO HS [facility] Last Admin: 08/15/19 22:14 Dose: 2 mg Vital Signs & Weight: Vital Signs Temp Pulse Resp BP BP Pulse Ox 08/16/19 15:21 97.9 F 64 16 109/67 98 08/16/19 11:20 98 F 61 16 101/59 L 98 08/16/19 09:14 65 98/58 L 08/16/19 07:42 98.1 F 65 20 98/58 L 98 08/16/19 07:30 98 08/16/19 03:32 98.2 F 62 20 102/63 100 Weight 233 lb 9 oz - Quality Measures Condition: Coronary Artery Disease CV meds: Beta Guille: No, ELISABET/ARB: No (ESRD on HD), Statin: Yes, ASA: Yes, Plavix/Effient/Brilinta: No, Anticoagulant: No - Physical Exam General: alert & oriented x3, appears well, no apparent distress HEENT: mucus membranes moist, normocephaly Neck: no JVD/HJR, no bruit Cardiac: regular rate and rhythm, S1/S2, systolic murmur (2/6 DORIS) Lungs: normal breath sounds, no wheeze, rales, rhonchi Neuro: grossly intact Abdomen: active bowel sounds, soft, non-tender Extremities: no cyanosis, no clubbing, no edema - Labs Result Diagrams: 08/16/19 04:13 08/16/19 04:13 Troponin/CKMB CK-MB (CK-2) 88.9 ng/mL (0-6.6) H* 08/11/19 13:22 Troponin I 28.848 ng/mL (< 0.028) H* 08/12/19 03:20 - Telemetry Sinus rhythms and dysrhythmias: sinus rhythm (1st degree AVB, R BBB) - Assessment/Plan Assessment/Plan: 1. CAD-severe, diffuse disease, not a good candidate for CABG, poor target vessels. Recommend continuing current medical therapy. CV surgery consult appreciated. 2.HTN-borderline low, hold antihypertensives as needed. 3.ESRD-on HD. 4.Severe -consideration for TAVR 5.Chronic systolic HF-appears euvolemic, EF 30-35. Agree with above. No other recommendations
[2019-08-16] MEDS: Famotidine 20 MG TAB PO SCH (20:44)
[2019-08-16] MEDS: Terazosin HCl 1 MG CAP PO SCH (20:45)
[2019-08-16] MEDS: Rosuvastatin 10 MG TAB PO SCH (20:45)
[2019-08-17] MEDS: Allopurinol 300 MG TAB PO SCH (08:46)
[2019-08-17] MEDS: Ferrous Sulfate 325 MG TAB PO SCH ×2 (08:46→17:24)
[2019-08-17] MEDS: Atenolol 25 MG TAB PO SCH (08:47)
[2019-08-17] MEDS: Calcitriol 0.25 MCG CAP PO SCH (08:47)
[2019-08-17] MEDS: Sodium Bicarbonate Tab 325 MG TAB PO SCH ×2 (08:47→20:00)
[2019-08-17] MEDS: Aspirin 81 mg Enteric Coated Tablet PO SCH (08:47)
--- NOTE | 2019-08-17 10:46 | PDOC.HOSPP ---
- Subjective Encounter Date: 08/17/19 Encounter Time: 10:44 Subjective: Mr. Case was seen today in follow-up of CAD and . He does not have any complaints today. He denies chest pain or difficulty breathing. - Objective Vital Signs & Weight: Vital Signs (12 hours) Temp Pulse Resp BP BP Pulse Ox 08/17/19 08:47 61 107/63 08/17/19 07:46 97.7 F 61 16 107/63 97 08/17/19 04:00 97.7 F 60 20 101/61 100 Weight Weight 233 lb 9 oz Most Recent Monitor Data Heart Rate from ECG 64 NIBP 95/68 NIBP BP-Mean 77 Respiration from ECG 24 SpO2 97 I&O: 08/16/19 08/17/19 08/18/19 06:59 06:59 06:59 Intake Total 680 1210 Output Total 1250 Balance -570 1210 Result Diagrams: 08/16/19 04:13 08/16/19 04:13 Hospitalist ROS - Medication Medications: Active Medications Generic Name Dose Route Start Last Admin Trade Name Freq PRN Reason Stop Dose Admin Acetaminophen 650 mg 08/11/19 15:59 08/12/19 23:39 Tylenol PO 650 mg Q4H PRN Administration Headache/Fever/Mild Pain (1-3) Allopurinol 150 mg 08/12/19 09:00 08/17/19 08:46 Zyloprim PO 150 mg QAM OLENA Administration Aspirin 81 mg 08/14/19 09:00 08/17/19 08:47 Ecotrin PO 81 mg DAILY OLENA Administration Atenolol 25 mg 08/12/19 09:00 08/17/19 08:47 Tenormin PO 25 mg QAM OLENA Administration Calcitriol 0.5 mcg 08/12/19 09:00 08/17/19 08:47 Rocaltrol PO 0.5 mcg DAILY OLENA Administration Epoetin Danielito-epbx 7,500 unit 08/12/19 09:30 08/12/19 10:59 Retacrit SC 7,500 unit Q7D OLENA Administration Famotidine 20 mg 08/12/19 21:00 08/16/19 20:44 Pepcid PO 20 mg 2100 OLENA Administration Ferrous Sulfate 325 mg 08/14/19 17:00 08/17/19 08:46 Feosol PO 325 mg BID-WM OLENA Administration Rosuvastatin Calcium 10 mg 08/14/19 21:00 08/16/19 20:45 Crestor PO 10 mg HS OLENA Administration Sodium Bicarbonate 650 mg 08/11/19 21:00 08/17/19 08:47 Bicarbonate, Sodium PO 650 mg BID OLENA Administration Sodium Chloride 10 ml 08/13/19 21:00 08/17/19 08:47 Flush - Normal Saline IVF 10 ml Q12HR OLENA Administration Terazosin HCl 2 mg 08/11/19 21:00 08/16/19 20:45 Hytrin PO 2 mg HS OLENA Administration - Exam Eye: PERRL Heart: RRR, murmur present, II/IV Respiratory: CTAB (+ occasional rhonchi and rales) Gastrointestinal: soft, non-tender, non-distended, normal bowel sounds, no palpable masses, no hepatomegaly Extremities: no cyanosis, no clubbing, no edema Hosp A/P (1) CAD (coronary artery disease) Code(s): I25.10 - ATHSCL HEART DISEASE OF [place] CORONARY ARTERY W/O ANG PCTRS Status: Acute (2) Chest pain Code(s): R07.9 - CHEST PAIN, UNSPECIFIED Status: Acute (3) HTN (hypertension) Code(s): I10 - ESSENTIAL (PRIMARY) HYPERTENSION Status: Acute (4) End stage renal disease on dialysis Code(s): N18.6 - END STAGE RENAL DISEASE; Z99.2 - DEPENDENCE ON RENAL DIALYSIS Status: Acute - Plan * CAD- patient was found to have 3 vessel CAD, and not an ideal surgical candidate due to poor target vessels * Aortic Stenosis- he has critical - await CV surgery recommendations- he may be a candidate for TAVR * ESRD- he has been started on dialysis. He tells me he has been cleared to use the right AV- fistula- * HTN- blood pressure is stable
[2019-08-17] MEDS: Rosuvastatin 10 MG TAB PO SCH (19:59)
[2019-08-17] MEDS: guaiFENesin ER 600 MG TAB PO SCH (19:59)
[2019-08-17] MEDS: Terazosin HCl 1 MG CAP PO SCH (20:00)
[2019-08-17] MEDS: Famotidine 20 MG TAB PO SCH (20:00)
[2019-08-18 06:25] LABS: Anion Gap 17 mmol/L (10-20); BUN (Urea Nitrogen) 64 mg/dL (8.4-25.7); Calc. Creatinine Clearance 12 mL/min (70-130); Calcium 10.4 mg/dL (7.8-10.44); Carbon Dioxide 26 mmol/L (23-31); Chloride 97 mmol/L (98-107); Estimated GFR-MDRD 6; Glucose 93 mg/dL (83-110); Magnesium 2.1 mg/dL (1.6-2.6); Potassium 4.1 mmol/L (3.5-5.1); Sodium 136 mmol/L (136-145)
--- NOTE | 2019-08-18 08:46 | PRG ---
DATE OF SERVICE: 08/18/2019 SUBJECTIVE: Mr. Case is a 73-year-old white male, who was initially admitted for chest pain/shortness of breath. He has a significantly elevated troponin I. He underwent a cardiac cath. The cardiac cath showed diffuse recent occlusion of calcified right coronary LAD and circumflex. He also was found to have severe aortic stenosis, but not critical aortic stenosis. Dr. Rosas has been asked by Dr. Saldana to see if the patient might be an operative candidate. We are following him up for his maintenance hemodialysis. He is currently undergoing hemodialysis and tolerating said treatment. No other complaints today. No chest pain or shortness of breath. In the interim, he had a cuffed hemodialysis catheter placed and an AV fistula. OBJECTIVE: VITAL SIGNS: Blood pressure is 105/64, heart rate 65, respiratory rate 16, temperature 98.2, pulse ox 100%. GENERAL: The patient is awake, alert, comfortable, not in overt distress. SKIN: Adequate turgor. HEENT: Slightly pale conjunctivae. Anicteric sclerae. NECK: No neck mass. No carotid bruits. No JVD. CHEST: No deformities. LUNGS: Clear breath sounds. No wheezing. No crackles. HEART: Normal sinus rhythm, grade 2/6 systolic murmur. No gallops. No rubs. ABDOMEN: Globular. Soft. Nontender. No masses. EXTREMITIES: No edema. MEDICATIONS: Medications of August 18, 2019, were reviewed. LABORATORY DATA: Laboratories of August 16, 2019, white count 6.2, hemoglobin 8.2. August 18, 2019; sodium 136, potassium 4.1, chloride 97, carbon dioxide 26, BUN 64, creatinine 8.41, calcium 10.4, magnesium 2.1, albumin 3.0. ASSESSMENT AND PLAN: 1. End-stage renal disease, stable. We will continue current hemodialysis regimen of 3 times a week. He is tolerating said treatment. Dialysis catheter is functional. 2. Anemia, continuing weekly Epogen. 3. Coronary artery disease, medical management. 4. Aortic stenosis. Continue supportive care. Surgery is evaluating this patient. Agree with current management. Job ID: [id number]
[2019-08-18] MEDS ORDERED: Heparin 10,000 UNITS/ 10 ML VIAL ONE (09:54)
[2019-08-18] MEDS: Calcitriol 0.25 MCG CAP PO SCH (11:23)
[2019-08-18] MEDS: Atenolol 25 MG TAB PO SCH (11:24)
[2019-08-18] MEDS: Aspirin 81 mg Enteric Coated Tablet PO SCH (11:25)
[2019-08-18] MEDS: guaiFENesin ER 600 MG TAB PO SCH (11:26)
[2019-08-18] MEDS: Sodium Bicarbonate Tab 325 MG TAB PO SCH (11:26)
[2019-08-18] MEDS: Allopurinol 300 MG TAB PO SCH (11:26)
[2019-08-18] MEDS: Ferrous Sulfate 325 MG TAB PO SCH (11:32)
--- NOTE | 2019-08-18 14:52 | PDOC.HOSPP ---
- Subjective Encounter Date: 08/18/19 Encounter Time: 14:50 Subjective: Mr. Case was seen today in follow-up of ESRD, and . He does not have any complaints. - Objective Vital Signs & Weight: Vital Signs (12 hours) Temp Pulse Resp BP BP Pulse Ox 08/18/19 11:38 97.8 F 66 12 111/67 98 08/18/19 11:24 66 111/67 08/18/19 11:00 97.6 F 62 16 111/67 99 08/18/19 04:00 98.2 F 65 16 105/64 100 Weight Weight 233 lb 9 oz Most Recent Monitor Data Heart Rate from ECG 64 NIBP 95/68 NIBP BP-Mean 77 Respiration from ECG 24 SpO2 97 I&O: 08/17/19 08/18/19 08/19/19 06:59 06:59 06:59 Intake Total 1210 1210 Balance 1210 1210 Result Diagrams: 08/16/19 04:13 08/18/19 05:56 Hospitalist ROS - Medication Medications: Active Medications Generic Name Dose Route Start Last Admin Trade Name Freq PRN Reason Stop Dose Admin Acetaminophen 650 mg 08/11/19 15:59 08/12/19 23:39 Tylenol PO 650 mg Q4H PRN Administration Headache/Fever/Mild Pain (1-3) Allopurinol 150 mg 08/12/19 09:00 08/18/19 11:26 Zyloprim PO 150 mg QAM OLENA Administration Aspirin 81 mg 08/14/19 09:00 08/18/19 11:25 Ecotrin PO Not Given DAILY [facility] Atenolol 25 mg 08/12/19 09:00 08/18/19 11:24 Tenormin PO 25 mg QAM OLENA Administration Calcitriol 0.5 mcg 08/12/19 09:00 08/18/19 11:23 Rocaltrol PO 0.5 mcg DAILY OLENA Administration Epoetin Danielito-epbx 7,500 unit 08/12/19 09:30 08/12/19 10:59 Retacrit SC 7,500 unit Q7D OLENA Administration Famotidine 20 mg 08/12/19 21:00 08/17/19 20:00 Pepcid PO 20 mg 2100 OLENA Administration Ferrous Sulfate 325 mg 08/14/19 17:00 08/18/19 11:32 Feosol PO 325 mg BID-WM OLENA Administration Guaifenesin 600 mg 08/17/19 21:00 08/18/19 11:26 Mucinex PO 600 mg Q12HR OLENA Administration Rosuvastatin Calcium 10 mg 08/14/19 21:00 08/17/19 19:59 Crestor PO 10 mg HS OLENA Administration Sodium Bicarbonate 650 mg 08/11/19 21:00 08/18/19 11:26 Bicarbonate, Sodium PO 650 mg BID OLENA Administration Sodium Chloride 10 ml 08/13/19 21:00 08/18/19 11:33 Flush - Normal Saline IVF 10 ml Q12HR OLENA Administration Terazosin HCl 2 mg 08/11/19 21:00 08/17/19 20:00 Hytrin PO 2 mg HS OLENA Administration - Exam Eye: PERRL Heart: RRR, murmur present, II/IV Respiratory: CTAB, no wheezes, no rales, no ronchi, normal chest expansion, no tachypnea, normal percussion Gastrointestinal: soft, non-tender, non-distended, normal bowel sounds, no palpable masses, no hepatomegaly Extremities: no cyanosis, no edema Hosp A/P (1) CAD (coronary artery disease) Code(s): I25.10 - ATHSCL HEART DISEASE OF [place] CORONARY ARTERY W/O ANG PCTRS Status: Acute (2) Chest pain Code(s): R07.9 - CHEST PAIN, UNSPECIFIED Status: Acute (3) HTN (hypertension) Code(s): I10 - ESSENTIAL (PRIMARY) HYPERTENSION Status: Acute (4) End stage renal disease on dialysis Code(s): N18.6 - END STAGE RENAL DISEASE; Z99.2 - DEPENDENCE ON RENAL DIALYSIS Status: Acute - Plan * CAD- patient was found to have 3 vessel CAD, and not an ideal surgical candidate due to poor target vessels * Aortic Stenosis-will refer to a Digital Photo Printer locally , who can then assist on a Digital Photo Printer in [place] who can evaluate for TAVR * ESRD- he has been started on dialysis. He tells me he has been cleared to use the right AV- fistula- * HTN- blood pressure is stable
[2019-08-18 15:31] VITALS: BP 108/58; TEMP 97.5
--- NOTE | 2019-08-19 15:55 | DIS ---
DATE OF ADMISSION: 08/11/2019 DATE OF DISCHARGE: 08/18/2019 DISCHARGE DISPOSITION: Home. DISCHARGE DIAGNOSES: 1. Non-ST elevation myocardial infarction. 2. Critical aortic stenosis. 3. End-stage renal disease, on hemo dialysis. 4. Hypertension. 5. Benign prostatic hyperplasia. DISCHARGE MEDICATIONS: Include: 1. Sodium bicarbonate 650 mg p.o. twice daily. 2. Crestor 10 mg at bedtime. 3. Nitrostat 0.4 sublingual p.r.n. 4. Retacrit 7500 units subcu daily. 5. Terazosin 2 mg p.o. at bedtime. 6. Calcitriol 0.5 mcg p.o. daily. 7. Atenolol 25 mg daily. 8. Allopurinol 150 mg p.o. daily. PROCEDURES DONE DURING THE ADMISSION: The patient had a cardiac catheterization demonstrating diffuse three-vessel coronary artery disease, 100% occlusion of the RCA, which was calcified and the patient also had an echocardiogram showing an ejection fraction estimated at 35% to 40%. There was some inferior wall and posterior wall akinesia. There was severe stenosis of the aortic valve with a peak gradient of approximately 36 and a valve area of 1.0 cm2. The patient also had the placement of a right IJ cuffed tunneled hemodialysis catheter. CODE STATUS: Full code. ALLERGIES: NO KNOWN DRUG ALLERGIES. HOSPITAL COURSE: Mr. Case is a pleasant 73-year-old gentleman, who was admitted to the hospital with chest pain and shortness of breath. He was evaluated by Cardiology and found to have three-vessel coronary artery disease by cardiac catheterization. Unfortunately, he did not have good target vessels and therefore the bypass was not a viable option. He was also found to have critical aortic stenosis by echocardiogram and it was recommended that he be evaluated in [place] for possible transcatheter aortic valve replacement. He also was found to have developed end-stage renal disease with worsening of his chronic kidney failure. During his hospital stay, he was initiated on dialysis and once a dialysis chair was arranged, he is being discharged home. He will be following up with Dr. Saldana or one of the other physicians at [facility] and then referred to a mba internship in [place] for possible TAVR and also to follow up with the dialysis as per his dope worker. Job ID: [id number]
== END 2019-08-18 16:53 | disposition home or self-care (01) | DRG 280 ==
LOC: ERS 12:54 → ERHOLD 14:30 → 2NO 21:00 → IMCU/EMU 23:34 → 2SE 08-15 08:24
PROVIDERS: ADMIT Internal Medicine; ATTEND Internal Medicine
PROC: 5A1D70Z Performance of Urinary Filtration, Intermittent, Less than 6 Hours Per Day (ICD-10-PCS; 2019-08-12)
PROC: 4A023N7 Measurement of Cardiac Sampling and Pressure, Left Heart, Percutaneous Approach (ICD-10-PCS; principal; 2019-08-14)
PROC: 06HM33Z Insertion of Infusion Device into Right Femoral Vein, Percutaneous Approach (ICD-10-PCS; 2019-08-14)
PROC: B2111ZZ Fluoroscopy of Multiple Coronary Arteries using Low Osmolar Contrast (ICD-10-PCS; 2019-08-14)
PROC: B543ZZA Ultrasonography of Right Jugular Veins, Guidance (ICD-10-PCS; 2019-08-15)
PROC: 0JH63XZ Insertion of Tunneled Vascular Access Device into Chest Subcutaneous Tissue and Fascia, Percutaneous Approach (ICD-10-PCS; 2019-08-15)
PROC: 02HV33Z Insertion of Infusion Device into Superior Vena Cava, Percutaneous Approach (ICD-10-PCS; 2019-08-15)
PROC: B518ZZA Fluoroscopy of Superior Vena Cava, Guidance (ICD-10-PCS; 2019-08-15)
PROC: B544ZZA Ultrasonography of Left Jugular Veins, Guidance (ICD-10-PCS; 2019-08-15)
PROC: 02HV33Z Insertion of Infusion Device into Superior Vena Cava, Percutaneous Approach (ICD-10-PCS; 2019-08-15)
DX: I21.4 Non-ST elevation (NSTEMI) myocardial infarction (principal); N18.6 End stage renal disease; N17.9 Acute kidney failure, unspecified; N03.9 Chronic nephritic syndrome with unspecified morphologic changes; I45.2 Bifascicular block; I42.9 Cardiomyopathy, unspecified; I50.22 Chronic systolic (congestive) heart failure; I13.2 Hypertensive heart and chronic kidney disease with heart failure and with stage 5 chronic kidney disease, or end stage renal disease; T82.590A Other mechanical complication of surgically created arteriovenous fistula, initial encounter; M31.31 Wegener's granulomatosis with renal involvement; E78.00 Pure hypercholesterolemia, unspecified; N40.0 Benign prostatic hyperplasia without lower urinary tract symptoms; C61 Malignant neoplasm of prostate; D63.1 Anemia in chronic kidney disease; I08.3 Combined rheumatic disorders of mitral, aortic and tricuspid valves; E87.5 Hyperkalemia; M10.9 Gout, unspecified; I27.20 Pulmonary hypertension, unspecified; E66.9 Obesity, unspecified; I25.10 Atherosclerotic heart disease of native coronary artery without angina pectoris; Y83.8 Other surgical procedures as the cause of abnormal reaction of the patient, or of later complication, without mention of misadventure at the time of the procedure; I95.9 Hypotension, unspecified; Z98.52 Vasectomy status; Z79.899 Other long term (current) drug therapy; Z68.35 Body mass index [BMI] 35.0-35.9, adult
CPT/HCPCS: 36415; 71045; 76942; 80048; 80053; 82040; 82553; 83605; 83735; 83880; 84484; 85025; 85730; 86580; 86704; 86706; 86803; 87340; 90935; 93005; 93306; 93458; 93798; 93970; 96361; 96372; 96374; 99152; 99153; C1752; C1769; G0257; G0365; J0171; J1642; J1644; J1650; J2001; J2250; J2405; J2704; J3010; J7070; Q5105; Q9967; S0020

== ENCOUNTER 2019-08-26 07:02 | Day surgery (SDC) | payer MEDICARE ==
[2019-08-25 15:13] VITALS: BMI 35.6
[2019-08-26] MEDS ORDERED: Sodium Bicarbonate 2.5 MEQ/5 ML VIAL ONE (08:21)
[2019-08-26] MEDS ORDERED: Prevnar 13-Val Conj/PF 0.5 ML SYRINGE IM ONE (09:00)
--- NOTE | 2019-08-26 09:46 | SPC ---
EXAM: SPC INTRO CATH DIALY CIRC/AV S RIGHT UPPER EXTREMITY PROVIDED CLINICAL HISTORY: Non maturing right upper extremity arteriovenous dialysis fistula in a patient with end-stage renal d isease requiring hemodialysis. COMPARISON: None TECHNIQUE: The procedure including the risks and complications were explained to the patient, and informed conse nt was obtained. The patient was placed on the angiography table in the supine position. Limited ultrasound of the right upper extremity was performed. An area was marked and then meticulously prepp ed and draped in usual sterile fashion. Utilizing concurrent real time ultrasound guidance, the skin and subcutaneous tissues overlying the venous outflow at the level of the antecubital fossa were infiltrated with buffered 1% lidocaine for local anesthesia. Again utilizing concurrent real-time ultrasound guidance, the more lateral venous outflow was accessed utilizing micropuncture technique, and a 4 [place] introducer sheath was placed. A fistulogram and venogram to the SVC were performed. Manual compression was applied to the venous ou tflow, and the basilic vein outflow was then refluxed. Manual compression was applied to each venous outflow to reflux the arteriovenous anastomosis. Introducer sheath was removed, and hemostasis was achieved with direct pressure. The patient tolerated the procedure well and without immediate complication. Dry sterile dressing was placed at puncture site. Patient was transported to radiology nurses holding area for further monitoring prior to discharge. Fluoroscopy: Time-1 minute Dose-25,170 mGy centimeter squared FINDINGS: Patent right upper extremity arteriovenous dialysis fistula with patent venous outflow via what appears to be the left cephalic and basilic vein outflows. The arteriovenous anastomosis is patent. Venous outflow is patent to the SVC. A tunneled right internal jugular vein hemodialysis cath eter is noted in place. IMPRESSION: Patent right upper extremity arteriovenous dialysis fistula with patent venous outflow as described a peggy. There are codominant venous outflows present.
[2019-08-26 11:39] VITALS: BP 90/53; TEMP 98.9
[2019-08-26] MEDS ORDERED: Iopamidol 300 61% 100 ML VIAL FS ONE (13:00)
[2019-08-26] MEDS ORDERED: Heparin 1,000 UNITS/ML VIAL ONE (15:27)
== END 2019-08-26 09:15 | disposition home or self-care (01) ==
LOC: SPEC 07:02
PROVIDERS: ATTEND Specialist
PROC: B51W1ZZ Fluoroscopy of Dialysis Shunt/Fistula using Low Osmolar Contrast (ICD-10-PCS; principal; 2019-08-26)
DX: T82.510A Breakdown (mechanical) of surgically created arteriovenous fistula, initial encounter (principal); I12.0 Hypertensive chronic kidney disease with stage 5 chronic kidney disease or end stage renal disease; N18.6 End stage renal disease; I25.2 Old myocardial infarction; I25.10 Atherosclerotic heart disease of native coronary artery without angina pectoris; I35.0 Nonrheumatic aortic (valve) stenosis; M10.9 Gout, unspecified; Z99.2 Dependence on renal dialysis; Z79.82 Long term (current) use of aspirin; Z79.899 Other long term (current) drug therapy
CPT/HCPCS: 36901; J1644; Q9967

== ENCOUNTER 2019-10-15 22:51 | Inpatient (IN) | payer MEDICARE, OTHER ==
[2019-10-16 01:15] LABS: Troponin I 0.494 ng/mL (< 0.028)
--- NOTE | 2019-10-16 02:01 | HP ---
PRIMARY CARE PHYSICIAN: Dr. Astorga. CHIEF COMPLAINT: Shortness of breath and orthopnea. HISTORY OF PRESENT ILLNESS: This is a 74-year-old white male, recently in the hospital a couple of months ago for a [id number] myocardial infarction. At that time, he was diagnosed with critical aortic stenosis, was also started on dialysis for end-stage renal disease. The patient since discharge has been having progressively worsening symptoms. Over the past month, he has had increased shortness of breath, increased cough, productive of foamy sputum, occasionally pink and significantly worsened orthopnea. Eventually, he got tired of not being able to sleep due to his orthopnea and worsening shortness of breath, so he came into the emergency room in [place]. There, he was noted to have troponin elevated at 0.5, was actually significantly down from last hospitalization when it was 28 before discharge. His brain natriuretic peptide was found to be massively increased, it was initially 3000 during his last hospitalization, now up to 10,000. The patient was given Rocephin, azithromycin, and Lovenox at the [place] [facility] and transferred here. The patient reports that he did have dialysis earlier today and that they took off multiple liters of fluid. He has been using a 6 ounce cup at home and drinking less than 4 of those per day and has been going to dialysis regularly. REVIEW OF SYSTEMS: CONSTITUTIONAL: No fevers. No chills. EYES: No double vision or blurred vision. ENT: He does have some nasal congestion and drainage. No sore throat. CARDIOVASCULAR: Noted chest pain. No palpitations or racing heart. PULMONARY: He has coughing as per HPI, productive of foamy, occasionally pink-tinged sputum. He does have some chest tightness and also positive for orthopnea that has been significantly worsened recently. GASTROINTESTINAL: No abdominal pain. No nausea or vomiting. No diarrhea or constipation. GENITOURINARY: The patient produces virtually no urine now. MUSCULOSKELETAL: No muscle aches or joint pain. SKIN: No rashes or others lesions he has noted. NEUROLOGICAL: No numbness, tingling, or focal weakness. He does have generalized weakness and has trouble walking now and feels like his legs because of it. PAST MEDICAL HISTORY: 1. Hypertension. 2. Hyperlipidemia. 3. Coronary artery disease, 3-vessel, inoperable. 4. Critical aortic stenosis. 5. Chronic renal failure, on dialysis. 6. Prostate cancer status post resection. PAST SURGICAL HISTORY: 1. Eye surgery. 2. Back surgery. 3. Prostate resection. 4. Vasectomy. 5. Right internal jugular hemodialysis catheter placement. 6. Right arm AV fistula placement. FAMILY HISTORY: Positive for hypertension. SOCIAL HISTORY: The patient never smoked. No alcohol or illicit drug use. He lives with his who is his medical power of district attorney, her name is Kelley Case. The patient is currently a full code. He states that he tends to which he can make himself do not attempt resuscitation, but he does not think his would be happy with that. He is open to talk with Palliative Care about this. The patient is pending he would appreciate kitchen assistant services while in the hospital. ALLERGIES: NO KNOWN DRUG ALLERGIES. CURRENT MEDICATIONS: 1. Sodium bicarbonate 650 mg 3 times a day. 2. Terazosin 2 mg at bedtime. 3. Allopurinol 150 mg daily. 4. Calcitriol 0.5 mcg daily. 5. Atenolol 25 mg daily. 6. Ferrous sulfate 325 mg once a day each morning. 7. Aspirin 81 mg daily. PHYSICAL EXAMINATION: VITAL SIGNS: Blood pressure 135/104, pulse 101, respirations initially 33 on presentation in the ER here. On my exam, he is breathing about 22 times per minute with no significant increased work of breathing. O2 saturation 99% on room air, temperature 98.1. GENERAL: This is a well-developed obese white male, in no acute distress. HEENT: Pupils are equal, round, and reactive to light. Oropharynx clear without lesions, erythema, or exudate. NECK: Supple. No lymphadenopathy. No thyroid nodules or enlargement. No JVD. HEART: Regular rate and rhythm. I do not appreciate any significant murmurs. LUNGS: Clear to auscultation bilaterally. No wheezes, crackles, or rhonchi. ABDOMEN: Soft, obese, nontender to palpation. Normoactive bowel sounds. No hepatosplenomegaly or other masses. EXTREMITIES: No clubbing or cyanosis. He does have about 1+ pitting edema to bilateral lower extremities. SKIN: No rashes or others lesions noted. NEUROLOGICAL: Intact strength and sensation in all extremities. No facial droop. PSYCHIATRIC: Alert, oriented x3. Normal mood and affect. LABORATORY DATA: White blood cell count 8.1, hemoglobin 9.8, hematocrit 31.3, platelet count 104. Complete metabolic panel is notable for potassium of 3.1, chloride of 96, creatinine of 3.78, total bilirubin of 1.9, ALT of 69 and lipase of 103, the rest is normal. Lactic acid was elevated initially at 2.4; however, he did not have fluids given due to the fact that he appears to be volume overloaded and has some evidence of congestive failure and early pulmonary edema on his chest x-ray. Troponin was 0.521, which is actually down from his previous NSTEMI. Brain natriuretic peptide is elevated at 10,000 and TSH was normal. IMAGING STUDIES: Chest x-ray; I did review the chest x-ray done in the emergency room along with the radiologist's report. It does show some evidence of congestive failure with increased pulmonary vascular markings and some possible early pulmonary edema. EKG done in the [place] [facility] does show first-degree AV block with mild tachycardia and frequent premature ventricular complexes with some possible lateral ischemia and also with a right bundle branch block and left anterior fascicular block with left atrial dilation as well. ASSESSMENT AND PLAN: 1. Acute on chronic congestive heart failure, both systolic and diastolic mixed with a recent EF of 35% to 40%. We will restrict the patient's fluids and continue having fluid pull off the dialysis. Do need to be careful of over-diuresis with his severe aortic stenosis, but at this time, he does appear to be volume up. We will consult Cardiology, Dr. Saldana who has seen the patient before. We will need to avoid medications to strictly decrease preload as this could significantly drop the patient's cardiac output. 2. Apl-RU-fuoydfbqu myocardial infarction. This was likely left over from his previous hospitalization. His troponin actually has trended down significantly since he was last hospitalized. No evidence for an acute myocardial infarction at this time. 3. Critical aortic stenosis. The patient was supposed to be evaluated and hopefully get the valve replacement; however, this had to be put on hold due to his current COVID-19 outbreak. Though in his case, could likely be considered an emergency procedure given how severe his disease has become. 4. End-stage renal disease, on dialysis. We will consult Dr. Bird for further dialysis and continue volume removal. 5. Hypertension. We will resume the patient's blood pressure medications. He might tolerate a slightly increased dose of atenolol, though again, we need to be careful with his severe aortic stenosis. 6. Deep venous thrombosis prophylaxis. We will put the patient on sequential compression devices while in bed. We will hold off on any further Lovenox or heparin due to the patient's low platelet count and his end-stage renal disease. 7. Increased cough and shortness of breath, appears to be secondary to his congestive heart failure. The patient was given Rocephin and azithromycin in the outside emergency room; however, I see no evidence of infection at this time. The patient did have COVID test sent off. We will watch for the final results on that, though he does not appear to have an infection at this time. No fevers. No pneumonia on his chest x-ray and he has some plenty of reasons for his current symptoms. No need for COVID isolation at this time. 8. Gastrointestinal prophylaxis. Put the patient on Pepcid twice a day. 9. Code status. Currently, the patient is a full code. I will have Palliative Care talk to him about this further as he seemed like he actually wanted to be do not attempt resuscitation, though he is concerned about how his will feel about that. His would be his medical decision maker should he be incapacitated. Job ID: [id number]
[2019-10-16 02:20] VITALS: BMI 32.1
[2019-10-16] MEDS ORDERED: Guaifenesin DM 100-10/5 ML UDCUP PO PRN (02:24)
[2019-10-16] MEDS ORDERED: Acetaminophen 325 MG TAB PO PRN (02:24)
[2019-10-16] MEDS ORDERED: Ondansetron PF 4 MG/2 ML Vial IVP PRN (02:24)
[2019-10-16] MEDS ORDERED: Ondansetron ODT 4 MG TAB PO PRN (02:24)
[2019-10-16] MEDS ORDERED: Nitroglycerin 0.4 MG TAB (25 Tab Bottle) SL PRN (02:24)
[2019-10-16] MEDS ORDERED: Senokot S 8.6-50 MG TAB PO PRN (02:24)
[2019-10-16] MEDS ORDERED: Acetaminophen 650 MG Suppository PR PRN (02:24)
[2019-10-16 03:33] LABS: #Lymphocytes 1.8 thou/uL (1.20-3.40); #Monocytes 0.4 thou/uL (0.11-0.59); #Neutrophils 4.2 thou/uL (1.40-6.50); %Basophils 0.1 % (0.0-1.0); %Eosinophils 0.5 % (0.0-10.0); %Lymphocytes 28.3 % (21.0-51.0); %Monocytes 6.7 % (0.0-10.0); %Neutrophils 64.5 % (42.0-75.0); Hemoglobin 9.7 g/dL (14.0-18.0); Mean Corpuscular HGB CONC 31.7 g/dL (32.0-36.0); Mean Platelet Volume 8.5 fL (7.4-10.4); Platelet Count 101 thou/uL (130-400); RBC Distribution Width 17.2 % (11.5-14.5); Red Blood Cell (RBC) Count 3.03 mill/uL (4.70-6.10); White Blood Cell (WBC) Count 6.5 thou/uL (4.8-10.8)
[2019-10-16 03:52] LABS: Anion Gap 18 mmol/L (10-20); BUN (Urea Nitrogen) 29 mg/dL (8.4-25.7); Calc. Creatinine Clearance 17 mL/min (70-130); Calcium 9.9 mg/dL (7.8-10.44); Carbon Dioxide 29 mmol/L (23-31); Chloride 96 mmol/L (98-107); Estimated GFR-MDRD 11; Glucose 99 mg/dL (83-110); Potassium 3.7 mmol/L (3.5-5.1); Sodium 139 mmol/L (136-145)
[2019-10-16 03:59] LABS: Critical Call Chem Troponin I RESULT DECREASING; Troponin I 0.491 ng/mL (< 0.028)
[2019-10-16] MEDS: Calcitriol 0.25 MCG CAP PO SCH (08:23)
[2019-10-16] MEDS: Aspirin 81 mg Enteric Coated Tablet PO SCH (08:23)
[2019-10-16] MEDS: Sodium Bicarbonate Tab 325 MG TAB PO SCH ×3 (08:23→20:40)
[2019-10-16] MEDS: Atenolol 25 MG TAB PO SCH (08:24)
[2019-10-16] MEDS: Allopurinol 300 MG TAB PO SCH (08:24)
[2019-10-16] MEDS: Famotidine 20 MG TAB PO SCH (08:25)
[2019-10-16] MEDS: Ferrous Sulfate 325 MG TAB PO SCH (08:25)
[2019-10-16] MEDS ORDERED: EPOETIN ALFA-EPBX (ESRD) 4,000 UNIT/ML VIAL SC SCH (12:00)
--- NOTE | 2019-10-16 13:35 | CON ---
DATE OF CONSULTATION: 10/16/2019 HISTORY OF PRESENT ILLNESS: Mr. Case is a 74-year-old white male, who was admitted for shortness of breath/orthopnea. He was found to be in CHF. However, due to the persistent cough, he is being ruled out for COVID infection. We are now being consulted for management of his ESRD. Please note, the patient is on maintenance hemodialysis 3 times a week. His BNP was also checked and was noted to be 10,000. This morning, his breathing is a little better. He did receive dialysis yesterday. REVIEW OF SYSTEMS: Positive for chronic cough x4 weeks. No fever or chills. Positive for shortness of breath. No diarrhea or constipation. No productive cough. No gross hematuria. No dysuria. No urinary frequency. No abdominal pain. Appetite and energy level are fair. No hematochezia. No melena. MEDICATIONS: The patient is currently on; 1. Allopurinol 150 mg q.a.m. 2. Ecotrin 81 mg daily. 3. Atenolol 25 mg q.a.m. 4. Calcitriol 0.5 mcg q.a.m. 5. Famotidine 20 mg daily. 6. Ferrous sulfate 325 mg daily. 7. Crestor 10 mg at bedtime. 8. Terazosin 2 mg at bedtime. PAST MEDICAL HISTORY: 1. ESRD from , on maintenance hemodialysis on Sunday, Sunday, and Sunday. 2. Status post CHF. 3. Coronary artery disease, status post PA. 4. Prostate cancer, in remission. 5. BPH. 6. Gout. 7. Aortic stenosis. PAST SURGICAL HISTORY: 1. Status post renal biopsy. 2. Status post prostate biopsy. 3. Status post prostatectomy. 4. Status post vasectomy. 5. Status post back surgery. 6. Status post left eye surgery. 7. Status post cuffed hemodialysis catheter placement. 8. Status post AV fistula placement. SOCIAL HISTORY: The patient is a nonsmoker. He is . He lives in [place]. He takes no alcohol. 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 No IV drug abuse. Status post blood transfusion. He is currently medically disabled. He has 2 children. FAMILY HISTORY: No family history of ESRD. ALLERGIES: NONE. TRAUMA: None. IMMUNIZATION: Up-to-date. HOSPITALIZATIONS: Please see past medical history. PHYSICAL EXAMINATION: VITAL SIGNS: Blood pressure 120/82, heart rate 96, respiratory rate 18, O2 saturation 100% on room air, temperature 97.3. GENERAL: The patient is awake, alert, comfortable, not in overt distress. SKIN: Adequate turgor. HEENT: He has slightly pale conjunctivae. Anicteric sclerae. No neck mass. No carotid bruits. No JVD. CHEST: No deformities. LUNGS: Decreased breath sounds. HEART: Normal sinus rhythm with grade 2/6 systolic murmur. No gallops. No rubs. ABDOMEN: Globular, soft, nontender. No masses. EXTREMITIES: Trace edema. LABORATORY DATA: Laboratories on October 16, 2019; white count 6.5, hemoglobin 9.7. Sodium 139, potassium 3.7, chloride 96, carbon dioxide 29, BUN 29, creatinine 5.26, GFR 11 mL/minute, calcium 9.9. BNP is 10,234. Troponin-I 0.491. IMAGING DATA: On October 15, 2019; chest x-ray shows CHF. ASSESSMENT AND PLAN: 1. End-stage renal disease, stable. We will continue current hemodialysis regimen on Sunday, Sunday, and Sunday. Fluid removal only as tolerated by the patient. 2. Congestive heart failure, the patient has known history of aortic stenosis, critical. Cardiology is following. He is being considered for a possible TAVR. 3. Anemia. Start Epogen 7500 units subcu every week. Review of the last Kt/V suggests the patient is adequately dialyzed with the current dialysis regimen. Please note, the patient is also being ruled out for COVID. Job ID: [id number]
[2019-10-16 13:47] LABS: HBSAg Index 0.37 S/CO (0-0.99); Hep B Surf Ag Non-Reactive S/CO (NonReactive)
--- NOTE | 2019-10-16 17:42 | CON ---
DATE OF CONSULTATION: 10/16/2019 REASON FOR CONSULTATION: Congestive heart failure. HISTORY OF PRESENT ILLNESS: Mr. Case is a very pleasant 74-year-old man. The patient has end-stage renal disease, which recently reached that stage; also severe coronary artery disease and aortic stenosis. The patient was admitted to the hospital with difficulty breathing. Chest x-ray, symptoms compatible with congestive heart failure. As a precaution in view of the current status, the COVID virus that he has been placed in a unit to isolate him until the testing come back. There is no history of fever. PAST HISTORY: Outlined above. MEDICATIONS: 1. Terazosin. 2. Iron. 3. Atenolol 25 mg a day. 4. I believe he is also taking aspirin. 5. Rosuvastatin 10 mg a day. The patient is on hemodialysis 3 days a week. He got dialyzed the morning of his episode of difficulty breathing. ALLERGIES: NONE KNOWN. SOCIAL HISTORY: He has a supportive family. REVIEW OF SYSTEMS: CONSTITUTIONAL: No significant weakness or chest pain. No fever. CARDIAC: No chest pain. GASTROINTESTINAL: No nausea, vomiting, or diarrhea. PULMONARY: Positive for shortness of breath. No cough. SKIN: No rashes. PHYSICAL EXAMINATION: Physical examination was not done by me as he is a rule out COVID patient, therefore, attention being made to limit contact from these patients per current recommendations. On the examination by Dr. Bueno; VITAL SIGNS: Blood pressure 135/104 and pulse 101. GENERAL: Well developed, well nourished, mildly obese gentleman. LUNGS: Clear. CARDIAC: Normal S1. Normal S2. There is no murmur, rub, or gallop heard by Dr. Bueno. ABDOMEN: Soft and nontender. EXTREMITIES: No clubbing or cyanosis. There is no edema. PERTINENT LABORATORY DATA: The troponin level was 0.49. Creatinine 5.26, hemoglobin is 9.7. Troponin level 0.494. EKG showed a bifascicular block as before. The recent cardiac catheterization showed a recent occluded calcified right coronary artery, diffusely diseased circumflex, not bypassable; LAD, diagonal, which were diffusely diseased, but will potentially bypass targets, but very small vessels with distal disease. The patient saw Dr. Deejay Lancaster at [facility]. They were making considerations to see whether he could potentially be a candidate for transcutaneous valve. COVID test is pending. ASSESSMENT: 1. Severe aortic stenosis. Did not have a high gradient on echocardiogram, but had depressed left ventricular function. The echocardiogram showed ejection fraction of 35%. The inferior wall and posterior wall were akinetic. Valve area is calculated at 1 cm. Peak gradient 36 mmHg and mean gradient 20, but likely had a worse aortic valve area than that with low cardiac output. 2. Diffusely diseased coronary artery disease. PLAN: 1. Awaiting further rule out COVID. If it is negative, repeat the echo that was done 2 months ago to see what his left ventricular function looks like. 2. Again revisit whether he could potentially be a candidate for surgery. 3. Also try to call Dr. Deejay Lancaster about whether transcutaneous valve could be considered. Job ID: [id number]
[2019-10-16] MEDS: Terazosin HCl 1 MG CAP PO SCH (20:41)
[2019-10-16] MEDS: Rosuvastatin 10 MG TAB PO SCH (20:41)
[2019-10-17] MEDS: Sodium Bicarbonate Tab 325 MG TAB PO SCH (09:16)
[2019-10-17] MEDS: Aspirin 81 mg Enteric Coated Tablet PO SCH (09:17)
[2019-10-17] MEDS: Famotidine 20 MG TAB PO SCH (09:17)
[2019-10-17] MEDS: Atenolol 25 MG TAB PO SCH (09:17)
[2019-10-17] MEDS: Allopurinol 300 MG TAB PO SCH (09:18)
[2019-10-17] MEDS: Ferrous Sulfate 325 MG TAB PO SCH (09:18)
[2019-10-17] MEDS: Calcitriol 0.25 MCG CAP PO SCH (09:18)
--- NOTE | 2019-10-17 10:32 | PRG ---
DATE OF SERVICE: 10/17/2019 Due to the coronavirus pandemic, this note is through phone interview with the patient as well as reviewing the chart. SUBJECTIVE: Mr. Case states he is doing better, feels better. OBJECTIVE: VITAL SIGNS: Blood pressure 109/56, pulse 65 and regular on the monitor. Exam was not done as outlined above. The COVID test is still pending. ASSESSMENT: 1. Congestive heart failure due to systolic dysfunction as well as severe aortic stenosis. 2. Severe coronary artery disease, which is a very poor operative candidate. 3. End-stage renal disease, on dialysis. PLAN: I discussed with Dr. Deejay Lancaster about the patient's situation. Dr. Lancaster says currently the TAVR program is not proceeding due to the COVID crisis, but he hopes that it would be clear to proceed in November in Mr. Case is being strongly considered as a candidate. We would recommend continuing the current medical regimen, including aspirin, atenolol, and rosuvastatin. I would recommend stopping the sodium bicarbonate in view of the heart failure. Dr. Muñoz will be available this weekend if needed. Otherwise, the patient could be released when stable and he will be followed by Dr. Lancaster. I did recommend the patient if he has another episode between now and then, that he requested to be taken to the [facility] in [place] where he could be observed and be more engaged in the system where he would hopes to get his transcutaneous valve. Dr. Lancaster has graciously seen the patient in his office and even though the patient is at high risk, he strongly considering him for this procedure. Job ID: [id number]
--- NOTE | 2019-10-17 13:20 | EKG ---
Test Reason : Blood Pressure : / mmHG Vent. Rate : 101 BPM Atrial Rate : 101 BPM P-R Int : 200 ms QRS Dur : 156 ms QT Int : 394 ms P-R-T Axes : 074 -60 118 degrees QTc Int : 510 ms Sinus tachycardia with Premature atrial complexes Left axis deviation Right bundle branch block Inferior infarct , age undetermined T wave abnormality, consider lateral ischemia Abnormal ECG Confirmed by MAYELA GRAVES ([id number]), newspaper editor managing PASTORA COLES ([id number]) on 10/17/2019 1:19:48 PM Referred By: Confirmed By:MAYELA Palomo
[2019-10-17] MEDS ORDERED: Heparin 10,000 UNITS/ 10 ML VIAL ONE (13:21)
--- NOTE | 2019-10-17 19:12 | PDOC.HOSPP ---
- Subjective Encounter Date: 10/17/19 Encounter Time: 10:15 Subjective: pt up in bed getting dialysis. - Objective Vital Signs & Weight: Vital Signs (12 hours) Temp Pulse Resp BP BP Pulse Ox 10/17/19 16:07 69 16 112/54 L 98 10/17/19 15:38 96.0 F L 70 16 136/52 L 88 L 10/17/19 07:40 95 10/17/19 07:32 96.2 F L 65 16 109/56 L 97 Weight Weight 210 lb 14.4 oz I&O: 10/16/19 10/17/19 10/18/19 06:59 06:59 06:59 Intake Total 150 1200 Output Total 200 2400 Balance 150 1000 -2400 Result Diagrams: 10/16/19 03:25 10/16/19 03:25 Hospitalist ROS - Review of Systems Cardiovascular: denies: chest pain, palpitations, orthopnea, paroxysmal noc. dyspnea, edema, light headedness, other Gastrointestinal: denies: nausea, vomiting, abdominal pain, diarrhea, constipation, melena, hematochezia, other Genitourinary: denies: dysuria, frequency, incontinence, hematuria, retention, other - Medication Medications: Active Medications Generic Name Dose Route Start Last Admin Trade Name Freq PRN Reason Stop Dose Admin Allopurinol 150 mg 10/16/19 09:00 10/17/19 09:18 Zyloprim PO 150 mg QAM OLENA Administration Aspirin 81 mg 10/16/19 09:00 10/17/19 09:17 Ecotrin PO 81 mg DAILY OLENA Administration Atenolol 25 mg 10/16/19 09:00 10/17/19 09:17 Tenormin PO Not Given QAM OLENA Calcitriol 0.5 mcg 10/16/19 09:00 10/17/19 09:18 Rocaltrol PO 0.5 mcg QAM OLENA Administration Epoetin Danielito-epbx 7,500 unit 10/16/19 12:00 10/16/19 12:33 Retacrit SC 7,500 unit Q7D OLENA Administration Famotidine 20 mg 10/16/19 09:00 10/17/19 09:17 Pepcid PO Not Given DAILY [facility] Ferrous Sulfate 325 mg 10/16/19 09:00 10/17/19 09:18 Feosol PO 325 mg DAILY OLENA Administration Rosuvastatin Calcium 10 mg 10/16/19 21:00 10/16/19 20:41 Crestor PO 10 mg HS OLENA Administration Terazosin HCl 2 mg 10/16/19 21:00 10/16/19 20:41 Hytrin PO 2 mg HS OLENA Administration - Exam Neck: negative: supple, symmetric, no JVD, no thyromegaly, no lymphadenopathy, no carotid bruit, JVD Heart: negative: RRR, no murmur, no gallops, no rubs, normal peripheral pulses, irregular, diminshed peripheral pulses, murmur present, II/IV, III/IV Respiratory - other findings: mild crackles to bases Gastrointestinal: negative: soft, non-tender, non-distended, normal bowel sounds , no palpable masses, no hepatomegaly, no splenomegaly, no bruit, no guarding, no rigidity, tender to palpation, distended, diminished bowl sounds, voluntary guarding Extremities: 2+ LE edema Hosp A/P (1) Aortic stenosis Code(s): I35.0 - NONRHEUMATIC AORTIC (VALVE) STENOSIS Status: Acute (2) CAD (coronary artery disease) Code(s): I25.10 - ATHSCL HEART DISEASE OF [place] CORONARY ARTERY W/O ANG PCTRS Status: Acute (3) End stage renal disease on dialysis Code(s): N18.6 - END STAGE RENAL DISEASE; Z99.2 - DEPENDENCE ON RENAL DIALYSIS Status: Acute (4) HTN (hypertension) Code(s): I10 - ESSENTIAL (PRIMARY) HYPERTENSION Status: Acute (5) Systolic heart failure Code(s): I50.20 - UNSPECIFIED SYSTOLIC (CONGESTIVE) HEART FAILURE Status: Acute Qualifiers: Heart failure chronicity: acute on chronic Qualified Code(s): I50.23 - Acute on chronic systolic (congestive) heart failure (6) Elevated troponin Code(s): R79.89 - OTHER SPECIFIED ABNORMAL FINDINGS OF BLOOD CHEMISTRY Status : Acute - Plan pt undergoing dialysis. per cardio if he has a reoccurrence he will need to go to [facility] for T[facility]R. covid rule out pending. however unlikely. elevated tops but downward trend from his prior numbers.
[2019-10-17] MEDS: Rosuvastatin 10 MG TAB PO SCH (20:38)
[2019-10-17] MEDS: Terazosin HCl 1 MG CAP PO SCH (20:39)
[2019-10-18] MEDS: Famotidine 20 MG TAB PO SCH (08:49)
[2019-10-18] MEDS: Aspirin 81 mg Enteric Coated Tablet PO SCH (08:49)
[2019-10-18] MEDS: Calcitriol 0.25 MCG CAP PO SCH (08:49)
[2019-10-18] MEDS: Allopurinol 300 MG TAB PO SCH (08:49)
[2019-10-18] MEDS: Ferrous Sulfate 325 MG TAB PO SCH (08:49)
[2019-10-18] MEDS: Atenolol 25 MG TAB PO SCH (08:50)
--- NOTE | 2019-10-18 11:36 | PRG ---
DATE OF SERVICE: 10/18/2019 SERVICE: Renal Medicine. SUBJECTIVE: Mr. Case is a 74-year-old white male, who was admitted for shortness of breath. He was found to be in pulmonary edema. He also ruled out for COVID-19. This morning, he is feeling better. His shortness of breath has much improved. The patient also has history of a tight aortic stenosis. He has been evaluated by Cardiology. The feeling is stable enough to be managed medically. If he has a recurrence of this episode, the patient has been instructed to report to [facility] to be seen by Dr. Lancaster who may need to do a TAVR at that time. The patient voices no other complaints. OBJECTIVE: VITAL SIGNS: Blood pressure 99/69, heart rate 68, respiratory rate 16, O2 saturation 98%, temperature 97.5. GENERAL: Noted to be awake, alert, sitting comfortable, not in distress. SKIN: Adequate turgor. HEENT: Pinkish conjunctivae. Anicteric sclerae. NECK: No neck mass. No carotid bruits. No JVD. CHEST: No deformities. LUNGS: Clear breath sounds. HEART: Normal sinus rhythm. No murmur. No gallops. No rubs. ABDOMEN: Globular, soft, nontender. No masses. EXTREMITIES: No edema. No deformities. MEDICATIONS: Of October 18, 2019, were reviewed. LABORATORY DATA: Of October 16, 2019; white count 6.5, hemoglobin 9.7. Sodium 139, potassium 3.7, chloride 96, carbon dioxide 29, BUN 29, creatinine 5.26, glucose 99, calcium 9.9. ASSESSMENT AND PLAN: 1. Shortness of breath secondary to pulmonary edema, clinically much improved. Fluid removal with dialysis. 2. End-stage renal disease, tolerating current hemodialysis regimen. As previously mentioned, fluid removal only as tolerated. 3. Anemia. We will continue weekly Epogen. 4. Aortic stenosis-patient to follow up with Dr. Bandar Lancaster of [facility] for possible elective transcatheter aortic valve replacement. 5. Agree with current management. Job ID: [id number]
[2019-10-18 12:00] VITALS: BP 109/65; TEMP 97
--- NOTE | 2019-10-20 06:31 | DIS ---
DATE OF ADMISSION: 10/16/2019 DATE OF DISCHARGE: 10/18/2019 HOSPITAL COURSE: Mr. Case is a 74-year-old male with medical history of recent NSTEMI with critical aortic stenosis, end-stage renal disease, recently started on dialysis, who presented with progressively worsening shortness of breath, productive increased cough productive of foamy sputum. He was diagnosed with acute on chronic congestive heart failure, systolic and diastolic. 1. Decompensated heart failure, both systolic and diastolic mixed. a. The patient has an ejection fraction of 35% in the context of severe aortic stenosis. b. Cardiology was consulted and Dr. Saldana discussed the case with Dr. Deejay Lancaster from [facility] in regard to transcutaneous valve repair. c. Per Dr. Lancaster, the TAVR program has been held due to the COVID crisis. d. Mr. Case was symptomatically managed with dialysis and significantly improved over his inpatient stay. e. Prior to discharge, the patient was educated regarding his options and was requested to present to [facility] in case his symptoms recur in order to be evaluated for an emergent TAVR. 2. COVID rule out. a. The patient presented with shortness of breath and cough. However, he did not have a fever. b. The patient was ruled out for COVID. c. On the day of discharge, the patient was hemodynamically stable and had no complaints. PHYSICAL EXAMINATION: VITAL SIGNS: Blood pressure was 99/69, heart rate 68, respiratory rate 16, oxygen saturation 98% on room air. Temperature was 97.5. GENERAL: Awake, alert, and oriented x3. Sitting comfortably on the bed, in no apparent distress. HEART: Regular rate and rhythm. No murmurs, gallops, or rubs. LUNGS: Clear to auscultation bilaterally. No wheezing, rales, or rhonchi. ABDOMEN: Soft, nontender, nondistended. Normal bowel sounds. EXTREMITIES: No edema. DISCHARGE MEDICATIONS: 1. Discontinued medications. a. Terazosin. 2. Continued medications. a. Atenolol 25 mg q.a.m. b. Allopurinol. c. Epoetin 7500 units subcu every 7 days. d. Ferrous sulfate 325 mg b.i.d. daily. e. Nitroglycerin 0.4 mg sublingual q.5 p.r.n. chest pain. f. Rosuvastatin 10 mg at bedtime. 3. New medications, no new medications. The patient is not on an ACEI as per cardiology recommendations likely due to intolerance. Job ID: [id number] [facility]
--- NOTE | 2019-10-21 05:52 | PQF ---
JORDIN NAVA JR, ADI [id number] [facility]-233 [id number] CLINICAL DOCUMENTATION CLARIFICATION FORM: POST DISCHARGE Addendum to original discharge summary date: ____ Late entry note date: __ DATE:10/21/2019 ATTN: Christopher Carey Please exercise your independent, professional judgment in responding to the clarification form. Clinical indicators are provided on the bottom of this form for your review Please check appropriate box(s): [ ] NSTEMI (VT type I) [ ] NSTEMI due to Demand Ischemia (AMI Type II) [ x ] Old VT, Onset Greater than 4 weeks of admission [ ] Other diagnosis [ ] Unable to determine CLINICAL INDICATORS - SIGNS / SYMPTOMS / LABS Laboratory 10/15 Troponin I 0.949; 0.491 Vital signs 10/15 BP 135/104, Pulse 101, Resp 33 ED notes p7 Abnormal EKG with no acute signs of ischemia H&P p1 10/15 Dr Bueno hospital couple of months for a non-ST elevation VT H&P p1 10/15 Dr Bueno She came to ED of [place], with SOB and noted to have elevated troponin, BNP of 3000, massively increased H&P p4 10/15 Dr Bueno NSTEMI this likely left over from hos previous hospitalization H&P p4 10/15 Dr Bueno No evidence of an acute VT this time PN PN p4 10/16 Elevated troponin but downward trend from his prior number Consult p1 10/15 status post VT RISKS: H&P p1 10/15 74-year-old male H&P p2 10/15 HTN H&P p2 10/15 HLD H&P p2 10/15 CAD H&P p2 10/15 Aortic Stenosis H&P p2 10/15 ESRD on dialysis H&P p3 10/15 Acute on Chronic CHF TREATMENTS: SEP 09 Aspirin 81mg oral SEP 09 Crestor 10mg oral SEP 09 Nitroglycerin 0.4mg SL SEP 09 Allopurinol 150mg Oral Cardiology consult 10/15 Sanam Arboleda EKG 10/15 (This form is maintained as a part of the permanent medical record) 2014 [email or web address] All Rights Reserved [email or web address]
== END 2019-10-18 15:10 | disposition home or self-care (01) | DRG 291 ==
LOC: ERS 22:51 → 2SW 10-16 00:04
PROVIDERS: ADMIT Emergency Medicine; ATTEND Emergency Medicine
PROC: 5A1D70Z Performance of Urinary Filtration, Intermittent, Less than 6 Hours Per Day (ICD-10-PCS; principal; 2019-10-18)
DX: I13.2 Hypertensive heart and chronic kidney disease with heart failure and with stage 5 chronic kidney disease, or end stage renal disease (principal); I50.43 Acute on chronic combined systolic (congestive) and diastolic (congestive) heart failure; N18.6 End stage renal disease; I35.0 Nonrheumatic aortic (valve) stenosis; I25.10 Atherosclerotic heart disease of native coronary artery without angina pectoris; E78.5 Hyperlipidemia, unspecified; N40.0 Benign prostatic hyperplasia without lower urinary tract symptoms; M10.9 Gout, unspecified; D63.1 Anemia in chronic kidney disease; R79.89 Other specified abnormal findings of blood chemistry; I25.2 Old myocardial infarction; Z99.2 Dependence on renal dialysis; Z85.46 Personal history of malignant neoplasm of prostate; Z90.79 Acquired absence of other genital organ(s); Z79.899 Other long term (current) drug therapy; Z79.82 Long term (current) use of aspirin
CPT/HCPCS: 36415; 80048; 84484; 85025; 87340; 90935; 93005; G0257; J1644; Q5105

== ENCOUNTER 2019-12-08 17:48 | Inpatient (IN) | payer MEDICARE ==
[2019-12-08 19:28] LABS: #Lymphocytes 2.3 thou/uL (1.20-3.40); #Monocytes 0.4 thou/uL (0.11-0.59); #Neutrophils 6.3 thou/uL (1.40-6.50); %Basophils 0.4 % (0.0-1.0); %Eosinophils 0.4 % (0.0-10.0); %Lymphocytes 25.5 % (21.0-51.0); %Monocytes 4.4 % (0.0-10.0); %Neutrophils 69.3 % (42.0-75.0); Hemoglobin 7.5 g/dL (14.0-18.0); Mean Corpuscular HGB CONC 32.2 g/dL (32.0-36.0); Mean Corpuscular Hemoglobin 32.5 pg (27.0-31.0); Mean Platelet Volume 8.6 fL (7.4-10.4); Platelet Count 131 thou/uL (130-400); RBC Distribution Width 18.3 % (11.5-14.5); Red Blood Cell (RBC) Count 2.32 mill/uL (4.70-6.10)
[2019-12-08 19:33] LABS: PTT 69.3 sec (22.9-36.1)
[2019-12-08 19:34] LABS: Prothrombin Time 116.8 sec (12.0-14.7)
[2019-12-08 19:36] LABS: INR-International Normal Ratio 16.7
[2019-12-08 19:50] LABS: ALT (SGPT) 17 U/L (8-55); AST (SGOT) 25 U/L (5-34); Albumin 2.8 g/dL (3.4-4.8); Alkaline Phosphatase 101 U/L (40-110); Anion Gap 22 mmol/L (10-20); BUN (Urea Nitrogen) 115 mg/dL (8.4-25.7); Bilirubin, Total 1.8 mg/dL (0.2-1.2); Calc. Creatinine Clearance 0 mL/min (70-130); Calcium 10.1 mg/dL (7.8-10.44); Carbon Dioxide 23 mmol/L (23-31); Chloride 98 mmol/L (98-107); Estimated GFR-MDRD 7; Globulin 2.8 g/dL (2.4-3.5); Glucose 86 mg/dL (83-110); Iron 84 ug/dL (65-175); Iron Binding Capacity, Total 270 mcg/dL (261-462); Potassium 4.9 mmol/L (3.5-5.1); Protein, Total 5.6 g/dL (5.8-8.1); Sodium 138 mmol/L (136-145)
[2019-12-08] MEDS ORDERED: Phytonadione 10 MG/ML AMP ONE ×2 (19:57→20:06)
--- NOTE | 2019-12-08 20:13 | CT ---
CT HEAD NONCONTRAST: History: Injury. Weakness. FINDINGS: There is no evidence of acute intracranial hemorrhage or infarct. Mild diffuse cortical atrophy. Ther e is no mass effect or shift of midline structures. Prominent calcification within the arterial structures. Mild mucosal thickening within the right maxi llary sinus. No airfluid levels. IMPRESSION: 1. Atherosclerosis. 2. No acute intracranial abnormalities are demonstrated. POS: BST
--- NOTE | 2019-12-08 20:17 | CT ---
CT SINUSES WITHOUT CONTRAST: History: Bleeding from nose Comparison: None FINDINGS: There are mucosal retention cysts in the right maxillary sinus. Left maxillary sinus is patent. The e thmoid and frontal sinuses are patent. No acute nasal bone fracture. Globes are intact. Advanced degenerative disease at the right temporomandibular joint. IMPRESSION: 1. No acute fracture of the face. 2. Right sided maxillary mucosal retention cyst. 3. No abnormal sinonasal mass. POS: HOME
[2019-12-08] MEDS ORDERED: HUM PROTHROMBIN CPLX(PCC)4FACT 1,000 UNIT, Human Prothrombin Complx(PCC) 500 UNIT in Ad... IV SCH (20:30)
[2019-12-08] MEDS ORDERED: Pantoprazole 40 MG VIAL ONE (20:47)
[2019-12-08] MEDS ORDERED: Pantoprazole 80 MG, Admixture Fee 1 EACH in Sodium Chloride 0.9% 100 ML IVPB SCH (21:00)
[2019-12-08] MEDS ORDERED: HYDROcodone/Acetaminophen 5/325 mg Tablet PO PRN (21:55)
[2019-12-08] MEDS ORDERED: Labetalol HCl 100 MG/20 ML VIAL SLOW IVP PRN (21:55)
[2019-12-08] MEDS ORDERED: Promethazine HCl 12.5 MG in Sodium Chloride 0.9% 50 ML IVPB PRN (21:55)
[2019-12-08] MEDS ORDERED: cloNIDine 0.1 MG TAB PO PRN (21:55)
[2019-12-08] MEDS ORDERED: hydrALAZINE 20 MG/ML VIAL SLOW IVP PRN (21:55)
[2019-12-08] MEDS ORDERED: Morphine 2 MG/ML SYRINGE SLOW IVP PRN (21:55)
--- NOTE | 2019-12-08 22:01 | PDOC.HHP ---
Hospitalist HPI - History of Present Illness Hematemesis, melena History of Present Illness: Patient is a 74 year old male with PMH recent aortic valve replacement (Dr Barone at [facility]), permanent defibrillator or pacemaker, ESRD on MWF HD, chronic hypoxic respiratory failure who presents to ED as [place] for hematemesis/coffee ground emesis/melena and coagulopathy. Patient had recent aortic valve replacement for critical aortic stenosis diagnosed here in October, however the surgery was at [facility] and we do not have records, it was about [address] Barone. Patient was discharged on new prescription for coumadin and plavix amongst other medications, and was unaware that he needed to have INR checks. He reports that he has developed melena over last week or two, and experienced significant epistaxis over last few days as well as 2 episodes coffee ground emesis today and one yesterday. He has been weak and dizzy today and not able to do activities of daily life, exercise tolerance has been rapidly worsening over last month. He fell and hit head about a month ago, per he is at baseline mental status. He has orthopnea and severe MADRID and uses home o2 at all times, denies chest pain or palpitations. In [place] ED , hgb 6.8, tni 0.4, bnp [id number], patient recieved 1u pRBC and TXA and transferred. Here, INR checked and was 16!!! he recieved K centra and IV vitamin K, and has not had obvious bleeding since, ED discussed with GI who will see patient in AM and requested NPO past midnight. He has ESRD and sees Dr Bird. HD done through [facility] in [place], patient has a R forearm AVF by Dr Fuchs, requests to have Dr Fuchs consulted to take a look at fistula since he is unsure if he can use it yet. He gets HD MWF, last session was Sunday and he was unable to go to HD today due to above issues. He had a defibrillator or pacemaker placed last week as well, right before aortic valve surgery. Hospitalist ROS - Review of Systems Constitutional: reports: weakness, malaise. denies: fever, chills, sweats, other Eyes: reports: other (glaucoma and chronic poor vision). denies: pain, vision change, conjunctivae inflammation, eyelid inflammation, redness ENT: reports: other (epistaxis). denies: ear pain, ear discharge, nose pain, nose discharge, nose congestion, mouth pain, mouth swelling, throat pain, throat swelling Respiratory: reports: shortness of breath, SOB with excertion. denies: cough, dry, hemoptysis, pleuritic pain, sputum, wheezing, other Cardiovascular: reports: orthopnea. denies: chest pain, palpitations, paroxysmal noc. dyspnea, edema, light headedness, other Gastrointestinal: reports: nausea, vomiting, melena, other (hematemesis) Genitourinary: denies: dysuria, frequency, incontinence, hematuria, retention, other Musculoskeletal: denies: neck pain, shoulder pain, arm pain, back pain, hand pain, leg pain, foot pain, other Skin: denies: rash, lesions, rohit, bruising, other Neurological: denies: weakness, numbness, incoordination, change in speech, confusion, seizures, other All other systems reviewed; all pertinent +/- noted in HPI/Subj - Medication Medications: reviewed, see EMR for details Hospitalist History - Past Medical History Renal/: reports: Chronic renal insuff, Acute renal failure Other Medical History: ecent aortic valve replacement (Dr Barone at [facility]), permanent defibrillator or pacemaker, ESRD on MWF HD, chronic hypoxic respiratory failure - Past Surgical History Past Surgical History: reports: Other (Fistula) - Family History Family History: reports: no pertinent history Other Family History: AICD Aortic valve replacement eye surgery hernia prostate surgery - Social History Alcohol: reports: None Drugs: reports: none - Exam General Appearance: NAD, awake alert Eye: PERRL, anicteric sclera ENT: normocephalic atraumatic, no oropharyngeal lesions, moist mucosa Neck: supple, symmetric, no JVD, no thyromegaly, no lymphadenopathy, no carotid bruit Heart: RRR, no murmur, no gallops, no rubs, normal peripheral pulses Heart - other findings: R chest wall perm cath Respiratory: CTAB, no wheezes, no rales, no ronchi, normal chest expansion, no tachypnea, normal percussion Respiratory - other findings: crackles dependant Gastrointestinal: soft, non-tender, non-distended, normal bowel sounds, no palpable masses, no hepatomegaly, no splenomegaly, no bruit Extremities: no cyanosis, no clubbing, no edema Skin: normal turgor, no lesions, no rashes Neurological: cranial nerve grossly intact, normal sensation to touch, no weakness, no focal deficits, no new deficit Musculoskeletal: normal tone, normal strength, no muscle wasting Psychiatric: normal affect, normal behavior, A&O x 3 Hospitalist Results - Labs Result Diagrams: 12/08/19 19:11 12/08/19 19:11 Lab results: WBC 9.0 thou/uL (4.8-10.8) 12/08/19 19:11 Hgb 7.5 g/dL (14.0-18.0) L 12/08/19 19:11 Hct 23.4 % (42.0-52.0) L 12/08/19 19:11 MCV 101.0 fL (78.0-98.0) H 12/08/19 19:11 Plt Count 131 thou/uL (130-400) 12/08/19 19:11 Neutrophils % 69.3 % (42.0-75.0) 12/08/19 19:11 Sodium 138 mmol/L (136-145) 12/08/19 19:11 Potassium 4.9 mmol/L (3.5-5.1) 12/08/19 19:11 Chloride 98 mmol/L (98-107) 12/08/19 19:11 Carbon Dioxide 23 mmol/L (23-31) 12/08/19 19:11 BUN 115 mg/dL (8.4-25.7) H 12/08/19 19:11 Creatinine 7.48 mg/dL (0.7-1.3) H 12/08/19 19:11 Glucose 86 mg/dL (83-110) 12/08/19 19:11 Calcium 10.1 mg/dL (7.8-10.44) 12/08/19 19:11 Total Bilirubin 1.8 mg/dL (0.2-1.2) H 12/08/19 19:11 AST 25 U/L (5-34) 12/08/19 19:11 ALT 17 U/L (8-55) 12/08/19 19:11 Alkaline Phosphatase 101 U/L (40-110) 12/08/19 19:11 Serum Total Protein 5.6 g/dL (5.8-8.1) L 12/08/19 19:11 Albumin 2.8 g/dL (3.4-4.8) L 12/08/19 19:11 Additional comment: [place] ED labs reviewed, see HPI for pertinent positives CXR, head/sinus CT reports reviewed - EKG Interpretation EK BPM bifasicular block 1st degree AVB paced Hospitalist H&P A/P - Plan Plan: Patient is a 74 year old male with PMH recent aortic valve replacement (Dr Barone at [facility]), permanent defibrillator or pacemaker, ESRD on MWF HD, chronic hypoxic respiratory failure who presents to ED as [place] for hematemesis/coffee ground emesis/melena and coagulopathy. # upper GI bleed - in the setting of coumadin induced coagulopathy, recieved Kcentra and IV vitamin K with no further bleeding, also recieved 1u pRBC in [place]. consult pharmacy for resuming coumadin once appropriate and check INR daily. - recheck CBC/inr/ptt now, got Kcentra and IV vitamin K in ED - ED discussed case with GI who will evaluate for endoscopy in AM, consult order placed - pharmacy consult for coumadin, patient instructed that from now on he needs to have INR checked in clinic frequently until stable - protonix drip # acute and chronic systolic and diastolic heart failure - in setting of recent critical aortic stenosis, now s/p AVR and with defribrillator or pacemaker - repeat CXR - continue home meds as appropriate once med rec complete - consult nephrology and cardiology for HD and volume/medication management # macrocytic anemia - presume acute anemia of blood loss, may also have chronic anemia, trend hgb and transfuse pRBC for HGB < 7 (or <8 if active bleeding resumes) # chronic hypoxoxic respiratory failure - continue O2, consult cardiology, may be able to improve volume status with their assistance # coagulopathy - due to coumadin medication error and not getting INR checked, got Kcentra and IV vitamin K in ED, follow INR daily and pharmacy consult # ESRD - consult nephrology for HD and surgery Dr Fuchs to look at fistula per patient request # debility - has had massive reduction in exercise tolerance due to heart failure and dyspnea on exertion, will consult PT/OT and case management may benefit from rehab placement or home health PT/OT. fell last month, head CT without acute findings
[2019-12-09 01:36] VITALS: BMI 31.4
[2019-12-09] MEDS ORDERED: Acetaminophen 325 MG TAB PO PRN (01:49)
[2019-12-09] MEDS ORDERED: Sodium Chloride 0.9% 1,000 ML IV SCH (01:49)
[2019-12-09] MEDS: Guaifenesin DM 100-10/5 ML UDCUP PO PRN (02:40)
[2019-12-09 03:01] LABS: #Lymphocytes 2.3 thou/uL (1.20-3.40); #Monocytes 0.5 thou/uL (0.11-0.59); #Neutrophils 7.6 thou/uL (1.40-6.50); %Basophils 0.3 % (0.0-1.0); %Eosinophils 0.3 % (0.0-10.0); %Lymphocytes 22.1 % (21.0-51.0); %Monocytes 4.8 % (0.0-10.0); %Neutrophils 72.5 % (42.0-75.0); Hemoglobin 7.6 g/dL (14.0-18.0); Mean Corpuscular HGB CONC 32.6 g/dL (32.0-36.0); Mean Corpuscular Hemoglobin 32.8 pg (27.0-31.0); Mean Platelet Volume 8.7 fL (7.4-10.4); Platelet Count 109 thou/uL (130-400); RBC Distribution Width 18.4 % (11.5-14.5); Red Blood Cell (RBC) Count 2.31 mill/uL (4.70-6.10); White Blood Cell (WBC) Count 10.5 thou/uL (4.8-10.8)
[2019-12-09 03:06] LABS: INR-International Normal Ratio 2.2; PTT 43.6 sec (22.9-36.1); Prothrombin Time 24.6 sec (12.0-14.7)
[2019-12-09 03:27] LABS: Anion Gap 22 mmol/L (10-20); BUN (Urea Nitrogen) 107 mg/dL (8.4-25.7); Calc. Creatinine Clearance 13 mL/min (70-130); Calcium 8.7 mg/dL (7.8-10.44); Carbon Dioxide 18 mmol/L (23-31); Chloride 106 mmol/L (98-107); Estimated GFR-MDRD 8; Glucose 79 mg/dL (83-110); Magnesium 1.8 mg/dL (1.6-2.6); Potassium 4.5 mmol/L (3.5-5.1); Sodium 141 mmol/L (136-145)
[2019-12-09] MEDS: Ondansetron PF 4 MG/2 ML Vial IVP PRN (06:05)
[2019-12-09] MEDS ORDERED: Prevnar 13-Val Conj/PF 0.5 ML SYRINGE IM ONE (09:00)
[2019-12-09] MEDS ORDERED: EPOETIN ALFA-EPBX (ESRD) 4,000 UNIT/ML VIAL SC SCH (09:00)
[2019-12-09] MEDS: Polyethylene Glycol 3350 17 GM Packet PO SCH (10:18)
--- NOTE | 2019-12-09 14:07 | PDOC.HOSPP ---
- Subjective Encounter Date: 12/09/19 Subjective: Patient is generally doing okay. He reports that attempts to get him up on the side of the bed caused his blood pressure to drop and for him to feel lightheaded in general. He is still profoundly weak and reports he gets very dyspneic with any exertion. Says his legs are too weak to hold him upright now. - Objective Vital Signs & Weight: Vital Signs (12 hours) Temp Pulse BP BP Pulse Ox Pulse Ox Pulse Ox 12/09/19 13:53 97.8 F 12/09/19 11:20 128/77 117/83 12/09/19 11:01 84 130/78 108/59 L 93 L 83 L 12/09/19 11:00 97.8 F 12/09/19 08:00 98 12/09/19 07:38 97.8 F 12/09/19 04:25 97.7 F Weight Weight 207 lb 0.225 oz Most Recent Monitor Data Heart Rate from ECG 80 NIBP 117/64 NIBP BP-Mean 81 Respiration from ECG 35 SpO2 97 I&O: 12/08/19 12/09/19 12/10/19 06:59 06:59 06:59 Intake Total 533.7 0 Balance 533.7 0 Result Diagrams: 12/09/19 02:52 12/09/19 02:52 Hospitalist ROS - Medication Medications: Active Medications Generic Name Dose Route Start Last Admin Trade Name Freq PRN Reason Stop Dose Admin Epoetin Danielito-epbx 7,500 unit 12/09/19 09:00 12/09/19 13:24 Retacrit SC 7,500 unit Q7D OLENA Administration Guaifenesin/Dextromethorphan 15 ml 12/08/19 21:55 12/09/19 02:40 Robitussin Dm PO 15 ml Q4H PRN Administration Cough Ondansetron HCl 4 mg 12/08/19 21:55 12/09/19 06:05 Zofran IVP 4 mg Q6H PRN Administration Nausea/Vomiting use 1st Polyethylene Glycol 17 gm 12/09/19 09:00 12/09/19 10:18 Miralax PO Not Given DAILY OLENA Sodium Chloride 10 ml 12/09/19 09:00 12/09/19 10:25 Flush - Normal Saline IVF Not Given Q12HR OLENA - Exam General Appearance: NAD, awake alert Heart: RRR, no murmur, no gallops, no rubs, normal peripheral pulses Respiratory: CTAB, no wheezes, no rales, no ronchi, normal chest expansion, no tachypnea, normal percussion Gastrointestinal: soft, non-tender, non-distended, normal bowel sounds, no palpable masses, no hepatomegaly, no splenomegaly, no bruit Extremities: no cyanosis, no clubbing, no edema Skin: normal turgor, no lesions, no rashes Musculoskeletal: generalized weakness Psychiatric: normal affect, normal behavior, A&O x 3 Hosp A/P (1) GI bleed Code(s): K92.2 - GASTROINTESTINAL HEMORRHAGE, UNSPECIFIED Status: Acute (2) Acute blood loss anemia Code(s): D62 - ACUTE POSTHEMORRHAGIC ANEMIA Status: Acute (3) Symptomatic anemia Code(s): D64.9 - ANEMIA, UNSPECIFIED Status: Acute (4) History of transcatheter aortic valve replacement (TAVR) Code(s): Z95.2 - PRESENCE OF PROSTHETIC HEART VALVE Status: Acute (5) Supratherapeutic INR Code(s): R79.1 - ABNORMAL COAGULATION PROFILE Status: Acute (6) CAD (coronary artery disease) Code(s): I25.10 - ATHSCL HEART DISEASE OF [place] CORONARY ARTERY W/O ANG PCTRS Status: Acute (7) HTN (hypertension) Code(s): I10 - ESSENTIAL (PRIMARY) HYPERTENSION Status: Acute (8) Chronic respiratory failure with hypoxia Code(s): J96.11 - CHRONIC RESPIRATORY FAILURE WITH HYPOXIA Status: Acute (9) Acute on chronic congestive heart failure Code(s): I50.9 - HEART FAILURE, UNSPECIFIED Status: Acute (10) End stage renal disease on dialysis Code(s): N18.6 - END STAGE RENAL DISEASE; Z99.2 - DEPENDENCE ON RENAL DIALYSIS Status: Acute - Plan Acute GI bleed: Patient will continue on PPI infusion. GI consult pending. May simply be related to the severe coagulopathy. Supratherapeutic INR: Patient was started on Coumadin and was unaware that he needed follow-up labs. It is unclear why the patient is actually on the Coumadin as this is not typical of a TAVR. Discussed the case with cardiology. Dr. Saldana will be reaching out to Dr. Lancaster who performed the TAVR. For now we will discontinue the warfarin. Acute blood loss anemia: We will transfuse another unit of packed red blood cells given the patient's severe dyspnea and orthostasis. His hemoglobin did not significantly change with the first unit. End-stage renal disease: Nephrology following for dialysis. General surgery consulted regarding the possibility of using his fistula. Coronary artery disease: Stable Hypertension: Continue home medications.
--- NOTE | 2019-12-09 14:18 | CON ---
DATE OF CONSULTATION: SERVICE: Renal Medicine. HISTORY OF PRESENT ILLNESS: Mr. Case is a 74-year-old white male with ESRD and was admitted for GI bleed. Please note that he was recently admitted at [facility] and had undergone TAVR with Dr. Lancaster at [facility] [place]. He was noted to have significantly elevated INR. The patient has been on Coumadin. We are being consulted for his maintenance hemodialysis and management of his ESRD. He did miss dialysis yesterday. REVIEW OF SYSTEMS: Positive for generalized malaise. Positive for melena. No chest pain. No shortness of breath. No syncopal episode. Appetite and energy level are fair. No headache. No diplopia. No sore throat. Occasional joint pains. No abdominal pain. No hematochezia. No dysuria. No urinary frequency. MEDICATIONS: 1. Atenolol 25 mg q.a.m. 2. DuoNeb q.2 p.r.n. 3. Clonidine 0.1 mg b.i.d. p.r.n. 4. Hydralazine 10 mg IV q.6 p.r.n. 5. MiraLAX 17 g daily. 6. Promethazine 12.5 mg p.r.n. 7. Rosuvastatin 10 mg at bedtime. Home medications included; 1. ? of Coumadin. 2. Allopurinol 150 mg q.a.m. 3. Ferrous sulfate was 325 mg p.o. b.i.d. PAST MEDICAL HISTORY: 1. 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 2. Aortic valve disease. 3. Coronary artery disease with status post OK. 4. BPH. 5. Gout. 6. Status post CHF. 7. History of prostate cancer - remission. PAST SURGICAL HISTORY: Status post cardiac cath, recently status post TAVR - Dr. Lancaster at [facility] [place], status post renal biopsy, status post prostate biopsy, status post prostatectomy, status post vasectomy, status post back surgery, status post left eye surgery, status post AV fistula placement, status post cuffed hemodialysis catheter placement. SOCIAL HISTORY: The patient lives in [place]. He is . The patient is a nonsmoker. No alcohol intake. 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 Two children. Status post blood transfusion. Currently, medically disabled. No IV drug abuse. FAMILY HISTORY: No family history of ESRD. ALLERGIES: NONE. TRAUMA: None. IMMUNIZATIONS: Up-to-date. HOSPITALIZATIONS: Please see past medical history. PHYSICAL EXAMINATION: VITAL SIGNS: Blood pressure is 126/75, heart rate 87, respiratory rate 28, O2 saturation 100%, and temperature 97.8. GENERAL: The patient is awake, alert, comfortable, not in overt distress. SKIN: Adequate turgor. HEENT: Slightly pale conjunctivae. Anicteric sclerae. NECK: No neck mass. No carotid bruits. No JVD. CHEST: No deformities. LUNGS: Clear breath sounds. No wheezing. No crackles. HEART: Normal sinus rhythm. Grade 2/6 systolic murmur. No gallops. No rubs. ABDOMEN: Globular, soft, and nontender. EXTREMITIES: Trace edema. LABORATORY DATA: Laboratories of December 09, 2019; white count 10.5, hemoglobin 7.6, and hematocrit 23.3. On December 08, 2019; hemoglobin 6.8, hematocrit 22.4. Sodium 141, potassium 4.5, chloride 106, carbon dioxide 18, BUN 107, creatinine 6.66, calcium 8.7, and magnesium 1.8. Ferritin 234. Troponin I 0.422. IMAGING DATA: On December 08, 2019; chest x-ray shows small effusion, haziness on the right lower lung. On December 08, 2019; CT scan of the brain, no acute intracranial abnormality. ASSESSMENT AND PLAN: 1. End-stage renal disease, stable. We will proceed with a 3-hour hemodialysis today. The patient did miss dialysis yesterday. Fluid removal only as tolerated. 2. Status post gastrointestinal bleed, stable. Currently off Coumadin. We will also resume back his Epogen regimen. 3. Anemia, p.r.n. blood transfusion. Epogen regimen has been restarted. 4. Coronary artery disease, asymptomatic. Continue supportive care. Case discussed at length with the patient and . Recheck CBC and basic metabolic panel in a.m. Job ID: [id number]
--- NOTE | 2019-12-09 15:11 | CON ---
DATE OF CONSULTATION: 12/09/2019 REASON FOR CONSULTATION: GI bleeding, recent transcutaneous aortic valve replacement, coronary artery disease, weakness, and fatigue. HISTORY OF PRESENT ILLNESS: Mr. Case is a 74-year-old gentleman. The patient recently developed end-stage renal disease. He also was found to have severe aortic stenosis with a low-flow low-gradient situation and underlying coronary artery disease. He saw Dr. Lancaster and the patient had successful transcutaneous aortic valve replacement and the patient also had a biventricular defibrillator implantation. The patient states that he has been having black stools for a couple of weeks. Finally, he vomited. He has vomited up some black material. He was taken to the emergency room. He was found to have severe anemia and having severe increase in the INR. The patient feels very weak and fatigued. He says he is continuing to feel this way. MEDICATIONS: At home, he was takin. Coumadin. 2. Rosuvastatin. 3. Iron. 4. Allopurinol. 5. Atenolol. ALLERGIES: NONE KNOWN. SOCIAL HISTORY: He has a very supportive family. PHYSICAL EXAMINATION: GENERAL: An ill-appearing 74-year-old man. VITAL SIGNS: Blood pressure is 126/75, pulse is in the 70s and it is paced Pac. NECK: Veins are normal. Carotid, normal upstrokes. LUNGS: Clear. CARDIAC: Normal S1 and normal S2. ABDOMEN: Soft and nontender. EXTREMITIES: Warm and dry. No clubbing or cyanosis. There is mild edema. PERTINENT LABORATORY DATA: Potassium is 4.5. Hemoglobin 7.6. INR was 19.3 yesterday and is 2.2 today after vitamin K and Kcentra. EKG reveals atrial-sensed biventricular-paced rhythm. ASSESSMENT: 1. GI bleed. 2. Supratherapeutic Coumadin level. 3. History of severe aortic stenosis. 4. Underlying coronary artery disease. 5. End-stage renal disease. PLAN: 1. The patient will undergo hemodialysis with fluid removal. 2. Hold Coumadin for now. 3. We will check with Dr. Lancaster to see if the patient needs to be maintained on Coumadin. 4. Repeat echocardiogram to evaluate left ventricular function and the aortic valve. Job ID: [id number]
[2019-12-09] MEDS ORDERED: CEFAZOLIN 2 GM in Premix Bag 1 BAG IVPB SCH (15:30)
[2019-12-09 15:45] LABS: HBSAB Concentration 1.82 mIU/mL; HBSAg Index 0.18 S/CO (0-0.99); Hep B Surf AB Non-Reactive (NonReactive); Hep B Surf Ag Non-Reactive S/CO (NonReactive)
[2019-12-09] MEDS: Atenolol 25 MG TAB PO SCH (16:36)
[2019-12-09] MEDS ORDERED: Warfarin Sodium 2.5 MG TAB PO SCH (17:00)
[2019-12-09] MEDS: Pantoprazole 80 MG, Admixture Fee 1 EACH in Sodium Chloride 0.9% 100 ML IVPB SCH (17:34)
--- NOTE | 2019-12-09 19:38 | CON ---
DATE OF CONSULTATION: HISTORY OF PRESENT ILLNESS: Nahun Case is a 74-year-old male patient, who is admitted to Hospitalist Service, seen by his wearing apparel shaker, Dr. Bird. The patient is admitted because of hematemesis and melena. Apparently, he was placed on Coumadin and has not followed up for INR checks. His Coumadin has been discontinued that there is some question whether he really needs to be on it or not. He does have a cardiomyopathy, last echocardiogram last year prior to undergoing TAVR procedure for his aortic stenosis. Last echocardiogram 30% to 40%. The patient has had problems with dyspnea and continues to have that problem even after his aortic valve treatment. Dr. Deejay Lancaster follows him and perform this. The patient also last week had a pacemaker defibrillator placed. This was placed in the left subclavian. The patient continues to be very weak on standing and that is being evaluated. He has been dialyzed. He had a fistula placed by me in 2017 right arm. This was felt like he would be ready to be used for dialysis. He had both outflow through the cephalic and basilic vein, but to a lesser degree in basilic vein. Once he needed to start dialysis in August 12, 2019, they could not reliably access his fistula and a hemodialysis catheter was placed. At that time, he suffered a myocardial infarction and had to have emergency dialysis access initiated for cardiac evaluation. On August 15, 2019, he had a cuff tunneled dialysis catheter placed. He then underwent fistulogram 08/26/2019, noting inflow proximal radial artery, outflow cephalic and basilic vein, both of which were well dilated without mechanical problems. Prior to that, he had undergone several fistulogram with Dr. Sena demonstrating the same. It was felt his fistula will eventually mature. Also in the office on 09/09/2019, at that time I communicate to the dialysis center to began access in his fistula. Apparently, they tried on 2 separate occasions, then abandoned the efforts. The patient had a followup appointment to see me in next couple of days, but was hospitalized in the interim. I have asked him regarding this. Today's Coumadin has been held and INR has decreased from 16 to 2.2. PT decreased from [address] Schmid has communicated to Dr. Saldana, who will talk to Dr. Deejay Lancaster regarding indications and need for long-term anticoagulation. While he is in the hospital, plan is to perform a superficialization of his fistula and hopefully, we can perform that later this week while he is off Coumadin. However, initial attempt to scheduling surgery had been refused due to limitations in OR availability on that day as apparently services cannot be rendered after 3 p.m. ALLERGIES: NONE. SOCIAL HISTORY: Tobacco, none. Alcohol, none. MEDICATIONS: Coumadin has been held pending evaluation for need. He has taken; 1. Nitroglycerin. 2. Plavix. 3. Metoprolol. 4. Tramadol. PAST SURGICAL HISTORY: Dialysis access history as above, defibrillator placement in left subclavian vein, TAVR procedure earlier this year by Dr. Deejay Lancaster at [facility], umbilical hernia repair with mesh, vasectomy, eye surgery, transurethral prostatectomy for cancer, lumbar surgery for traumatic event, and right arm fistula in 2018 as noted above. PAST MEDICAL HISTORY: Hypertension, gout, history of lead poisoning, now suffered a myocardial infarction earlier this year, TAVR procedure, Dr. Saldana for defibrillator, and cardiac catheterization earlier this year. PHYSICAL EXAMINATION: VITAL SIGNS: Height 5 feet 8 inches, 207 pounds, and BMI 31. Blood pressure 117/64 and heart rate 80. HEAD, EARS, EYES, NOSE, AND THROAT: Unremarkable. LUNGS: Clear to auscultation. CARDIAC: Rhythm. ABDOMEN: Soft, slightly obese. SKIN: Good thrill and bruit. Right arm fistula, well-healed scar proximal volar forearm. Hemodialysis catheter right IJ. EXTREMITIES: Unremarkable. ASSESSMENT AND PLAN: 1. Gastrointestinal bleeding due to unmonitored Coumadin. Discontinued Coumadin. INRs return to normal. I have talked to Dr. Schmid, plan superficialization of right arm fistula, hopefully Sunday pending OR availability and accessibility. 2. Status post transcatheter aortic valve replacement procedure. 3. Cardiomyopathy with defibrillator. 4. Obesity. Job ID: [id number]
[2019-12-09] MEDS: Rosuvastatin 10 MG TAB PO SCH (20:00)
--- NOTE | 2019-12-09 20:20 | CON ---
DATE OF CONSULTATION: 12/09/2019 CHIEF COMPLAINT: Black stools and vomited black material. HISTORY OF PRESENT ILLNESS: Mr. Case is a 74-year-old man, who is on anticoagulation and dialysis due to a prior aortic valve replacement. He has had black formed stools twice per day over the last month. Two days ago, he developed burning epigastric discomfort and then vomited some black bloody looking material at home and then again in the emergency room. He went to the emergency room for further care and was found to have severe anemia with markedly elevated supratherapeutic INR. He was given Kcentra and vitamin K. He has had no further overt bleeding since then. He states that he does not think that the bleeding is coming from his stomach, but from his nose. He states that he has had bleeding from his sinuses regularly over the last month. He swallows blood frequently and feels like if he lies on his left side, then he chokes on drainage from the sinuses. He states that this is worsened since he fell and hit his head around a month ago. He has had no prior endoscopy or colonoscopy. He does have congestive heart failure and shortness of breath on minimal exertion. PAST MEDICAL HISTORY: Congestive heart failure, aortic stenosis status post aortic valve replacement, biventricular defibrillator placement, end-stage renal disease on hemodialysis, gout, hyperlipidemia. PAST SURGICAL HISTORY: Fistula for dialysis, aortic valve replacement, eye surgery, hernia surgery, prostate surgery. FAMILY HISTORY: Negative for GI malignancies. SOCIAL HISTORY: No alcohol, tobacco, or drugs. ALLERGIES: NO KNOWN DRUG ALLERGIES. MEDICATIONS: Prior to admission: 1. Warfarin. 2. Clopidogrel. 3. Metoprolol. 4. Rosuvastatin. 5. Tramadol. 6. Sevelamer. 7. Cefadroxil. Here in the hospital, he is on: 1. Cefazolin. 2. Atenolol. 3. Epoetin. 4. Pantoprazole IV. 5. MiraLAX 17 g scheduled daily. 6. Rosuvastatin. REVIEW OF SYSTEMS: Positive for shortness of breath on minimal exertion. PHYSICAL EXAMINATION: GENERAL: He is in no acute distress. He is tachypneic and is alert and oriented x3. HEENT: Eyes have no scleral icterus. Oropharynx is clear without lesions. No cervical or supraclavicular lymphadenopathy. LUNGS: Clear to auscultation bilaterally. HEART: Regular rate and rhythm without murmur. ABDOMEN: Soft, nontender, and nondistended. Bowel sounds are present. EXTREMITIES: No lower extremity edema. He had an echocardiogram that showed an EF of 25% to 30% with severe mitral regurgitation and moderate tricuspid regurgitation, elevated pulmonary artery pressures were noted. LABORATORY DATA: White blood cell count 10.5, hemoglobin 7.6, platelets 109. INR was 16.7 yesterday and 2.2 today. Creatinine 6.66, bilirubin 1.8, AST 25, ALT 17, alkaline phosphatase 101, albumin 2.8. IMPRESSION: 1. Hematemesis and melena. The patient believes this is from chronic bleeding from his sinuses. He thinks that he swallowed the blood and then vomited the black material back up. His INR was 16 at that time and so, he certainly could have swallowed a significant amount of blood from his sinuses. He has had one formed black stool per day, which does not really indicate a massive acute bleed but more of a gradual bleed over the last month. His anemia will likely be compounded by his renal failure and he is on epoetin for that. He received blood transfusion last night and then one today with dialysis. 2. Nose bleed. 3. Congestive heart failure with recent valve replacement on chronic anticoagulation with defibrillator in place. Elevated pulmonary artery pressures were also noted and also mitral regurgitation. 4. End-stage renal disease, on hemodialysis. RECOMMENDATIONS: 1. His INR has been corrected and he does not appear to have any ongoing overt bleeding. 2. He has received transfusion. 3. Proton pump inhibitor. 4. Now that his INR has been corrected to a therapeutic range, he has no ongoing bleeding. The patient commences his primary bleeding was coming from his nose and that he was swallowing the blood. I am not sure that endoscopy will significantly slip box changer as he could be treated with a proton pump inhibitor and continued on anticoagulation with monitoring of his hemoglobin in the short-term. Given his shortness of breath at rest and worsening shortness of breath with minimal exertion, he is not an optimal candidate for anesthesia. He does not appear to be actively bleeding so it is not expected he will require cauterization or direct intervention for an actively bleeding vessel. For now, I will recommend monitoring for ongoing or repeat overt bleeding and following his hemoglobin. If his hemoglobin remain stable, then he can restart anticoagulation as he does not appear to have ongoing bleeding despite an INR of 2.2. If he does show signs of recurrent bleeding or if Cardiology believes that they need to know more about his GI risk prior to restarting the anticoagulation once his cardiopulmonary status is optimized, we could proceed with endoscopy. For now, I do not see that it would obviously slip box changer acutely. Job ID: [id number] ZANDRA
--- NOTE | 2019-12-10 02:50 | CON ---
DATE OF CONSULTATION: 12/09/2019 HISTORY OF PRESENT ILLNESS: Nahun Case leonid very pleasant gentleman. He denies ever having a GI bleed in the past. He thinks he has been having melena for a month, his says not that long. He has a history of systolic cardiomyopathy and a TAVR as well. He has a defibrillator in place. He has had a vascular access placed in the past, but it failed. In August, he had a tunneled catheter placed. Apparently, according to Dr. Fuchs notes they were never able to access his fistula. He presented with severe coagulopathy, which likely explains his GI bleeding. PAST MEDICAL HISTORY: Otherwise remarkable for herniorrhaphy, eye surgery, TURP for cancer, lumbar spine surgery, and vascular access procedures. Other problems included hypertension, gout, and "? lead poisoning." REVIEW OF SYSTEMS: Otherwise negative. PHYSICAL EXAMINATION: VITAL SIGNS: He is afebrile, heart rates 90, respiratory rates 18, and blood pressure 115/70. HEENT: Pupils are equal. Sclerae are anicteric. NECK: Supple. No lymphadenopathy. LUNGS: Clear. HEART: Regular rhythm. S1 and S2 are normal. ABDOMEN: Soft and nontender. EXTREMITIES: Without clubbing, cyanosis, or edema. LABORATORY DATA: Lab work has been reviewed. IMPRESSION AND PLAN: Gastrointestinal blood loss associated with an INR of 16.7. He has been seen by Cardiology, the Hospitalist, and general surgeon. He says his bleeding stopped. His last hemoglobin 7.6 at 2:52 this morning. Overall, he appears to be stabilizing. Says he feels much better. TIME SPENT: This is a 50-minute consult, 50% of the time spent on the unit coordinating care. Job ID: [id number] MTDD
[2019-12-10] MEDS: Pantoprazole 80 MG, Admixture Fee 1 EACH in Sodium Chloride 0.9% 100 ML IVPB SCH (03:38)
[2019-12-10 07:44] LABS: #Eosinphils 0.1 thou/uL (0.0-0.7); #Lymphocytes 2.8 thou/uL (1.20-3.40); #Monocytes 0.6 thou/uL (0.11-0.59); %Basophils 0.2 % (0.0-1.0); %Eosinophils 0.5 % (0.0-10.0); %Lymphocytes 26.2 % (21.0-51.0); %Monocytes 6.1 % (0.0-10.0); Mean Corpuscular HGB CONC 33.6 g/dL (32.0-36.0); Mean Corpuscular Hemoglobin 33.4 pg (27.0-31.0); Mean Corpuscular Volume 99.2 fL (78.0-98.0); Platelet Count 73 thou/uL (130-400); RBC Distribution Width 19.8 % (11.5-14.5); Red Blood Cell (RBC) Count 2.68 mill/uL (4.70-6.10); White Blood Cell (WBC) Count 10.5 thou/uL (4.8-10.8)
[2019-12-10 07:56] LABS: INR-International Normal Ratio 1.4; Prothrombin Time 17.5 sec (12.0-14.7)
[2019-12-10 08:54] LABS: Anion Gap 21 mmol/L (10-20); BUN (Urea Nitrogen) 95 mg/dL (8.4-25.7); Calc. Creatinine Clearance 13 mL/min (70-130); Calcium 10.3 mg/dL (7.8-10.44); Carbon Dioxide 23 mmol/L (23-31); Chloride 98 mmol/L (98-107); Estimated GFR-MDRD 8; Glucose 92 mg/dL (83-110); Magnesium 2.1 mg/dL (1.6-2.6); Potassium 5.1 mmol/L (3.5-5.1); Sodium 137 mmol/L (136-145)
--- NOTE | 2019-12-10 09:20 | PRG ---
DATE OF SERVICE: 12/10/2019 SUBJECTIVE: Mr. Case is a 74-year-old white male, followed up by the Renal Service for his ESRD. He is currently undergoing hemodialysis. Due to the recent GI bleed and anemia, we are not using any heparin with dialysis. He has a scheduled upper GI endoscopy today. He voices no new complaints. He denies any chest pain or shortness of breath. OBJECTIVE: VITAL SIGNS: Blood pressure 123/73, heart rate 81, respiratory rate 19, and O2 saturation 100%. GENERAL: He is noted to be awake, alert, comfortable, not in distress. SKIN: Adequate turgor. HEENT: He has slightly pale conjunctivae. Anicteric sclerae. No neck mass. No carotid bruits. No JVD. CHEST: No deformities. LUNGS: Clear breath sounds. No wheezing. No crackles. HEART: Normal sinus rhythm. Grade 2/6 systolic murmur. No gallops. No rubs. ABDOMEN: Globular, soft, nontender. No masses. EXTREMITIES: No edema. No deformities. MEDICATIONS: Of December 10, 2019, were reviewed. LABORATORY DATA: Laboratories of December 09, 2019; white count 10.5, hemoglobin 9. Sodium 141, potassium 4.5, chloride 106, carbon dioxide 18, BUN 107, creatinine 6.66, glucose 79, calcium 8.7. ASSESSMENT AND PLAN: 1. End-stage renal disease, stable, undergoing hemodialysis for at least 3 hours. Fluid removal as tolerated. Using no heparin due to the recent gastrointestinal bleed. 2. Anemia/gastrointestinal bleed - [place] upper GI endoscopy. GI is following. 3. Coronary artery disease/valvular heart disease, stable. The patient recently status post TAVR. Cardiology is following. Overall, agree with current management. Please note, we have resume his weekly Epogen. Job ID: [id number] MTDD
[2019-12-10] MEDS: Polyethylene Glycol 3350 17 GM Packet PO SCH (10:14)
--- NOTE | 2019-12-10 10:43 | PRG ---
DATE OF SERVICE: 12/10/2019 SUBJECTIVE: Mr. Case is undergoing hemodialysis and feels well currently. OBJECTIVE: VITAL SIGNS: Blood pressure 125/70, pulse is in the 70s, it is sinus. LUNGS: Clear. CARDIAC: Normal S1, normal S2. ABDOMEN: Soft, nontender. EXTREMITIES: No edema. ASSESSMENT: 1. Status post transcutaneous aortic valve, normal function on echocardiogram. 2. Gastrointestinal bleeding with anemia, stabilized, hemoglobin is 9. 3. I did speak with Dr. Lancaster about why he was on Coumadin. The patient had some atrial fibrillation in the post operative period. We will stop Coumadin at this time. The risk benefit ratio does not favor resuming Coumadin. 4. Continue hemodialysis. 5. Has previous defibrillator. 6. Has left ventricular dysfunction. We will stop atenolol and change to carvedilol. Job ID: [id number]
[2019-12-10] MEDS ORDERED: EPHEDRINE 25 MG/5 ML SYRINGE ONE (11:15)
[2019-12-10] MEDS ORDERED: Lidocaine 1% PF 5 ML VIAL ONE (11:15)
[2019-12-10] MEDS ORDERED: PHENYLEPHRINE-NS 100 MCG/ML 10 ML SYRINGE ONE (11:15)
[2019-12-10] MEDS ORDERED: PROPOFOL 200 MG/20 ML VIAL ONE (11:15)
[2019-12-10] MEDS: Atenolol 25 MG TAB PO SCH (12:25)
--- NOTE | 2019-12-10 13:46 | PRG ---
DATE OF SERVICE: 12/10/2019 SUBJECTIVE: Mr. Case is feeling well. He has had no melenic stool. Hemoglobin came up to 9.0 after transfusion. He has been hemodynamically stable. With correction of INR, he has no longer tasting blood in the back of his throat from sinus drainage. Cardiology has evaluated and decided to take him off warfarin. He is set to go down for dialysis access surgery later today. OBJECTIVE: VITAL SIGNS: Temperature 97.7, blood pressure 126/78, pulse 88, 100% oxygen saturation on 2 L nasal cannula. GENERAL: No acute distress. HEART: Regular rate and rhythm. LUNGS: Clear to auscultation bilaterally. ABDOMEN: Bowel sounds present. Soft, nontender to palpation. EXTREMITIES: No peripheral edema. LABORATORY STUDIES: Hemoglobin 9.0, WBC 10.5, platelets 73. INR down to 1.4. Sodium 137, potassium 5.1, BUN 95, creatinine 6.85. ASSESSMENT/PLAN: 1. Hematemesis and melena. 2. Epistaxis. 3. Supratherapeutic INR, now corrected. 4. Congestive heart failure with recent valve replacement. I agree with Dr. Hennessy's impression that the patient's recent episode likely was a consequence of his known epistaxis in the context of supratherapeutic INR. Now, that INR has been corrected. Epistaxis also seems to be resolving. At this point, particularly given his comorbidities and low concern for significant GI bleeding lesion, we are not going to plan on any upper endoscopy. Obviously, if the clinical situation changes, this could be considered in the future. No dietary restrictions from a GI standpoint. I would have the patient on daily oral proton pump inhibitor. GI will sign off. Please call back if needed. Job ID: [id number]
[2019-12-10] MEDS ORDERED: Lidocaine 1% w/Epinephrine 1:100K 20 ML VIAL ONE ×2 (13:56→15:39)
[2019-12-10] MEDS ORDERED: Bupivacaine 0.25% HCL 30 ML VIAL ONE ×2 (13:56→16:39)
[2019-12-10] MEDS ORDERED: Heparin 10,000 UNITS/ 10 ML VIAL ONE (14:02)
[2019-12-10] MEDS ORDERED: Protamine Sulfate 50 MG/5 ML VIAL ONE ×2 (14:20→15:39)
[2019-12-10] MEDS ORDERED: Heparin 5,000 UNITS/ML VIAL ONE ×2 (14:20→15:39)
--- NOTE | 2019-12-10 14:58 | PRG ---
DATE OF SERVICE: 12/10/2019 SUBJECTIVE: Mr. Case is doing well today. He has talked to Dr. Nicola Hennessy, Gastroenterology, and his hemoglobin is stable at 9 after 2 units of transfusion, and there is no indication for active bleeding and it was suspected his bleeding is from nosebleeds secondary to over anticoagulation. Plan is to not do an EGD and instead plan revision of his right arm fistula today. The patient is agreeable and we will plan that in the operating room today. He can be discharged home from a surgical standpoint later today or tomorrow medical stability. He should follow up with me in 2 to 3 weeks. He should keep an Gibson wrap on his right arm, elevate his right arm as able, remove the dressings and Gibson wrap Sunday, wash the wound with soap and water daily. Continue to use his hemodialysis catheter for dialysis access until he follows up at my office in about 3 weeks postoperatively. Job ID: [id number]
[2019-12-10] MEDS ORDERED: Bupivacaine PF 0.5% 30 ML VIAL ONE (15:39)
[2019-12-10] MEDS ORDERED: Fentanyl 100 MCG/2 ML VIAL ONE (15:53)
[2019-12-10] MEDS ORDERED: Phenylephrine 10 MG/ML VIAL ONE (15:54)
[2019-12-10] MEDS: Carvedilol 3.125 MG TAB PO SCH (15:56)
--- NOTE | 2019-12-10 16:04 | PRG ---
DATE OF SERVICE: 12/10/2019 SUBJECTIVE: Nahun Case says he is feeling great. No endoscopy is planned. I would agree with this, considering the extent of his coagulopathy. OBJECTIVE: VITAL SIGNS: Heart rate 89, blood pressure 115/88, respiratory rates in the 20s. LUNGS: Clear. HEART: Regular rhythm. ABDOMEN: Soft. I have explained to him that his Coumadin is essentially rat poison and it is imperative that he keep up with his PT/INRs over in [place]. He is contemplating finding a new primary care physician, he tells me. Job ID: [id number]
--- NOTE | 2019-12-10 17:55 | PDOC.HOSPP ---
- Subjective Encounter Date: 12/10/19 Subjective: Patient reports he is doing substantially better. Second unit of blood transfused yesterday seem to help him substantially. He has far less dyspnea and is able to get up on the side of the bed for the first time in a while. - Objective Vital Signs & Weight: Vital Signs (12 hours) Temp Pulse Pulse Pulse BP BP Pulse Ox 12/10/19 16:00 98.2 F 12/10/19 13:51 88 90 115/88 127/76 12/10/19 12:25 87 12/10/19 11:21 97.7 F 12/10/19 08:00 100 12/10/19 07:25 97.5 F L Weight Weight 207 lb 0.225 oz Most Recent Monitor Data Heart Rate from ECG 87 NIBP 115/78 NIBP BP-Mean 90 Respiration from ECG 18 SpO2 98 I&O: 12/09/19 12/10/19 12/11/19 06:59 06:59 06:59 Intake Total 533.7 838 Output Total 1000 Balance 533.7 -162 Result Diagrams: 12/10/19 07:23 12/10/19 07:23 Hospitalist ROS - Medication Medications: Active Medications Generic Name Dose Route Start Last Admin Trade Name Freq PRN Reason Stop Dose Admin Carvedilol 3.125 mg 12/10/19 17:00 12/10/19 15:56 Coreg PO 3.125 mg BID-WM OLENA Administration Epoetin Danielito-epbx 7,500 unit 12/09/19 09:00 12/09/19 13:24 Retacrit SC 7,500 unit Q7D OLENA Administration Guaifenesin/Dextromethorphan 15 ml 12/08/19 21:55 12/09/19 02:40 Robitussin Dm PO 15 ml Q4H PRN Administration Cough Pantoprazole Sodium 80 mg/ 100 mls @ 10 mls/hr 12/09/19 10:45 12/10/19 03:38 Miscellaneous Medication 1 IVPB 100 mls each/ Sodium Chloride INF OLENA Administration Ondansetron HCl 4 mg 12/08/19 21:55 12/09/19 06:05 Zofran IVP 4 mg Q6H PRN Administration Nausea/Vomiting use 1st Polyethylene Glycol 17 gm 12/09/19 09:00 12/10/19 10:14 Miralax PO Not Given DAILY OLENA Rosuvastatin Calcium 10 mg 12/09/19 21:00 12/09/19 20:00 Crestor PO 10 mg HS OLEAN Administration Sodium Chloride 10 ml 12/09/19 09:00 12/10/19 10:14 Flush - Normal Saline IVF Not Given Q12HR OLENA - Exam General Appearance: NAD, awake alert Heart: RRR, no murmur, no gallops, no rubs, normal peripheral pulses Respiratory: CTAB, no wheezes, no rales, no ronchi, normal chest expansion, no tachypnea, normal percussion Gastrointestinal: soft, non-tender, non-distended, normal bowel sounds, no palpable masses, no hepatomegaly, no splenomegaly, no bruit Extremities: no cyanosis, no clubbing, 1+ LE edema Neurological: no focal deficits Musculoskeletal: normal tone Psychiatric: normal affect, normal behavior, A&O x 3 Hosp A/P (1) GI bleed Code(s): K92.2 - GASTROINTESTINAL HEMORRHAGE, UNSPECIFIED Status: Ruled-out (2) Acute blood loss anemia Code(s): D62 - ACUTE POSTHEMORRHAGIC ANEMIA Status: Acute (3) Symptomatic anemia Code(s): D64.9 - ANEMIA, UNSPECIFIED Status: Acute (4) History of transcatheter aortic valve replacement (TAVR) Code(s): Z95.2 - PRESENCE OF PROSTHETIC HEART VALVE Status: Acute (5) Supratherapeutic INR Code(s): R79.1 - ABNORMAL COAGULATION PROFILE Status: Acute (6) CAD (coronary artery disease) Code(s): I25.10 - ATHSCL HEART DISEASE OF [place] CORONARY ARTERY W/O ANG PCTRS Status: Acute (7) HTN (hypertension) Code(s): I10 - ESSENTIAL (PRIMARY) HYPERTENSION Status: Acute (8) Chronic respiratory failure with hypoxia Code(s): J96.11 - CHRONIC RESPIRATORY FAILURE WITH HYPOXIA Status: Acute (9) Acute on chronic congestive heart failure Code(s): I50.9 - HEART FAILURE, UNSPECIFIED Status: Acute (10) End stage renal disease on dialysis Code(s): N18.6 - END STAGE RENAL DISEASE; Z99.2 - DEPENDENCE ON RENAL DIALYSIS Status: Acute (11) Epistaxis Code(s): R04.0 - EPISTAXIS Status: Acute - Plan Acute GI bleed: Ruled out. Most likely related to swallowed blood from epistaxis. Supratherapeutic INR: Resolved. Patient was started on Coumadin following his TAVR procedure because he had some A. fib. Discussed with cardiology. Will discontinue the warfarin. Acute blood loss anemia: Hemoglobin is up to 9. Patient is symptomatically much better. End-stage renal disease: Nephrology following for dialysis. General surgery consulted regarding the possibility of using his fistula. He is to have a procedure today to superficialize the fistula. Coronary artery disease: Stable Hypertension: Continue home medications. Disposition: Suspect the patient will be ready for discharge to home once his fistula procedure is performed and stable.
[2019-12-10] MEDS ORDERED: Ondansetron HCl/PF 4 MG/2 ML Vial IVP PRN (18:17)
[2019-12-10] MEDS: Rosuvastatin 10 MG TAB PO SCH (20:37)
--- NOTE | 2019-12-11 00:44 | OP ---
DATE OF PROCEDURE: 12/10/2019 PREOPERATIVE DIAGNOSES: End-stage renal disease, obesity, and inability to reliably cannulate right cephalic vein fistula placed in 2018. POSTOPERATIVE DIAGNOSES: End-stage renal disease, obesity, and inability to reliably cannulate right cephalic vein fistula placed in 2018. PROCEDURE PERFORMED: Cephalic vein transposition fistula, right arm. (ligation of the basilic vein outflow and ligation of retrograde antecubital vein) ANESTHESIA: General, local 0.5% Marcaine with 30 mL and 1% Xylocaine with epinephrine 30 mL, 60 mL total was used. DESCRIPTION OF PROCEDURE: The patient was taken to the operating room, where under general LMA anesthesia, right upper extremity was prepared with ChloraPrep and draped in routine fashion. Incision was made from the proximal volar forearm up to the deltopectoral groove of the anterior arm unroofing the cephalic vein, dividing subcutaneous tissues using cautery for hemostasis. Vein mobilized dividing the branch between 4-0 silk ties and clips. Vein marked. A flap of skin and subcutaneous tissue developed laterally using the cautery. Good hemostasis noted. Vein transposed into this new superficial location and subcutaneous tissue was approximated with continuous suture of 3-0 Monocryl to secure it here. Continuous suture of 3-0 Monocryl used to approximate subcutaneous tissue to close the wound after Surgicel placed in the harvest bed. Skin approximated using henok. Sterile dressing applied. As noted above, the basilic vein and the retrograde antecubital vein were ligated and there was a good Doppler signal at the end of the procedure. Job ID: [id number]
[2019-12-11 04:16] LABS: #Eosinphils 0.1 thou/uL (0.0-0.7); #Lymphocytes 1.2 thou/uL (1.20-3.40); #Monocytes 0.4 thou/uL (0.11-0.59); #Neutrophils 5.8 thou/uL (1.40-6.50); %Basophils 0.4 % (0.0-1.0); %Eosinophils 0.8 % (0.0-10.0); %Lymphocytes 15.8 % (21.0-51.0); %Monocytes 5.7 % (0.0-10.0); %Neutrophils 77.3 % (42.0-75.0); Hemoglobin 8.3 g/dL (14.0-18.0); Mean Corpuscular HGB CONC 33.4 g/dL (32.0-36.0); Mean Corpuscular Hemoglobin 33.6 pg (27.0-31.0); Mean Platelet Volume 9.2 fL (7.4-10.4); Platelet Count 53 thou/uL (130-400); RBC Distribution Width 19.8 % (11.5-14.5); Red Blood Cell (RBC) Count 2.46 mill/uL (4.70-6.10); White Blood Cell (WBC) Count 7.5 thou/uL (4.8-10.8)
[2019-12-11 04:19] LABS: INR-International Normal Ratio 1.9; Prothrombin Time 21.4 sec (12.0-14.7)
[2019-12-11] MEDS: Pantoprazole 80 MG, Admixture Fee 1 EACH in Sodium Chloride 0.9% 100 ML IVPB SCH ×3 (04:24→23:05)
[2019-12-11 04:31] LABS: Anion Gap 19 mmol/L (10-20); BUN (Urea Nitrogen) 71 mg/dL (8.4-25.7); Calc. Creatinine Clearance 14 mL/min (70-130); Calcium 9.7 mg/dL (7.8-10.44); Carbon Dioxide 22 mmol/L (23-31); Chloride 100 mmol/L (98-107); Estimated GFR-MDRD 9; Glucose 100 mg/dL (83-110); Potassium 4.5 mmol/L (3.5-5.1); Sodium 136 mmol/L (136-145)
[2019-12-11] MEDS: Acetaminophen 500 MG TAB PO PRN ×2 (06:14→22:54)
[2019-12-11] MEDS ORDERED: Phytonadione 10 MG/ML AMP PO SCH (08:00)
[2019-12-11] MEDS: Carvedilol 3.125 MG TAB PO SCH (09:12)
[2019-12-11] MEDS: Polyethylene Glycol 3350 17 GM Packet PO SCH (09:13)
[2019-12-11] MEDS ORDERED: Aspirin 81 mg Enteric Coated Tablet PO SCH (09:15)
--- NOTE | 2019-12-11 09:35 | PRG ---
DATE OF SERVICE: 12/11/2019 SERVICE: Renal Medicine. SUBJECTIVE: Mr. Case is a 74-year-old white male, who was admitted for GI bleed due to a supratherapeutic levels of INR. This was corrected. He was given a blood transfusion. In addition, he underwent revision/cephalic transposition of the AV fistula right arm. There was ligation of the basilic vein outflow and ligation of the retrograde antecubital vein. This morning, he voices no new complaints. He denies any chest pain or shortness of breath. He did undergo hemodialysis yesterday without any difficulty. Fluid removal was done. As per GI recommendation-hold off upper GI endoscopy. OBJECTIVE: VITAL SIGNS: Blood pressure 84/57, heart rate 81, respiratory rate 14, O2 saturation 99%. GENERAL: The patient is awake, alert, comfortable. Supine not in distress. SKIN: Adequate turgor. HEENT: Slightly pale conjunctivae. Anicteric sclerae. NECK: No neck mass. No carotid bruits. No JVD. CHEST: No deformities. LUNGS: Clear breath sounds. No wheezing. No crackles. HEART: Normal sinus rhythm. Grade 2/6 systolic murmur. No gallops. No rubs. ABDOMEN: Globular, soft, nontender. No masses. EXTREMITIES: No edema. No deformities. MEDICATIONS: Medications of December 11, 2019, reviewed. LABORATORY DATA: Laboratories of December 11, 2019; white count 7.5, hemoglobin 8.3. Sodium 136, potassium 4.5, chloride 100, carbon dioxide 22, BUN 71, creatinine 5.96, glucose 100, calcium 9.7, magnesium 2.0. ASSESSMENT AND PLAN: 1. Anemia, on p.r.n. blood transfusion, currently on weekly Epogen 7500 units subcu every week. 2. Status post gastrointestinal bleed, stabilizing. INR is much improved. Coumadin is placed on hold per recommendation by Cardiology. 3. End-stage renal disease, stable. We will continue current Sunday, Sunday, and Sunday hemodialysis regimen. Fluid removal only as tolerated using no heparin due to the recent GI bleed with this patient. 4. Overall prognosis remains guarded. Agree with current management. Job ID: [id number]
[2019-12-11] MEDS: Ondansetron PF 4 MG/2 ML Vial IVP PRN ×2 (09:55→23:08)
[2019-12-11] MEDS: Amiodarone 200 MG TAB PO SCH ×2 (10:37→20:25)
--- NOTE | 2019-12-11 10:54 | PRG ---
DATE OF SERVICE: 12/11/2019 SUBJECTIVE: Mr. Case underwent revision of his access graft yesterday. He is feeling well today, but his blood pressure is low, especially with the carvedilol. OBJECTIVE: VITAL SIGNS: His blood pressure is 84/57, pulse is in the 80s, it looks like he is intermittently in and out of atrial fibrillation. LUNGS: Clear. CARDIAC: Irregular intermittently, but now it is regular. ABDOMEN: Soft, nontender. EXTREMITIES: Moderate edema. ASSESSMENT: 1. End-stage renal disease. 2. Previous transcutaneous aortic valve replacement. 3. Gastrointestinal bleeding related to over anticoagulation. INR was even back up to 1.9 despite not receiving any further Coumadin. PLAN: 1. He got vitamin K. 2. We will start aspirin today. 3. Stop carvedilol. 4. Add amiodarone. Job ID: [id number]
--- NOTE | 2019-12-11 15:01 | PRG ---
DATE OF SERVICE: 12/09/2019 ADDENDUM: Mr. Case was found to have a depressed left ventricular function on echocardiogram. The transcutaneous aortic valve is functioning normally, but the ejection fraction is 25% to 30%. I did speak with Dr. Lancaster. The patient had been started on Coumadin for atrial fibrillation, it was noted perioperatively after the transcutaneous valve. We will discontinue Coumadin and continue anti-platelet therapy. Long-term prognosis, guarded. Job ID: [id number]
--- NOTE | 2019-12-11 15:31 | PDOC.HOSPP ---
- Subjective Encounter Date: 12/11/19 Subjective: Patient had some nausea this morning. It was soon after breakfast and associated with some lower GI cramp. That is all fully resolved at this time. His blood pressure has been continuing to run a little low. - Objective Vital Signs & Weight: Vital Signs (12 hours) Temp Pulse Ox 12/11/19 11:54 97.7 F 12/11/19 08:00 100 12/11/19 07:36 96.5 F L 12/11/19 03:52 97.6 F Weight Weight 207 lb 0.225 oz Most Recent Monitor Data Heart Rate from ECG 80 NIBP 91/56 NIBP BP-Mean 67 Respiration from ECG 8 SpO2 100 I&O: 12/10/19 12/11/19 12/12/19 06:59 06:59 06:59 Intake Total 838 240 Output Total 1000 Balance -162 240 Result Diagrams: 12/11/19 03:30 12/11/19 03:30 Hospitalist ROS - Medication Medications: Active Medications Generic Name Dose Route Start Last Admin Trade Name Freq PRN Reason Stop Dose Admin Acetaminophen 1,000 mg 12/10/19 16:35 12/11/19 06:14 Tylenol PO 1,000 mg Q6H PRN Administration Moderate to Severe Pain (6-10) Amiodarone HCl 200 mg 12/11/19 09:00 12/11/19 10:37 Cordarone PO Not Given BID OLENA Epoetin Danielito-epbx 7,500 unit 12/09/19 09:00 12/09/19 13:24 Retacrit SC 7,500 unit Q7D OLENA Administration Guaifenesin/Dextromethorphan 15 ml 12/08/19 21:55 12/09/19 02:40 Robitussin Dm PO 15 ml Q4H PRN Administration Cough Pantoprazole Sodium 80 mg/ 100 mls @ 10 mls/hr 12/09/19 10:45 12/11/19 15:24 Miscellaneous Medication 1 IVPB 100 mls each/ Sodium Chloride INF OLENA Administration Morphine Sulfate 2 mg 12/08/19 21:55 12/11/19 03:33 Morphine SLOW IVP 2 mg Q4H PRN Administration severe pain 4-10 Ondansetron HCl 4 mg 12/08/19 21:55 12/11/19 09:55 Zofran IVP 4 mg Q6H PRN Administration Nausea/Vomiting use 1st Polyethylene Glycol 17 gm 12/09/19 09:00 12/11/19 09:13 Miralax PO Not Given DAILY OLENA Rosuvastatin Calcium 10 mg 12/09/19 21:00 12/10/19 20:37 Crestor PO 10 mg HS OLENA Administration Sodium Chloride 10 ml 12/09/19 09:00 12/11/19 09:13 Flush - Normal Saline IVF Not Given Q12HR OLENA - Exam General Appearance: NAD, awake alert Heart: RRR, no murmur, no gallops, no rubs, normal peripheral pulses Respiratory: CTAB, no wheezes, no rales, no ronchi, normal chest expansion, no tachypnea, normal percussion Gastrointestinal: soft, non-tender, non-distended, normal bowel sounds, no palpable masses, no hepatomegaly, no splenomegaly, no bruit Extremities: 1+ LE edema Neurological: no focal deficits Musculoskeletal: generalized weakness Psychiatric: normal affect, normal behavior, A&O x 3 Hosp A/P (1) GI bleed Code(s): K92.2 - GASTROINTESTINAL HEMORRHAGE, UNSPECIFIED Status: Ruled-out (2) Acute blood loss anemia Code(s): D62 - ACUTE POSTHEMORRHAGIC ANEMIA Status: Acute (3) Symptomatic anemia Code(s): D64.9 - ANEMIA, UNSPECIFIED Status: Acute (4) History of transcatheter aortic valve replacement (TAVR) Code(s): Z95.2 - PRESENCE OF PROSTHETIC HEART VALVE Status: Acute (5) Supratherapeutic INR Code(s): R79.1 - ABNORMAL COAGULATION PROFILE Status: Acute (6) CAD (coronary artery disease) Code(s): I25.10 - ATHSCL HEART DISEASE OF [place] CORONARY ARTERY W/O ANG PCTRS Status: Acute (7) HTN (hypertension) Code(s): I10 - ESSENTIAL (PRIMARY) HYPERTENSION Status: Acute (8) Chronic respiratory failure with hypoxia Code(s): J96.11 - CHRONIC RESPIRATORY FAILURE WITH HYPOXIA Status: Acute (9) Acute on chronic congestive heart failure Code(s): I50.9 - HEART FAILURE, UNSPECIFIED Status: Acute (10) End stage renal disease on dialysis Code(s): N18.6 - END STAGE RENAL DISEASE; Z99.2 - DEPENDENCE ON RENAL DIALYSIS Status: Acute (11) Epistaxis Code(s): R04.0 - EPISTAXIS Status: Acute - Plan Acute GI bleed: Ruled out. Most likely related to swallowed blood from epistaxis. Supratherapeutic INR: Resolved. Patient was started on Coumadin following his TAVR procedure because he had some A. fib. Discussed with cardiology. Will discontinue the warfarin. After decreasing to 1.4, his INR has increased back up to 1.9. We have ordered an additional dose of oral vitamin K. Recheck in the morning. Acute blood loss anemia: Hemoglobin has decreased down to 8.3.. Patient is symptomatically much better. His blood pressure continues to be soft may consider repeating the CBC. End-stage renal disease: Nephrology following for dialysis. Had procedure yesterday to make the AV fistula more accessible. Coronary artery disease: Stable Hypotension: This may be a combination of things. He had the surgical procedure and dialysis yesterday. He also had Coreg initiated. Coreg has been discontinued. Will communicate with Dr. Bird to see if he would like to reinitiate some fluids. Hypertension: Patient had some Coreg started yesterday. He also had the surgical procedure and dialysis yesterday. Since that the patient has had some relative hypotension. The Coreg has been discontinued. History of atrial fibrillation: Patient has Coreg discontinued and amiodarone started by cardiology. His warfarin has been discontinued. History of TAVR: Stable Disposition: Given the relative hypotension today, will continue to monitor now that there have been some medication changes.
--- NOTE | 2019-12-11 17:39 | PRG ---
DATE OF SERVICE: 12/11/2019 OBJECTIVE: VITAL SIGNS: Mr. Case is afebrile. Heart rate is 80, blood pressure 99/62, respiratory rate in the teens. LUNGS: Clear. HEART: Regular rhythm. ABDOMEN: Soft. LABORATORY DATA: White count 7.5, hemoglobin 8.3, platelets 53,000. Electrolytes are normal. BUN 71, creatinine 5.96. IMPRESSION: Gastrointestinal blood loss secondary to over anticoagulation with warfarin. It would be easy enough for him to have his protime checked when he is dialyzed. This would probably be the best option. He is not sure that he is going to for primary care physician back in [place]. Overall, he appears to be stable. We will sign off. Job ID: [id number]
[2019-12-11] MEDS: Rosuvastatin 10 MG TAB PO SCH (20:25)
[2019-12-11] MEDS: Guaifenesin DM 100-10/5 ML UDCUP PO PRN (23:04)
[2019-12-12] MEDS: traMADol HCl 50 MG TAB PO PRN ×2 (02:42→21:49)
--- NOTE | 2019-12-12 08:20 | PRG ---
DATE OF SERVICE: 12/12/2019 SUBJECTIVE: Mr. Case looks weak, does not have much energy. Blood pressure is below 100 systolic, pulse is in the 80s. It looks like he is intermittently in atrial fibrillation. Other times he is us AV pacing with biventricular pacing. OBJECTIVE: VITAL SIGNS: Blood pressure is now 96 systolic, pulse is 80. LUNGS: Clear. CARDIAC: Normal S1. Normal S2. ABDOMEN: Soft, nontender. EXTREMITIES: There is moderate to severe diffuse edema. ASSESSMENT: 1. Congestive heart failure, systolic, volume overloaded. 2. End-stage renal disease. 3. Status post transcutaneous aortic valve replacement. 4. Status post gastrointestinal bleed. PLAN: 1. There is a hope that he could be dialyzed today. Hopefully, his blood pressure will also some fluid removal. 2. He is on oral amiodarone. Prognosis guarded and long-term. 3. The patient not be started on anticoagulant in view of the major GI bleeding on Coumadin. Job ID: [id number]
--- NOTE | 2019-12-12 09:16 | PRG ---
DATE OF SERVICE: 12/12/2019 SUBJECTIVE: Mr. Case is a 74-year-old white male with ESRD-on maintenance hemodialysis, initially admitted for symptomatic anemia. He has? Of GI bleed. GI has evaluated this patient and recommendation is a conservative management. Hold endoscopy. Has been having low blood pressure in the last couple of days. We will give albumin infusion. Fluid removal will only be done as tolerated. I have decided to prime him prior to the said dialysis. No new complaints today. No chest pain or any worsening shortness of breath. OBJECTIVE: VITAL SIGNS: Blood pressure 98/40 and heart rate 70. GENERAL: Awake, supine, comfortable, not in overt distress. SKIN: Adequate turgor. HEENT: He has slightly pale conjunctivae. Anicteric sclerae. NECK: No neck mass. No carotid bruits. No JVD. CHEST: No deformities. LUNGS: Decreased breath sounds. HEART: Normal sinus rhythm. No murmurs. No gallops. No rubs. ABDOMEN: Globular, soft, and nontender. No masses. EXTREMITIES: No edema. No deformities. MEDICATIONS: Medications of December 12, 2019, were reviewed. LABORATORY DATA: Laboratories of December 11, 2019; white count 7.5, hemoglobin 8.3. Sodium 136, potassium 4.5, chloride 100, carbon dioxide 22, BUN 71, creatinine 5.96, and calcium 9.7. ASSESSMENT AND PLAN: 1. Hypotension-minimal fluid removal with dialysis. We will support him with albumin infusion 25 g with the dialysis, so he can tolerate the dialysis. Priming of the said dialysis machine was done. 2. End-stage renal disease, stable. We will continue Sunday, Sunday, and Sunday dialysis regimen. Again, fluid removal only as tolerated. 3. Anemia, currently on weekly Epogen. 4. Gastrointestinal bleed, resolved. Continue supportive care. Job ID: [id number]
[2019-12-12] MEDS ORDERED: Albumin 25% 25 GM/100 ML BOT IVPB SCH (09:30)
[2019-12-12] MEDS: Aspirin 81 mg Enteric Coated Tablet PO SCH (09:48)
[2019-12-12] MEDS: Amiodarone 200 MG TAB PO SCH ×3 (09:48→20:17)
[2019-12-12] MEDS: Polyethylene Glycol 3350 17 GM Packet PO SCH (09:49)
[2019-12-12] MEDS ORDERED: Heparin 10,000 UNITS/ 10 ML VIAL ONE (13:54)
--- NOTE | 2019-12-12 14:06 | PDOC.HOSPP ---
- Subjective Encounter Date: 12/12/19 Subjective: Feels ok. Getting HD now. Has had 2.8 liters off so far. - Objective Vital Signs & Weight: Vital Signs (12 hours) Temp Pulse Ox 12/12/19 11:40 97.7 F 12/12/19 08:13 97.8 F 12/12/19 08:00 100 Weight Weight 207 lb 0.225 oz Most Recent Monitor Data Heart Rate from ECG 83 NIBP 88/61 NIBP BP-Mean 70 Respiration from ECG 15 SpO2 100 I&O: 12/11/19 12/12/19 12/13/19 06:59 06:59 06:59 Intake Total 240 361 Output Total 0 Balance 240 361 Result Diagrams: 12/11/19 03:30 12/11/19 03:30 Hospitalist ROS - Medication Medications: Active Medications Generic Name Dose Route Start Last Admin Trade Name Freq PRN Reason Stop Dose Admin Acetaminophen 1,000 mg 12/10/19 16:35 12/11/19 22:54 Tylenol PO 1,000 mg Q6H PRN Administration Moderate to Severe Pain (6-10) Amiodarone HCl 200 mg 12/12/19 09:00 12/12/19 09:48 Cordarone PO 200 mg TID OLENA Administration Aspirin 81 mg 12/12/19 09:00 12/12/19 09:48 Ecotrin PO 81 mg DAILY OLENA Administration Epoetin Danielito-epbx 7,500 unit 12/09/19 09:00 12/09/19 13:24 Retacrit SC 7,500 unit Q7D OLENA Administration Guaifenesin/Dextromethorphan 15 ml 12/08/19 21:55 12/11/19 23:04 Robitussin Dm PO 15 ml Q4H PRN Administration Cough Pantoprazole Sodium 80 mg/ 100 mls @ 10 mls/hr 12/09/19 10:45 12/11/19 23:05 Miscellaneous Medication 1 IVPB 100 mls each/ Sodium Chloride INF OLENA Administration Morphine Sulfate 2 mg 12/08/19 21:55 12/11/19 03:33 Morphine SLOW IVP 2 mg Q4H PRN Administration severe pain 4-10 Ondansetron HCl 4 mg 12/08/19 21:55 12/11/19 23:08 Zofran IVP 4 mg Q6H PRN Administration Nausea/Vomiting use 1st Polyethylene Glycol 17 gm 12/09/19 09:00 12/12/19 09:49 Miralax PO Not Given DAILY OLENA Rosuvastatin Calcium 10 mg 12/09/19 21:00 12/11/19 20:25 Crestor PO 10 mg HS OLENA Administration Sodium Chloride 10 ml 12/09/19 09:00 12/12/19 09:49 Flush - Normal Saline IVF 10 ml Q12HR OLENA Administration Tramadol HCl 50 mg 12/10/19 16:35 12/12/19 02:42 Ultram PO 50 mg Q4H PRN Administration Moderate Pain (4-6) - Exam General Appearance: NAD, awake alert General - other findings: Pale, edematous. Heart: RRR, no murmur, no gallops, no rubs, normal peripheral pulses Respiratory: CTAB, no wheezes, no rales, no ronchi, normal chest expansion, no tachypnea, normal percussion Gastrointestinal: soft, non-tender, non-distended, normal bowel sounds, no palpable masses, no hepatomegaly, no splenomegaly, no bruit Extremities: 2+ LE edema Skin: normal turgor Neurological: no focal deficits Musculoskeletal: generalized weakness Psychiatric: normal affect, normal behavior, A&O x 3 Hosp A/P (1) GI bleed Code(s): K92.2 - GASTROINTESTINAL HEMORRHAGE, UNSPECIFIED Status: Ruled-out (2) Acute blood loss anemia Code(s): D62 - ACUTE POSTHEMORRHAGIC ANEMIA Status: Acute (3) Symptomatic anemia Code(s): D64.9 - ANEMIA, UNSPECIFIED Status: Acute (4) History of transcatheter aortic valve replacement (TAVR) Code(s): Z95.2 - PRESENCE OF PROSTHETIC HEART VALVE Status: Acute (5) Supratherapeutic INR Code(s): R79.1 - ABNORMAL COAGULATION PROFILE Status: Acute (6) CAD (coronary artery disease) Code(s): I25.10 - ATHSCL HEART DISEASE OF [place] CORONARY ARTERY W/O ANG PCTRS Status: Acute (7) HTN (hypertension) Code(s): I10 - ESSENTIAL (PRIMARY) HYPERTENSION Status: Acute (8) Chronic respiratory failure with hypoxia Code(s): J96.11 - CHRONIC RESPIRATORY FAILURE WITH HYPOXIA Status: Acute (9) Acute on chronic congestive heart failure Code(s): I50.9 - HEART FAILURE, UNSPECIFIED Status: Acute (10) End stage renal disease on dialysis Code(s): N18.6 - END STAGE RENAL DISEASE; Z99.2 - DEPENDENCE ON RENAL DIALYSIS Status: Acute (11) Epistaxis Code(s): R04.0 - EPISTAXIS Status: Acute - Plan Acute GI bleed: Ruled out. Most likely related to swallowed blood from epistaxis. Supratherapeutic INR: Resolved. Patient was started on Coumadin following his TAVR procedure because he had some A. fib. DC'd warfarin. Recheck in the morning. Acute blood loss anemia: CBC in am. Generally stable. End-stage renal disease: Nephrology following for dialysis. Had procedure yesterday to make the AV fistula more accessible. Coronary artery disease: Stable Hypotension: Multifactorial. Getting some albumin with HD. History of atrial fibrillation: Patient has Coreg discontinued and amiodarone started by cardiology. His warfarin has been discontinued. History of TAVR: Stable Disposition: Given the relative hypotension, will continue to monitor now that there have been some medication changes.
[2019-12-12] MEDS: Rosuvastatin 10 MG TAB PO SCH (20:17)
[2019-12-12] MEDS: Acetaminophen 500 MG TAB PO PRN (21:49)
[2019-12-13 04:36] LABS: #Lymphocytes 1.1 thou/uL (1.20-3.40); #Monocytes 0.5 thou/uL (0.11-0.59); #Neutrophils 5.3 thou/uL (1.40-6.50); %Eosinophils 0.6 % (0.0-10.0); %Lymphocytes 16.1 % (21.0-51.0); %Monocytes 6.7 % (0.0-10.0); %Neutrophils 76.7 % (42.0-75.0); Hemoglobin 8.6 g/dL (14.0-18.0); Mean Corpuscular HGB CONC 32.8 g/dL (32.0-36.0); Mean Corpuscular Hemoglobin 33.4 pg (27.0-31.0); Platelet Count 48 thou/uL (130-400); RBC Distribution Width 19.4 % (11.5-14.5); Red Blood Cell (RBC) Count 2.56 mill/uL (4.70-6.10); White Blood Cell (WBC) Count 6.9 thou/uL (4.8-10.8)
[2019-12-13 08:16] LABS: ALT (SGPT) 7 U/L (8-55); AST (SGOT) 32 U/L (5-34); Albumin 2.7 g/dL (3.4-4.8); Alkaline Phosphatase 77 U/L (40-110); Anion Gap 19 mmol/L (10-20); BUN (Urea Nitrogen) 64 mg/dL (8.4-25.7); Bilirubin, Total 1.3 mg/dL (0.2-1.2); Calc. Creatinine Clearance 14 mL/min (70-130); Calcium 9.7 mg/dL (7.8-10.44); Carbon Dioxide 21 mmol/L (23-31); Chloride 99 mmol/L (98-107); Estimated GFR-MDRD 9; Globulin 2.5 g/dL (2.4-3.5); Glucose 99 mg/dL (83-110); Potassium 4.4 mmol/L (3.5-5.1); Protein, Total 5.2 g/dL (5.8-8.1); Sodium 135 mmol/L (136-145)
--- NOTE | 2019-12-13 09:20 | PRG ---
DATE OF SERVICE: 12/13/2019 SERVICE: Renal Medicine. SUBJECTIVE: Mr. Case is a 74-year-old white male with ESRD - on maintenance hemodialysis and admitted for GI bleed. His abnormal INR has been corrected. He received p.r.n. blood transfusion. He underwent hemodialysis. Due to his increased edema, we attempted to remove between 2 and 3 L of fluid yesterday, which he tolerated. He was given albumin infusion during the dialysis. This morning, he is feeling better. His breathing is much improved. He denies any chest pain or shortness of breath. OBJECTIVE: VITAL SIGNS: Blood pressure 101/65, heart rate 79, respiratory rate 27, and O2 saturation is 92%. GENERAL: He is noted to be awake, sitting comfortable, not in distress. SKIN: Adequate turgor. HEENT: He has slightly pale conjunctivae. Anicteric sclerae. NECK: No neck mass. No carotid bruits. No JVD. CHEST: No deformities. LUNGS: Decreased breath sounds. HEART: Normal sinus rhythm. Grade 2/6 systolic murmur. No gallops. No rubs. ABDOMEN: Globular, soft, and nontender. EXTREMITIES: Positive for edema. MEDICATIONS: Medication of December 13, 2019, were reviewed. LABORATORY DATA: Laboratories of December 13, 2019; white count 6.9, hemoglobin 8.6, sodium 135, potassium 4.4, chloride 99, carbon dioxide 21, BUN 64, creatinine 6.31, AST 32, ALT 7, and albumin 2.7. ASSESSMENT AND PLAN: 1. Hypertension, fluctuating. Blood pressure is actually much improved. We did remove fluid with dialysis yesterday. 2. Generalized edema - clinically stable and much improved. Fluid removal with dialysis as tolerated. 3. End-stage renal disease. We will continue current Sunday, Sunday, and Sunday hemodialysis regimen. There is no indication for any dialytic intervention at the present time. 4. Anemia. Continuing weekly Epogen. P.r.n. blood transfusion. Job ID: [id number]
[2019-12-13] MEDS: Polyethylene Glycol 3350 17 GM Packet PO SCH (09:37)
[2019-12-13] MEDS: Amiodarone 200 MG TAB PO SCH ×3 (09:37→22:04)
[2019-12-13] MEDS: Aspirin 81 mg Enteric Coated Tablet PO SCH (09:37)
[2019-12-13] MEDS: Ondansetron PF 4 MG/2 ML Vial IVP PRN (13:17)
--- NOTE | 2019-12-13 13:48 | PRG ---
DATE OF SERVICE: SUBJECTIVE: Nahun Case is doing well today. He is still in the hospital due to problems with his blood pressure. Today, his blood pressure is 120/80. He is alert, sitting in the chair. Dressings have been removed in his right arm. Staple lines intact. He has a fistula with good thrill and bruit in his right arm. He has had left antecubital IV. The wound looks good in the right arm. There is no appreciable worsening swelling. ASSESSMENT/PLAN: 1. Status post cephalic vein transposition of fistula right arm. Continue treatment. Wash the wound daily with soap and water. Elevate the arm as necessary. I will see him in the office in 2-1/2 weeks to remove henok. Continue to dialyze using his hemodialysis catheter until I re-evaluate him as an outpatient. 2. The patient has end-stage renal disease, has left antecubital IV. We will have him remove this stat. Job ID: [id number]
--- NOTE | 2019-12-13 14:09 | EKG ---
Test Reason : Blood Pressure : / mmHG Vent. Rate : 085 BPM Atrial Rate : 085 BPM P-R Int : 000 ms QRS Dur : 158 ms QT Int : 414 ms P-R-T Axes : -12 122 -67 degrees QTc Int : 492 ms Sinus rhythm with 1st degree A-V block Right bundle branch block Left posterior fascicular block Bifascicular block T wave abnormality, consider inferior ischemia Abnormal ECG Confirmed by JASWANT TRENT DO ([id number]), web editor MANUELA JOHANSEN ([id number]) on 12/13/2019 2:09:32 PM Referred By: Confirmed By:JASWANT TRENT DO
[2019-12-13] MEDS ORDERED: Meclizine HCl 12.5 MG TAB PO PRN (14:21)
--- NOTE | 2019-12-13 19:25 | PDOC.HOSPP ---
- Subjective Encounter Date: 12/13/19 Encounter Time: 12:00 Subjective: The patient reports dizziness, states that he has some vertigo, no tinnitus or hearing loss. He denies changes in his vision. Patient noted to be dry heaving actively while I was in the room - Objective Vital Signs & Weight: Vital Signs (12 hours) Temp Pulse Pulse Pulse BP BP BP 12/13/19 15:17 97.2 F L 12/13/19 14:09 80 80 98/61 100/66 12/13/19 11:23 97.2 F L 12/13/19 10:11 81 81 85 101/65 94/60 114/64 12/13/19 08:00 Pulse Ox Pulse Ox Pulse Ox Pulse Ox 12/13/19 15:17 12/13/19 14:09 12/13/19 11:23 12/13/19 10:11 95 95 95 12/13/19 08:00 100 Weight Weight 207 lb 0.225 oz Most Recent Monitor Data Heart Rate from ECG 80 NIBP 112/71 NIBP BP-Mean 84 Respiration from ECG 21 SpO2 100 I&O: 12/12/19 12/13/19 12/14/19 06:59 06:59 06:59 Intake Total 361 Output Total 0 Balance 361 Result Diagrams: 12/13/19 03:57 12/13/19 07:50 Hospitalist ROS - Review of Systems Constitutional: denies: fever, chills - Medication Medications: Active Medications Generic Name Dose Route Start Last Admin Trade Name Freq PRN Reason Stop Dose Admin Acetaminophen 1,000 mg 12/10/19 16:35 12/12/19 21:49 Tylenol PO 1,000 mg Q6H PRN Administration Moderate to Severe Pain (6-10) Hydrocodone Bitart/Acetaminophen 1 tab 12/08/19 21:55 12/13/19 01:34 [place] 5/325 PO 1 tab Q4H PRN Administration Moderate Pain (4-6) Amiodarone HCl 200 mg 12/12/19 09:00 12/13/19 16:20 Cordarone PO 200 mg TID OLENA Administration Aspirin 81 mg 12/12/19 09:00 12/13/19 09:37 Ecotrin PO 81 mg DAILY OLENA Administration Epoetin Danielito-epbx 7,500 unit 12/09/19 09:00 12/09/19 13:24 Retacrit SC 7,500 unit Q7D OLENA Administration Guaifenesin/Dextromethorphan 15 ml 12/08/19 21:55 12/11/19 23:04 Robitussin Dm PO 15 ml Q4H PRN Administration Cough Pantoprazole Sodium 80 mg/ 100 mls @ 10 mls/hr 12/09/19 10:45 12/11/19 23:05 Miscellaneous Medication 1 IVPB 100 mls each/ Sodium Chloride INF OLENA Administration Morphine Sulfate 2 mg 12/08/19 21:55 12/11/19 03:33 Morphine SLOW IVP 2 mg Q4H PRN Administration severe pain 4-10 Ondansetron HCl 4 mg 12/08/19 21:55 12/13/19 13:17 Zofran IVP 4 mg Q6H PRN Administration Nausea/Vomiting use 1st Polyethylene Glycol 17 gm 12/09/19 09:00 12/13/19 09:37 Miralax PO 17 gm DAILY OLENA Administration Rosuvastatin Calcium 10 mg 12/09/19 21:00 12/12/19 20:17 Crestor PO 10 mg HS OLENA Administration Sodium Chloride 10 ml 12/09/19 09:00 12/13/19 09:37 Flush - Normal Saline IVF 10 ml Q12HR OLENA Administration Tramadol HCl 50 mg 12/10/19 16:35 12/12/19 21:49 Ultram PO 50 mg Q4H PRN Administration Moderate Pain (4-6) - Exam General Appearance: NAD, awake alert Eye: PERRL, anicteric sclera ENT: normocephalic atraumatic, no oropharyngeal lesions Neck: no JVD Heart: RRR, no murmur, no gallops, no rubs Respiratory: CTAB, no wheezes, no rales, no ronchi Gastrointestinal: soft, non-tender, non-distended, normal bowel sounds Extremities - other findings: sutures in the right arm present. Skin: normal turgor, no lesions, no rashes Neurological: cranial nerve grossly intact, normal sensation to touch, no focal deficits, no new deficit Musculoskeletal: normal tone, normal strength, no muscle wasting Hosp A/P - Plan This is a 74 year old male who presented to the hospital with hypotension and acute GI bleed Dizziness - will give meclizine prn - check MRI brain - BP stable, orthostatics negative #Acute GI bleed: #Acute blood loss anemia - resolved, likely from epistaxis. - hemoglobin stable -Supratherapeutic INR: Resolved . INR 1.9 today End-stage renal disease: - nephro on board - general surgery revised fistula 12/10. PEr Dr. Fuchs wash with warm water and f/u in clinic in two weeks CAD History of atrial fibrillation: History of TAVR - coreg on hold due to hypotension - continue amiodarone - continue aspirin for CAD DVT prophylaxis: anticoagulation on hold Disposition: check MRI, if dizziness improves then can dc
[2019-12-13] MEDS: Rosuvastatin 10 MG TAB PO SCH (22:04)
[2019-12-14 06:46] LABS: Hemoglobin 9.4 g/dL (14.0-18.0); Mean Corpuscular HGB CONC 32.5 g/dL (32.0-36.0); Mean Platelet Volume 10.4 fL (7.4-10.4); Platelet Count 55 thou/uL (130-400); RBC Distribution Width 18.7 % (11.5-14.5); Red Blood Cell (RBC) Count 2.84 mill/uL (4.70-6.10); White Blood Cell (WBC) Count 8.5 thou/uL (4.8-10.8)
[2019-12-14 06:50] LABS: Anion Gap 21 mmol/L (10-20); BUN (Urea Nitrogen) 80 mg/dL (8.4-25.7); Calc. Creatinine Clearance 12 mL/min (70-130); Calcium 10.4 mg/dL (7.8-10.44); Carbon Dioxide 23 mmol/L (23-31); Chloride 96 mmol/L (98-107); Estimated GFR-MDRD 7; Glucose 101 mg/dL (83-110); Potassium 4.5 mmol/L (3.5-5.1); Sodium 135 mmol/L (136-145)
--- NOTE | 2019-12-14 09:14 | PRG ---
DATE OF SERVICE: 12/14/2019 SUBJECTIVE: Mr. Case is a 74-year-old white male with ESRD on maintenance hemodialysis and was admitted for symptomatic anemia/GI bleed. Since that time, he is doing well. In the interim, he had his AV fistula revised by Dr. Fuchs. This morning, he voices no new complaints. Denies any chest pain or shortness of breath. OBJECTIVE: VITAL SIGNS: Blood pressure is noted at 120/73, heart rate 88, respiratory rate 10, and O2 saturation 100%. GENERAL: The patient is awake, alert, sitting comfortable, not in distress. SKIN: Adequate turgor. HEENT: Slightly pale conjunctivae. Anicteric sclerae. No neck mass. No carotid bruits. No JVD. CHEST: No deformities. LUNGS: Clear breath sounds. No wheezing. No crackles. HEART: Normal sinus rhythm. Grade 2/6 systolic murmur. No gallops. No rubs. ABDOMEN: Globular, soft, nontender. No masses. EXTREMITIES: No edema. No deformities. MEDICATIONS: Of December 14, 2019, were reviewed. LABORATORY DATA: Laboratories of December 14, 2019; white count 8.5, hemoglobin 9.4. Sodium 135, potassium 4.5, chloride 96, carbon dioxide 23, BUN 80, creatinine 7.47, glucose 101, calcium 10.4. ASSESSMENT AND PLAN: 1. Anemia. Continuing weekly Epogen regimen with this patient, tolerating said treatment, p.r.n. blood transfusion. 2. End-stage renal disease, stable. The patient tolerating current hemodialysis regimen. Fluid removal only as tolerated. I do not see any indication for an emergent dialysis today. He is scheduled for his regular Sunday, Sunday, and Sunday dialysis starting tomorrow. 3. Hypotension, much improved. Adjustment of medication has been made. 4. Overall agree with current management. Awaiting long-term facility transfer. Job ID: [id number]
[2019-12-14] MEDS: Polyethylene Glycol 3350 17 GM Packet PO SCH (09:35)
[2019-12-14] MEDS: Aspirin 81 mg Enteric Coated Tablet PO SCH (09:35)
[2019-12-14] MEDS: Amiodarone 200 MG TAB PO SCH ×3 (09:35→22:03)
--- NOTE | 2019-12-14 17:02 | PDOC.HOSPP ---
- Subjective Encounter Date: 12/14/19 Encounter Time: 11:00 Subjective: The patient reports dizziness has improved. He has not ambulated much , just to the bed. He is no longer nauseous. Per case management ,have to re-send authorization for [facility] - Objective Vital Signs & Weight: Vital Signs (12 hours) Temp Pulse Ox 12/14/19 15:27 97.4 F L 12/14/19 11:28 97.7 F 12/14/19 08:00 100 12/14/19 07:26 97.6 F Weight Weight 207 lb 0.225 oz Most Recent Monitor Data Heart Rate from ECG 86 NIBP 118/72 NIBP BP-Mean 87 Respiration from ECG 16 SpO2 100 Result Diagrams: 12/14/19 06:24 12/14/19 06:24 Hospitalist ROS - Review of Systems Constitutional: denies: fever, chills - Medication Medications: Active Medications Generic Name Dose Route Start Last Admin Trade Name Freq PRN Reason Stop Dose Admin Acetaminophen 1,000 mg 12/10/19 16:35 12/12/19 21:49 Tylenol PO 1,000 mg Q6H PRN Administration Moderate to Severe Pain (6-10) Hydrocodone Bitart/Acetaminophen 1 tab 12/08/19 21:55 12/13/19 01:34 [place] 5/325 PO 1 tab Q4H PRN Administration Moderate Pain (4-6) Amiodarone HCl 200 mg 12/12/19 09:00 12/14/19 16:05 Cordarone PO 200 mg TID OLENA Administration Aspirin 81 mg 12/12/19 09:00 12/14/19 09:35 Ecotrin PO 81 mg DAILY OLENA Administration Epoetin Danielito-epbx 7,500 unit 12/09/19 09:00 12/09/19 13:24 Retacrit SC 7,500 unit Q7D OLENA Administration Guaifenesin/Dextromethorphan 15 ml 12/08/19 21:55 12/11/19 23:04 Robitussin Dm PO 15 ml Q4H PRN Administration Cough Pantoprazole Sodium 80 mg/ 100 mls @ 10 mls/hr 12/09/19 10:45 12/11/19 23:05 Miscellaneous Medication 1 IVPB 100 mls each/ Sodium Chloride INF OLENA Administration Morphine Sulfate 2 mg 12/08/19 21:55 06/04/20 03:33 Morphine SLOW IVP 2 mg Q4H PRN Administration severe pain 4-10 Ondansetron HCl 4 mg 12/08/19 21:55 12/13/19 13:17 Zofran IVP 4 mg Q6H PRN Administration Nausea/Vomiting use 1st Polyethylene Glycol 17 gm 12/09/19 09:00 12/14/19 09:35 Miralax PO 17 gm DAILY OLENA Administration Rosuvastatin Calcium 10 mg 12/09/19 21:00 12/13/19 22:04 Crestor PO 10 mg HS OLENA Administration Sodium Chloride 10 ml 12/09/19 09:00 12/14/19 09:36 Flush - Normal Saline IVF 10 ml Q12HR OLENA Administration Tramadol HCl 50 mg 12/10/19 16:35 12/12/19 21:49 Ultram PO 50 mg Q4H PRN Administration Moderate Pain (4-6) - Exam General Appearance: NAD, awake alert Eye: PERRL, anicteric sclera ENT: normocephalic atraumatic, no oropharyngeal lesions Neck: no JVD Heart: RRR, no murmur, no gallops, no rubs Respiratory: CTAB, no wheezes, no rales, no ronchi Gastrointestinal: soft, non-tender, non-distended, normal bowel sounds Extremities: no cyanosis, no clubbing, no edema Skin: normal turgor, no lesions, no rashes Neurological: cranial nerve grossly intact, normal sensation to touch, no focal deficits, no new deficit Hosp A/P - Plan This is a 74 year old male who presented to the hospital with hypotension and acute GI bleed Dizziness- resolved - possibly from physical deconditioning - no need for MRI currently - orthostatics negative #Acute GI bleed: #Acute blood loss anemia - resolved, likely from epistaxis. - hemoglobin stable -Supratherapeutic INR: - Resolved . INR 1.9 End-stage renal disease: - nephro on board - general surgery revised fistula 12/10. PEr Dr. Fuchs wash with warm water and f/u in clinic in two weeks CAD History of atrial fibrillation: History of TAVR - coreg on hold due to hypotension - continue amiodarone - continue aspirin for CAD DVT prophylaxis: anticoagulation on hold Disposition: stable for discharge, pending swing bed at [place]
[2019-12-14 18:31] LABS: INR-International Normal Ratio 2.3
[2019-12-14] MEDS: Rosuvastatin 10 MG TAB PO SCH (22:03)
[2019-12-15 04:53] LABS: Anion Gap 19 mmol/L (10-20); BUN (Urea Nitrogen) 92 mg/dL (8.4-25.7); Calc. Creatinine Clearance 10 mL/min (70-130); Calcium 9.6 mg/dL (7.8-10.44); Carbon Dioxide 22 mmol/L (23-31); Chloride 96 mmol/L (98-107); Estimated GFR-MDRD 6; Glucose 104 mg/dL (83-110); Potassium 4.3 mmol/L (3.5-5.1); Sodium 133 mmol/L (136-145)
[2019-12-15] MEDS: Polyethylene Glycol 3350 17 GM Packet PO SCH (08:30)
[2019-12-15] MEDS: Amiodarone 200 MG TAB PO SCH (08:30)
[2019-12-15] MEDS: Aspirin 81 mg Enteric Coated Tablet PO SCH (08:30)
[2019-12-15] MEDS ORDERED: Phytonadione 10 MG/ML AMP PO SCH (08:45)
[2019-12-15] MEDS ORDERED: Amiodarone 200 MG TAB PO SCH (09:00)
--- NOTE | 2019-12-15 09:05 | PRG ---
DATE OF SERVICE: 12/15/2019 SUBJECTIVE: Mr. Case is actually doing much better. OBJECTIVE: VITAL SIGNS: His blood pressure is improved, it is 120 systolic. Overall, he feels better. His heart rate is now in the 70s, it is mostly atrial and biventricular paced. LUNGS: Clear. CARDIAC: Normal S1. Normal S2. ABDOMEN: Soft and nontender. EXTREMITIES: There is moderate edema in the right arm at the dialysis graft site. ASSESSMENT: 1. Gastrointestinal bleed, stable related to over anticoagulation, even off Coumadin now. His INR is still elevated at 2.3 as of yesterday. 2. Status post transcutaneous aortic valve replacement. 3. Hemoglobin 9.4 yesterday. PLAN: 1. Reduce amiodarone to 200 mg twice a day. 2. Continue aspirin. 3. No Coumadin. 4. He is going to go to the [facility]. Job ID: [id number]
--- NOTE | 2019-12-15 09:59 | PRG ---
DATE OF SERVICE: 12/15/2019 DEPARTMENT: Renal Medicine. SUBJECTIVE: Mr. Case is a 74-year-old white male with ESRD, currently on maintenance hemodialysis. He was initially admitted for symptomatic anemia from a presumed GI bleed. His anemia stabilized with correction of his INR. He did receive blood - 2 units. We have also initiated Epogen with him. In the interim, he had a revision of his AV fistula. Since admission, he is doing more stable. He voices no new complaints today. He denies any chest pain or shortness of breath. OBJECTIVE: VITAL SIGNS: Blood pressure is noted at 121/84, heart rate 90, respiratory rate 17, O2 saturation 100%. GENERAL: Awake, alert, comfortable, not in distress. SKIN: Adequate turgor. HEENT: Slightly pale conjunctivae. Anicteric sclerae. No neck mass. No carotid bruits. No JVD. CHEST: No deformities. LUNGS: Clear breath sounds. HEART: Normal sinus rhythm. No murmurs. No gallops. No rubs. ABDOMEN: Globular, soft, and nontender. No masses. EXTREMITIES: No edema. No deformities. MEDICATIONS: Medications of December 15, 2019, reviewed. LABORATORY DATA: Laboratories of December 14, 2019: White count 8.5, hemoglobin 9.4. On December 15, 2019: Sodium 133, potassium 4.3, chloride 96, carbon dioxide 22, BUN 92, creatinine 8.5, glucose 104, and calcium 9.6. ASSESSMENT AND PLAN: 1. End-stage renal disease, stable. We will continue current Sunday, Sunday, and Sunday hemodialysis. I have scheduled this patient for dialytic intervention today. We will attempt fluid removal only as tolerated by the patient. 2. Anemia, stabilizing. On p.r.n. blood transfusion. Continue weekly Epogen. 3. Gastrointestinal bleed - the patient has stabilized. Continue supportive care. Recheck CBC in a.m. Job ID: [id number]
[2019-12-15 13:43] VITALS: BP 112/60
[2019-12-15] MEDS ORDERED: traMADol HCl 50 MG TAB PO PRN (14:59)
[2019-12-15 15:23] VITALS: TEMP 97.5
--- NOTE | 2019-12-15 18:02 | DIS ---
DATE OF ADMISSION: 12/08/2019 DATE OF DISCHARGE: 12/15/2019 DISCHARGE DIAGNOSES: 1. Acute gastrointestinal bleed secondary to supratherapeutic INR. 2. Acute blood loss anemia, status post blood transfusion. 3. Epistaxis secondary to supratherapeutic INR. 4. Hypotension/dizziness. CONSULTATIONS: 1. Cardiology with Dr. Sanam Saldana. 2. Nephrology with Dr. Phillip Bird. 3. Dr. Ulises Woods with Pulmonary Critical Care. 4. Dr. Nicola Hennessy with Gastroenterology. PROCEDURES: Cephalic vein transposition of fistula on right arm 12/11/2019 BRIEF HISTORY OF PRESENT ILLNESS: This is a 74-year-old male with a past medical history of aortic valve replacement/AICD/ESRD, who presented to the emergency room with hematemesis/coffee-ground emesis/melena. The patient had recent aortic valve replacement for critical aortic stenosis a month ago. He was discharged on Coumadin and Plavix, but was not getting INR checks. He reported some melena and epistaxis. He also had some dizziness, lightheadedness, as well as orthopnea and severe dyspnea on exertion. Upon presentation to the emergency room, his hemoglobin was 6.8. His BNP was 17,000, and his INR was 16.7. He received 1 unit of PRBC at [facility] and was transferred here. He received Kcentra and IV vitamin K and was admitted to the ICU for further workup. HOSPITAL COURSE: Upper GI bleed secondary to supratherapeutic INR: The patient received IV vitamin K and Kcentra. His repeat INRs eventually downtrended to 2.2 and was 2.3 on 7th after holding coumadin. Per Cardiology, he does not need Coumadin on discharge. He was seen by GI who deferred upper endoscopy due to his other medical comorbidities. He will be discharged on a Protonix 40 mg daily. The patient's epistaxis and melena resolved prior to discharge. Acute blood loss anemia: The patient did have a hemoglobin of 7.5 on arrival. He did receive 2 units of blood with improvement in hemoglobin to 9.0. His hemoglobin was 9.4 at the time of discharge. ESRD: The patient was seen by General Surgery while in the hospital due to unreliable fistula on his right cephalic vein placed in 2017. This fistula was revised and he underwent a cephalic vein transposition on his right arm on December 10. He will follow up with Dr. Fuchs in 2 to 3 weeks. He will continue with scheduled dialysis with Dr. Bird and received EPO supplementation as an outpatient. CAD/history of atrial fibrillation/history of TAVR: The patient was noted to have severe dyspnea on exertion. He did receive beta-christopher in the hospital due to echocardiogram showing an EF of 25% to 30%, with severe MR. However, after receiving the beta christopher, he became profoundly hypotensive for several days. The beta-christopher was subsequently held on discharge. For his atrial fibrillation, he was switched to amiodarone. He will be loaded with 200 mg amiodarone twice daily for a month and switched to amiodarone 200 mg daily after that. Per Dr. Saldana , his Plavix and coumadin will be discontinued and he will continue with aspirin only. Dizziness: The patient did have some hypotension secondary to Coreg administration. His blood pressure improved eventually, but he still had some mild dizziness. This may be secondary to physical deconditioning. His orthostatics were negative. The patient was able to ambulate on the day of discharge without any significant dizziness. Consider an MRI of his brain if this continues to persist. DISCHARGE PHYSICAL EXAMINATION: VITAL SIGNS: Temperature 97.5, heart rate 87, respiratory rate 21, and O2 saturation 100% on 1 L of oxygen. GENERAL: The patient is alert, awake, oriented x3. CVS: Regular rate and rhythm with no murmurs, rubs, or gallops. LUNGS: Clear to auscultation bilaterally. ABDOMEN: Positive bowel sounds, soft, nontender, nondistended. EXTREMITIES: The patient has a right arm AV fistula. Sutures in place. There is no significant edema. NEUROLOGIC: Cranial nerves 2 through 12 intact. He has 5/5 strength in his upper and lower extremities. PERTINENT LABORATORY DATA: CBC 12/13: White count 8.5, hemoglobin 9.4, hematocrit 28.9, MCV 102, platelet count 55. BMP 12/14: Sodium 133, potassium 4.3, chloride 96, bicarb 22, BUN 92, creatinine 8.50. LFT 12/12: Total bilirubin 1.3, AST 32, ALT 7, alkaline phosphatase 77. Hep B serology 12/08: Negative. IMAGING: CT brain 12/07: Atherosclerosis. No acute intracranial abnormalities. CT sinus 12/07: Shows right-sided maxillary mucosal retention cyst. Echo 12/08: EF 25% to 30%, severe MR, moderate TR. Markedly elevated PA pressure. DISCHARGE CONDITION: Stable for discharge to [facility]. DIET: Renal diet. He should be on 2 L fluid restriction. DISCHARGE MEDICATIONS: New prescriptions: 1. Aspirin 81 mg p.o. daily. 2. Protonix 40 mg p.o. daily. 3. Amiodarone 200 mg p.o. twice daily for one month, then 200 mg daily after that. Discontinued medications: 1. Plavix 75 mg daily. All other home medications should be resumed. DISCHARGE INSTRUCTIONS: The patient should follow up with his PCP in a week. He should follow up with Dr. Fuchs in 2 to 3 weeks for evaluation of his fistula. He should remove his dressings on Sunday from his right arm and begin washing daily with soap and water. Job ID: [id number] MTDD
== END 2019-12-15 19:01 | disposition swing bed (61) | DRG 981 ==
LOC: ERS 17:48 → IMCU/EMU 21:06
PROVIDERS: ADMIT Internal Medicine; ATTEND Internal Medicine
PROC: 30233N1 Transfusion of Nonautologous Red Blood Cells into Peripheral Vein, Percutaneous Approach (ICD-10-PCS; 2019-12-08)
PROC: 5A1D70Z Performance of Urinary Filtration, Intermittent, Less than 6 Hours Per Day (ICD-10-PCS; 2019-12-08)
PROC: 05WY03Z Revision of Infusion Device in Upper Vein, Open Approach (ICD-10-PCS; principal; 2019-12-10)
DX: D68.32 Hemorrhagic disorder due to extrinsic circulating anticoagulants (principal); N18.6 End stage renal disease; I50.43 Acute on chronic combined systolic (congestive) and diastolic (congestive) heart failure; D62 Acute posthemorrhagic anemia; J96.12 Chronic respiratory failure with hypercapnia; I13.2 Hypertensive heart and chronic kidney disease with heart failure and with stage 5 chronic kidney disease, or end stage renal disease; I42.9 Cardiomyopathy, unspecified; R04.0 Epistaxis; I25.10 Atherosclerotic heart disease of native coronary artery without angina pectoris; I48.91 Unspecified atrial fibrillation; T45.525A Adverse effect of antithrombotic drugs, initial encounter; D63.1 Anemia in chronic kidney disease; M10.9 Gout, unspecified; E66.9 Obesity, unspecified; N40.0 Benign prostatic hyperplasia without lower urinary tract symptoms; I95.2 Hypotension due to drugs; T44.7X5A Adverse effect of beta-adrenoreceptor antagonists, initial encounter; Z79.01 Long term (current) use of anticoagulants; Z79.82 Long term (current) use of aspirin; Z79.899 Other long term (current) drug therapy; I25.2 Old myocardial infarction; Z95.2 Presence of prosthetic heart valve; Z99.2 Dependence on renal dialysis; Z95.810 Presence of automatic (implantable) cardiac defibrillator; Z68.31 Body mass index [BMI] 31.0-31.9, adult
CPT/HCPCS: 36415; 36430; 70450; 80048; 80053; 82728; 83540; 83550; 83735; 85025; 85027; 85610; 85730; 86706; 86850; 86900; 86901; 87340; 90471; 90670; 90935; 93005; 93306; 96360; 96361; 96365; 96366; 96367; 96375; C9113; C9132; G0009; G0257; J1644; J2001; J2270; J2370; J2405; J2704; J2720; J3010; J3430; J3490; P9016; P9047; Q5105; S0020

== ENCOUNTER 2019-12-30 10:05 | Day surgery (SDC) | payer MEDICARE ==
[2019-12-30] MEDS ORDERED: Lidocaine 1% PF 5 ML VIAL ONE (10:43)
[2019-12-30] MEDS ORDERED: EPHEDRINE 25 MG/5 ML SYRINGE ONE (10:43)
[2019-12-30] MEDS ORDERED: PROPOFOL 200 MG/20 ML VIAL ONE (10:43)
[2019-12-30] MEDS ORDERED: Ondansetron PF 4 MG/2 ML Vial ONE (10:43)
[2019-12-30] MEDS ORDERED: PHENYLEPHRINE-NS 100 MCG/ML 10 ML SYRINGE ONE (10:43)
[2019-12-30 13:23] LABS: #Eosinphils 0.1 thou/uL (0.0-0.7); #Lymphocytes 1.4 thou/uL (1.20-3.40); #Monocytes 0.7 thou/uL (0.11-0.59); #Neutrophils 4.4 thou/uL (1.40-6.50); %Basophils 0.1 % (0.0-1.0); %Eosinophils 1.3 % (0.0-10.0); %Monocytes 10.1 % (0.0-10.0); %Neutrophils 67.5 % (42.0-75.0); Hemoglobin 9.5 g/dL (14.0-18.0); Mean Corpuscular HGB CONC 30.8 g/dL (32.0-36.0); Mean Corpuscular Hemoglobin 31.1 pg (27.0-31.0); Mean Platelet Volume 8.2 fL (7.4-10.4); Platelet Count 109 thou/uL (130-400); RBC Distribution Width 16.5 % (11.5-14.5); Red Blood Cell (RBC) Count 3.05 mill/uL (4.70-6.10); White Blood Cell (WBC) Count 6.5 thou/uL (4.8-10.8)
[2019-12-30 13:47] LABS: Anion Gap 15 mmol/L (10-20); BUN (Urea Nitrogen) 41 mg/dL (8.4-25.7); Calc. Creatinine Clearance 0 mL/min (70-130); Calcium 9.5 mg/dL (7.8-10.44); Carbon Dioxide 29 mmol/L (23-31); Chloride 100 mmol/L (98-107); Estimated GFR-MDRD 11; Glucose 88 mg/dL (83-110); Potassium 3.7 mmol/L (3.5-5.1); Sodium 140 mmol/L (136-145)
[2019-12-30] MEDS ORDERED: Bupivacaine 0.25% HCL 30 ML VIAL ONE (15:03)
[2019-12-30] MEDS ORDERED: Lidocaine 1% w/Epinephrine 1:100K 20 ML VIAL ONE (15:03)
[2019-12-30] MEDS ORDERED: Heparin 5,000 UNITS/ML VIAL ONE (15:03)
[2019-12-30] MEDS ORDERED: Fentanyl 100 MCG/2 ML VIAL ONE (16:18)
--- NOTE | 2019-12-30 17:39 | PDOC.OP ---
Operative Note - Operative Note Operative Note: PROCEDURE: Washout debridement and partial reapproximation of right upper arm wound SURGEON: Evin Corley M.D. DATE: 12/30/2019 PREOPERATIVE DIAGNOSIS: Dehiscence of surgical wound of right upper arm POSTOPERATIVE DIAGNOSIS: Dehiscence of surgical wound of right upper arm HISTORY: Patient who presented 2 weeks after right upper arm cephalic vein transposition by Dr. Harris. He had erythema along his entire right upper arm incision and 2 areas of eschar but no drainage. He was started on antibiotics but the open areas extended and the entire wound opened up except for the most proximal and distal portions. There was no exposed fistula but if the wound opened further he was at risk for exposing the fistula proximally and distally. Recommendation was made to go to the operating room for washout debridement and partial reapproximation of the incision with wound VAC placement to the open areas. FINDINGS: No purulence but extremely poor wound healing with necrotic fat and skin sharply excised. No exposed fistula. PROCEDURE IN DETAIL: After informed consent was obtained and appropriate preoperative antibiotics continue the patient was taken to the operating room he was placed in the supine position and general anesthesia was administered. He was prepped and draped in the standard sterile fashion and the remaining eschar sharply excised. The underlying tissues were swabbed for Gram stain and culture but there was no odor or purulence. He appeared to have a large amount of necrotic fat and extremely poor wound healing. The necrotic tissues were excised back to viable appearing tissues. The wound was copiously irrigated and hemostasis verified. The skin was reapproximated at intervals with interrupted vertical mattress and horizontal mattress sutures and the wound care team was called to place a VAC dressing. The entire length of the open part of the incision was 20 cm. There was 5 cm of undermining proximally. Before reapproximation of the skin, the wound measured 5 cm wide and 2 cm deep. The patient tolerated the procedure well. There were no complications. Estimated blood loss was minimal. Specimen is Gram stain and culture of the wound.
[2019-12-30] MEDS ORDERED: Heparin 10,000 UNITS/ 10 ML VIAL ONE (18:31)
== END 2019-12-30 18:50 | disposition home or self-care (01) ==
LOC: SDC 10:05
PROVIDERS: ATTEND Surgery
PROC: 0JQD0ZZ Repair Right Upper Arm Subcutaneous Tissue and Fascia, Open Approach (ICD-10-PCS; principal; 2019-12-30)
DX: T81.31XA Disruption of external operation (surgical) wound, not elsewhere classified, initial encounter (principal); I12.0 Hypertensive chronic kidney disease with stage 5 chronic kidney disease or end stage renal disease; N18.6 End stage renal disease; E78.5 Hyperlipidemia, unspecified; M10.9 Gout, unspecified; Z79.02 Long term (current) use of antithrombotics/antiplatelets; Z79.82 Long term (current) use of aspirin; Z79.899 Other long term (current) drug therapy; Z95.2 Presence of prosthetic heart valve; Z95.810 Presence of automatic (implantable) cardiac defibrillator; Z98.1 Arthrodesis status; Z99.2 Dependence on renal dialysis
CPT/HCPCS: 80048; 85025; 87070; 87077; 87186; 87205; J1644; J1956; J2001; J2405; J2704; J3010; S0020

== ENCOUNTER 2020-01-23 12:58 | Inpatient (IN) | payer MEDICARE ==
[2020-01-23] MEDS ORDERED: Calcium Chloride 1 GM/10 ML Abboject SYRINGE ONE (13:00)
[2020-01-23] MEDS ORDERED: Dextrose 50% Abboject 50 ML SYRINGE ONE (13:00)
[2020-01-23] MEDS ORDERED: EPINEPHrine 1 MG/10 ML Abboject SYRINGE ONE (13:00)
[2020-01-23] MEDS ORDERED: Sodium Bicarb 50 MEQ/50 ML Abboject 8.4% SYRINGE ONE (13:00)
[2020-01-23] MEDS ORDERED: Amiodarone 150 MG/3 ML VIAL ONE (13:00)
[2020-01-23] MEDS ORDERED: Morphine 4 MG/ML VIAL ONE (13:33)
[2020-01-23] MEDS ORDERED: Cefepime 2 GM VIAL ONE (13:33)
[2020-01-23 13:52] LABS: #Basophils 0.1 thou/uL (0.0-0.2); #Lymphocytes 1.8 thou/uL (1.20-3.40); #Monocytes 0.7 thou/uL (0.11-0.59); #Neutrophils 9.6 thou/uL (1.40-6.50); %Eosinophils 0.3 % (0.0-10.0); %Lymphocytes 14.4 % (21.0-51.0); %Monocytes 5.6 % (0.0-10.0); %Neutrophils 78.7 % (42.0-75.0); Hemoglobin 10.3 g/dL (14.0-18.0); INR-International Normal Ratio 1.3; Mean Corpuscular HGB CONC 30.2 g/dL (32.0-36.0); Mean Corpuscular Hemoglobin 29.8 pg (27.0-31.0); Mean Corpuscular Volume 98.9 fL (78.0-98.0); Mean Platelet Volume 8.2 fL (7.4-10.4); PTT 37.9 sec (22.9-36.1); Platelet Count 135 thou/uL (130-400); Prothrombin Time 15.9 sec (12.0-14.7); RBC Distribution Width 17.4 % (11.5-14.5); Red Blood Cell (RBC) Count 3.45 mill/uL (4.70-6.10); White Blood Cell (WBC) Count 11.7 thou/uL (4.8-10.8)
[2020-01-23] MEDS ORDERED: Vancomycin 1.5 GRAM/300 ML BAG 1.5 GM in Premix Bag 1 BAG IVPB SCH (14:00)
--- NOTE | 2020-01-23 14:06 | ULT ---
BILATERAL LOWER EXTREMITY VENOUS DUPLEX EXAM: 01/23/20 Deep veins of both lower extremities evaluated with ultrasound with Doppler with color Doppler, spect ral analysis and compression. INDICATIONS: Bilateral lower extremity pain and edema. FINDINGS: Deep veins of both lower extremities demonstrate normal blood flow and compression. No evidence of DV T. IMPRESSION: Negative bilateral lower extremity venous duplex study. POS: AGW
[2020-01-23 14:11] LABS: ALT (SGPT) 11 U/L (8-55); AST (SGOT) 10 U/L (5-34); Albumin 2.8 g/dL (3.4-4.8); Alkaline Phosphatase 141 U/L (40-110); Anion Gap 18 mmol/L (10-20); BUN (Urea Nitrogen) 61 mg/dL (8.4-25.7); Bilirubin, Total 0.7 mg/dL (0.2-1.2); Calc. Creatinine Clearance 0 mL/min (70-130); Calcium 10.9 mg/dL (7.8-10.44); Carbon Dioxide 26 mmol/L (23-31); Chloride 96 mmol/L (98-107); Estimated GFR-MDRD 9; Globulin 2.8 g/dL (2.4-3.5); Glucose 103 mg/dL (83-110); Potassium 4.3 mmol/L (3.5-5.1); Protein, Total 5.6 g/dL (5.8-8.1); Sodium 136 mmol/L (136-145)
--- NOTE | 2020-01-23 14:14 | RAD ---
PORTABLE CHEST ONE VIEW: 01/23/20 at 1:53 p.m. HISTORY: Bilateral leg sores. Patient on dialysis. FINDINGS/IMPRESSION: Comparison is made with exam of 12/09/19. The heart is enlarged. Left sided AICD and right sided dialysis catheter remain in place. There is op acity of the right lung base with accompanying right effusion. No pneumothoraces are seen. POS: JUANITAA
[2020-01-23] MEDS ORDERED: Enoxaparin Sodium 40 MG/0.4 ML SYRINGE ONE (14:22)
[2020-01-23] MEDS ORDERED: Enoxaparin Sodium 80 MG/0.8 ML SYRINGE ONE (14:22)
[2020-01-23 14:40] LABS: CKMB 1.6 ng/mL (0-6.6)
[2020-01-23] MEDS ORDERED: Acetaminophen 325 MG TAB PO PRN (15:48)
[2020-01-23] MEDS ORDERED: hydrALAZINE 20 MG/ML VIAL SLOW IVP PRN (15:50)
--- NOTE | 2020-01-23 16:37 | CON ---
DATE OF CONSULTATION: HISTORY OF PRESENT ILLNESS: Mr. 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 He has been treated with p.o. antibiotics, but with no improvement. He presented to the ER and because of a failed treatment for cellulitis, he will be admitted for IV antibiotics. We are now being consulted for management of his ESRD as well as peritoneal dialysis as well as his hemodialysis. Please note, he did miss dialysis today and for that reason, I have scheduled him for hemodialysis treatment. Of interest, I was told that the patient's BNP is quite elevated today at 21,408. His chest x-ray on January 23, 2020, showed a heart that is enlarged and there is opacity of the right lung base with right pleural effusion. REVIEW OF SYSTEMS: Positive for shortness of breath on supine position. Chronic leg erythema. No chest pain. Denies any productive cough. Denies any fever or chills. No abdominal pain. Appetite and energy level are somewhat decreased. No syncopal episode. No diplopia. No sore throat. Occasional joint pains. No urinary frequency. No dysuria. No hematochezia. No melena. No hematemesis. HOME MEDICATIONS: Include; 1. Rosuvastatin 10 mg at bedtime. 2. Nitroglycerin 0.4 mg sublingual p.r.n. 3. Metoprolol succinate 12.5 mg at bedtime. 4. Clopidogrel 75 mg daily. 5. Duricef 500 mg p.o. b.i.d. 6. Aspirin 81 mg tablet once a day. PAST MEDICAL HISTORY: Include; 1. 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 2. Hypertension. 3. Severe aortic stenosis, resolved. 4. Ischemic cardiomyopathy. 5. Coronary artery disease with status post FL. 6. BPH. 7. Prostate cancer in remission. 8. History of gout. PAST SURGICAL HISTORY: Status post TAVR, status post cardiac cath, status post renal biopsy, status post prostate biopsy, status post vasectomy, status post prostatectomy, status post back surgery, status post left eye surgery, status post AV fistula placement, and status post cuffed hemodialysis catheter placement. SOCIAL HISTORY: The patient is and lives in [place]. The patient is a nonsmoker. No alcohol intake. 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 Two children. Status post multiple blood transfusion. Medically disabled. FAMILY HISTORY: No family history of ESRD. ALLERGIES: NONE. TRAUMA: None. IMMUNIZATIONS: Up-to-date. HOSPITALIZATIONS: Please see past medical history. PHYSICAL EXAMINATION: VITAL SIGNS: Blood pressure is currently 93/65, heart rate 81, respiratory rate 20, and temperature 97.6. GENERAL: The patient is awake, alert, supine, not in overt distress. SKIN: Adequate turgor. HEENT: He has pinkish conjunctivae. Anicteric sclerae. NECK: No neck mass. No carotid bruits. No JVD. CHEST: No deformities. LUNGS: Decreased breath sounds. HEART: Normal sinus rhythm. Grade 2/6 systolic murmur. No gallops. No rubs. ABDOMEN: Globular, soft, and nontender. No masses. EXTREMITIES: Trace edema. Positive for bilateral erythema with bilateral wounds on both legs. NEUROLOGICAL: Moving all extremities. Oriented to 3 spheres. No tremors. LABORATORY DATA: Laboratories of January 23, 2020; white count 11.7, hemoglobin 10.3. Sodium 136, potassium 4.3, chloride 96, carbon dioxide 26, BUN 61, creatinine 6.39, and calcium 10.9. AST 10, ALT 11, and albumin is 2.8. BNP 21,408. Troponin I 0.31. On January 23, 2020, chest x-ray showed left AICD with the heart being enlarged. Doppler of the extremities no evidence of DVT. ASSESSMENT AND PLAN: 1. Bilateral leg cellulitis - the patient admitted for IV antibiotics. If it does not resolve with IV antibiotics, we may need to do a biopsy. My concern is whether this is a manifestation of his vasculitis. 2. End-stage renal disease. We will continue current hemodialysis regimen. We will do extra dialysis due to his congestive heart failure as well as elevated BNP. 3. Chronic hypotension. Consider midodrine 5 mg tablet daily. We will increase this as needed. Thank you for the consult. We will continue to follow. Job ID: [id number]
[2020-01-23 16:38] LABS: Lactic Acid 1.6 mmol/L (0.5-2.2)
[2020-01-23 16:50] LABS: Critical Call Chem Troponin I RESULT DECREASING; Troponin I 0.309 ng/mL (< 0.028)
[2020-01-23] MEDS ORDERED: Vancomycin 1 GM in Premix Bag 1 BAG IVPB SCH ×2 (17:00→23:30)
--- NOTE | 2020-01-23 18:22 | HP ---
CHIEF COMPLAINT: Lower extremity bruise turned into wound. HISTORY OF PRESENT ILLNESS: This is a 74-year-old male with a history of end- stage renal disease, on hemodialysis, and CHF, presenting with bilateral lower extremity cellulitis as well as what appeared to be a wound on both sides. He states that it started as a sore on both legs and turned into bruise and later on become wound. He did follow up with the outpatient therapy for 1-week antibiotics, he does not remember the name. He does not appear to be getting any better. He came here. He is also volume overloaded. 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 Initially, his blood pressure was 92/72 with a half liter bolus fluid, pressure improved to 115/70s. He has ongoing short of breath for the last 3 to 4 weeks. He had mild leukocytosis of 11.7. His BNP was 21,000. ER contacted Dr. Bird, software test engineer, and he advised not to diurese him, but we will likely get the dialysis today. The patient did not have any fever, night sweats or chills. Other than this leg wound, he is doing well. ALLERGIES: NO KNOWN DRUG ALLERGY. REVIEW OF SYSTEMS: 13-point review of systems reviewed. No fever, night sweats or chills. No change in appetite and weight. No nausea, vomiting, abdominal pain, constipation, diarrhea, hematuria or dysuria. No chest pain or productive cough. Rest of the review of systems are negative. PAST MEDICAL HISTORY: 1. CHF. 2. End-stage renal disease, on hemodialysis. 3. Hypertension. 4. Coronary artery disease. 5. Hypothyroidism. 6. Renal disease due to chronic glomerulonephritis. 7. Severe aortic stenosis, that is resolved. 8. Ischemic cardiomyopathy. 9. BPH. 10. Prostate cancer, in remission. 11. History of gout. MEDICATIONS: 1. Sodium bicarbonate 650 three times a day. 2. Crestor 10 mg at bedtime. 3. Toprol-XL 12.5 mg at bedtime. 4. Plavix 75 mg daily. 5. Aspirin 81 mg daily. SOCIAL HISTORY: The patient does not smoke or drink alcohol, lives with his . FAMILY HISTORY: Significant for father who had an IN. He does not know his mother's health conditions. PHYSICAL EXAMINATION: VITAL SIGNS: Blood pressure 93/65, pulse 81, and temperature is 97.6. GENERAL: The patient is alert, oriented x3, not in any acute distress. He is not septic looking. EXTREMITIES: He has mild trace edema, but most notable and the ominous looking is the bilateral wound on both legs. On the right leg, he has 2 x 2 lateral side wound. On the left, he has 2 x 2 on the medial side, and it is quite flocculent and erythematic, but not foul smelling. CARDIOVASCULAR: Regular rate and rhythm without murmurs, rubs, or gallops. LUNGS: Clear to auscultation bilaterally without wheezing, rales or rhonchi. ABDOMEN: Soft, nontender, and nondistended. Good bowel sounds. EXTREMITIES: As mentioned above. Neurologically, he has no notable deficits. NEUROLOGIC: Cranial nerves 2 through 12 intact. LABORATORY DATA: White count 11.7, hemoglobin 10.3, and creatinine 6.39. His troponin is mildly elevated at 0.31. A chest x-ray showed AICD and the heart was enlarged. Doppler, negative for DVT. IMPRESSION AND PLAN: This is a 74-year-old male without a history of diabetes mellitus, but has renal disease due to glomerulonephritis on dialysis, presenting with the followin. Worsening of his lower extremity cellulitis as well as wound. 2. End-stage renal disease, on hemodialysis. 3. Volume overload with a history of congestive heart failure and dialysis patient. 4. Hypertension. 5. Coronary artery disease. The patient does have chronic hypotension and we may have to start him on low- dose midodrine and up titrated as the blood pressure allows. We will consult Wound Care for the wound and get swap of the wound for the culture. This may need to be biopsied if not resolved with IV antibiotics as vasculitis on the differential. I will get blood cultures and we will follow up on that. Given the patient being a dialysis patient, calciphylaxis cannot be ruled out completely. He is not in any extreme pain and the wound is not foul smelling, so low threshold for calciphylaxis. vancomycin to be administered during dialysis and renally dosed zosyn. Will consider Infectious Disease consult also to look over our management. Full code. Renal diet. Job ID: [id number] [facility]
[2020-01-23] MEDS ORDERED: PIPERACILLIN IVPB SCH (21:00)
[2020-01-23] MEDS ORDERED: TAZOBACTAM IVPB SCH (21:00)
[2020-01-23] MEDS ORDERED: SODIUM CHLORIDE IVPB SCH (21:00)
[2020-01-23] MEDS ORDERED: ADMIXTURE FEE IVPB SCH (21:00)
[2020-01-23] MEDS: Piperacillin/Tazobactam 2.25 GM in Sodium Chloride 0.9% 100 ML IVPB SCH (21:16)
[2020-01-23] MEDS: Rosuvastatin 10 MG TAB PO SCH (21:16)
[2020-01-23] MEDS: Sodium Bicarbonate Tab 325 MG TAB PO SCH (21:17)
[2020-01-23] MEDS: Aspirin Chewable 81 MG TAB PO SCH (21:17)
[2020-01-23] MEDS ORDERED: Vancomycin HCl 750 MG in Sodium Chloride 0.9% 250 ML 250 ML IVPB SCH (23:30)
[2020-01-23] MEDS ORDERED: Vancomycin HCl 1.25 GM in Sodium Chloride 0.9% 250 ML 250 ML IVPB SCH (23:30)
[2020-01-23] MEDS ORDERED: Vancomycin HCl 500 MG in Sodium Chloride 0.9% 100 ML IVPB SCH (23:30)
[2020-01-23] MEDS ORDERED: HOLD VANCOMYCIN FOR LEVEL >20 FS SCH (23:30)
[2020-01-24] MEDS: HYDROcodone/Acetaminophen 5/325 mg Tablet PO PRN (03:42)
[2020-01-24 05:05] LABS: Anion Gap 19 mmol/L (10-20); BUN (Urea Nitrogen) 56 mg/dL (8.4-25.7); Calc. Creatinine Clearance 14 mL/min (70-130); Calcium 10.9 mg/dL (7.8-10.44); Carbon Dioxide 22 mmol/L (23-31); Chloride 100 mmol/L (98-107); Estimated GFR-MDRD 10; Glucose 113 mg/dL (83-110); Potassium 4.1 mmol/L (3.5-5.1); Sodium 137 mmol/L (136-145)
[2020-01-24 06:55] LABS: Hemoglobin 9.5 g/dL (14.0-18.0); Mean Corpuscular HGB CONC 29.5 g/dL (32.0-36.0); Mean Corpuscular Volume 98.5 fL (78.0-98.0); Mean Platelet Volume 8.6 fL (7.4-10.4); Platelet Count 129 thou/uL (130-400); RBC Distribution Width 17.3 % (11.5-14.5); Red Blood Cell (RBC) Count 3.28 mill/uL (4.70-6.10); White Blood Cell (WBC) Count 10.8 thou/uL (4.8-10.8)
[2020-01-24] MEDS ORDERED: Nitroglycerin 0.4 MG TAB (25 Tab Bottle) SL PRN (07:55)
[2020-01-24 08:37] LABS: #Eosinphils 0.1 thou/uL (0.0-0.7); #Lymphocytes 1.4 thou/uL (1.20-3.40); #Monocytes 0.5 thou/uL (0.11-0.59); #Neutrophils 8.8 thou/uL (1.40-6.50); %Eosinophils 1.2 % (0.0-10.0); %Lymphocytes 12.8 % (21.0-51.0); %Monocytes 4.3 % (0.0-10.0); %Neutrophils 81.7 % (42.0-75.0); Anisocytosis SLIGHT = 6-15 cells (100X) (0-5/hpf); Hypochromia SLIGHT = 6-15 cells (100X) (0-5/hpf); MDiff Complete? YES; Platelet Morphology Comment Appears Decreased; Polychromasia SLIGHT = 2-3 cells (100X) (0-2/hpf)
[2020-01-24] MEDS: Clopidogrel Bisulfate 75 MG TAB PO SCH (09:16)
[2020-01-24] MEDS: Sodium Bicarbonate Tab 325 MG TAB PO SCH (09:17)
[2020-01-24] MEDS: Sevelamer Carbonate 800 MG TAB PO SCH ×3 (09:17→21:50)
[2020-01-24] MEDS: Amiodarone 200 MG TAB PO SCH (09:17)
[2020-01-24] MEDS: Piperacillin/Tazobactam 2.25 GM in Sodium Chloride 0.9% 100 ML IVPB SCH ×2 (09:18→21:51)
--- NOTE | 2020-01-24 09:31 | PRG ---
DATE OF SERVICE: 01/24/2020 SUBJECTIVE: Mr. 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 He was attempted p.o. antibiotics with no improvement. He was now admitted for initiation of IV antibiotics. If no improvement, we may need to do a biopsy of the cellulitis to rule out any underlying vasculitis with this. This morning, still feeling tired and weak. We will do another extra dialysis with this patient due to volume overload. BNP was noted to be significantly elevated. OBJECTIVE: VITAL SIGNS: Blood pressure 112/55, heart rate 82, respiratory rate 18, temperature 97.7, and O2 saturation 91% on room air. GENERAL: The patient is awake, supine, lethargic, but not in distress. SKIN: Adequate turgor. HEENT: Slightly pale conjunctivae. Anicteric sclerae. NECK: No neck mass. No carotid bruits. No JVD. CHEST: No deformities. LUNGS: Decreased breath sounds. HEART: Normal sinus rhythm. Grade 2/6 systolic murmur. No gallops. No rubs. ABDOMEN: Globular, soft, and nontender. No masses. EXTREMITIES: Bilateral erythema and wound in both legs. NEUROLOGIC: Awake. Oriented to 3 spheres. Moving all extremities. No tremors. No asterixis. MEDICATIONS: Medications of January 24, 2020, was reviewed. LABORATORY DATA: Laboratories of January 24, 2020; white count 10.8, hemoglobin 9.5, sodium 137, potassium 4.1, chloride 100, carbon dioxide 22, BUN 56, creatinine 5.66, calcium 10.3. Troponin I 0.4. Blood culture; no growth to date. ASSESSMENT AND PLAN: 1. Bilateral leg cellulitis - on IV antibiotics. Currently, on Zosyn and vancomycin. If no significant improvement, we will consider biopsy of the said leg lesions. 2. End-stage renal disease - due to the significantly elevated BNP/congestive heart failure. We will do an extra dialysis today. We will attempt a 3-hour dialysis treatment with this patient. We will do a 2-hour ultrafiltration in the first 2 hours and 1 hour of hemodialysis. 3. Anemia. We will initiate back Epogen at 7500 units subcu every week. Recheck PTH and serum phosphorus in a.m. Job ID: [id number] [facility]
[2020-01-24] MEDS ORDERED: EPOETIN ALFA-EPBX (ESRD) 4,000 UNIT/ML VIAL SC SCH (10:00)
[2020-01-24 11:44] LABS: Vancomycin, Random 16.6 ug/mL (See Comment)
[2020-01-24 12:38] VITALS: BMI 28.1
[2020-01-24] MEDS ORDERED: Heparin 10,000 UNITS/ 10 ML VIAL ONE (13:07)
--- NOTE | 2020-01-24 19:15 | PDOC.HOSPP ---
- Subjective Subjective: Seen and examined. Patient with bilateral lower extremity cellulitis/wounds that he states began as bruising. There is concern that this may be secondary to vasculitis. The general surgery consultation has been requested and a biopsy may be required for definitive diagnosis. He is on appropriate medical therapy with antibiotics. Nephrology is following for end-stage renal disease, recommendations appreciated. Time was given for questions, all answered in detail. He is in good spirits. - Objective Vital Signs & Weight: Vital Signs (12 hours) Temp Pulse Resp BP Pulse Ox 01/24/20 16:26 97.6 F 81 18 114/62 99 01/24/20 11:21 97.6 F 80 18 107/62 99 01/24/20 09:02 97.5 F L 80 19 106/62 98 Weight Admit Weight 187 lb 1.6 oz Weight 185 lb 6.4 oz I&O: 01/23/20 01/24/20 01/25/20 06:59 06:59 06:59 Intake Total 480 360 Output Total 1800 3000 Balance -1320 -2640 Result Diagrams: 01/24/20 04:13 01/24/20 04:13 Radiology Reviewed by me: Yes Hospitalist ROS - Review of Systems All other systems reviewed; all pertinent +/- noted in HPI/Subj - Medication Medications: Active Medications Generic Name Dose Route Start Last Admin Trade Name Freq PRN Reason Stop Dose Admin Hydrocodone Bitart/Acetaminophen 1 tab 01/23/20 15:48 01/24/20 03:42 [place] 5/325 PO 1 tab Q4H PRN Administration Moderate Pain (4-6) Amiodarone HCl 200 mg 01/24/20 09:00 01/24/20 09:17 Cordarone PO 200 mg DAILY OLENA Administration Aspirin 81 mg 01/23/20 21:00 01/23/20 21:17 Aspirin Chewable PO 81 mg HS OLENA Administration Clopidogrel Bisulfate 75 mg 01/24/20 09:00 01/24/20 09:16 Plavix PO Not Given DAILY OLENA Epoetin Danielito-epbx 7,500 unit 01/24/20 10:00 01/24/20 10:53 Retacrit SC 7,500 unit Q7D OLENA Administration Piperacillin Sod/Tazobactam 100 mls @ 200 mls/hr 01/23/20 21:00 01/24/20 09: 18 Sod 2.25 gm/ Sodium Chloride IVPB 100 mls Q12HR OLENA Administration Metoprolol Succinate 12.5 mg 01/23/20 21:00 01/23/20 21:17 Toprol Xl PO 12.5 mg HS OLENA Administration Pantoprazole Sodium 40 mg 01/24/20 09:00 01/24/20 09:17 Protonix PO 40 mg DAILY OLENA Administration Rosuvastatin Calcium 10 mg 01/23/20 21:00 01/23/20 21:16 Crestor PO 10 mg HS OLENA Administration Sevelamer Carbonate 800 mg 01/24/20 09:00 01/24/20 16:32 Renvela PO 800 mg TID OLENA Administration - Exam General Appearance: NAD, awake alert Eye: PERRL, anicteric sclera ENT: normocephalic atraumatic, moist mucosa Neck: supple, symmetric, no lymphadenopathy Heart: no murmur, no gallops, no rubs, normal peripheral pulses Respiratory: CTAB, no wheezes, no rales, no ronchi, normal chest expansion, no tachypnea Gastrointestinal: soft, non-tender, non-distended, no guarding, no rigidity Extremities: 1+ LE edema Skin - other findings: Severe and extensive Bilateral LE wounds - see wound care pictures Neurological: cranial nerve grossly intact, no focal deficits Musculoskeletal: generalized weakness, diffuse muscle atrophy Psychiatric: normal behavior, A&O x 3 Hosp A/P (1) Cellulitis, leg Code(s): L03.119 - CELLULITIS OF UNSPECIFIED PART OF LIMB Status: Acute (2) Leg pain Status: Acute (3) Vasculitis Code(s): I77.6 - ARTERITIS, UNSPECIFIED Status: Acute (4) Aortic stenosis Code(s): I35.0 - NONRHEUMATIC AORTIC (VALVE) STENOSIS Status: Chronic (5) BPH (benign prostatic hyperplasia) Code(s): N40.0 - BENIGN PROSTATIC HYPERPLASIA WITHOUT LOWER URINRY TRACT SYMP Status: Chronic (6) CAD (coronary artery disease) Code(s): I25.10 - ATHSCL HEART DISEASE OF [place] CORONARY ARTERY W/O ANG PCTRS Status: Chronic (7) Chronic respiratory failure with hypoxia Code(s): J96.11 - CHRONIC RESPIRATORY FAILURE WITH HYPOXIA Status: Chronic (8) End stage renal disease on dialysis Code(s): N18.6 - END STAGE RENAL DISEASE; Z99.2 - DEPENDENCE ON RENAL DIALYSIS Status: Chronic (9) HTN (hypertension) Code(s): I10 - ESSENTIAL (PRIMARY) HYPERTENSION Status: Chronic (10) Systolic heart failure Code(s): I50.20 - UNSPECIFIED SYSTOLIC (CONGESTIVE) HEART FAILURE Status: Chronic Qualifiers: Heart failure chronicity: acute on chronic Qualified Code(s): I50.23 - Acute on chronic systolic (congestive) heart failure (11) Acute on chronic congestive heart failure Code(s): I50.9 - HEART FAILURE, UNSPECIFIED Status: Resolved (12) History of transcatheter aortic valve replacement (TAVR) Code(s): Z95.2 - PRESENCE OF PROSTHETIC HEART VALVE Status: Inactive - Plan Plan: nephrology consultation, recommendations appreciated surgery consultation, recommendations appreciated broad-spectrum IV antibiotics, de-escalate to culture and sensitivity is able blood culture would culture a biopsy may be needed for definitive diagnosis of infection/ cellulitis versus vasculitis continue home medications is able blood pressure control blood sugar control G.I. prophylaxis DVT prophylaxis
--- NOTE | 2020-01-24 21:33 | RAD ---
PORTABLE CHEST: 01/24/20 HISTORY: Confusion. COMPARISON: 01/23/20 Right effusion, right basilar infiltrate and/or atelectasis again noted, unchanged from yesterday. Le ft lung remains clear and unchanged. The central catheter and the AICD leads are unchanged. IMPRESSION: Stable chest findings from yesterday. POS: AGW
[2020-01-24] MEDS: Rosuvastatin 10 MG TAB PO SCH (21:49)
[2020-01-24] MEDS: Aspirin Chewable 81 MG TAB PO SCH (21:50)
[2020-01-25] MEDS: HYDROcodone/Acetaminophen 5/325 mg Tablet PO PRN ×2 (00:15→22:40)
[2020-01-25 05:17] LABS: Anion Gap 18 mmol/L (10-20); BUN (Urea Nitrogen) 57 mg/dL (8.4-25.7); Calc. Creatinine Clearance 13 mL/min (70-130); Calcium 10.8 mg/dL (7.8-10.44); Carbon Dioxide 23 mmol/L (23-31); Chloride 99 mmol/L (98-107); Estimated GFR-MDRD 9; Glucose 88 mg/dL (83-110); Potassium 4.1 mmol/L (3.5-5.1); Sodium 136 mmol/L (136-145)
[2020-01-25 06:42] LABS: #Eosinphils 0.2 thou/uL (0.0-0.7); #Lymphocytes 2.3 thou/uL (1.20-3.40); #Monocytes 0.7 thou/uL (0.11-0.59); #Neutrophils 10.7 thou/uL (1.40-6.50); %Basophils 0.1 % (0.0-1.0); %Eosinophils 1.1 % (0.0-10.0); %Lymphocytes 16.6 % (21.0-51.0); %Monocytes 5.3 % (0.0-10.0); Anisocytosis MODERATE=16-30 cells (100X) (0-5/hpf); Hemoglobin 9.6 g/dL (14.0-18.0); MDiff Complete? YES; Mean Corpuscular HGB CONC 29.3 g/dL (32.0-36.0); Mean Corpuscular Hemoglobin 28.7 pg (27.0-31.0); Mean Corpuscular Volume 97.7 fL (78.0-98.0); Mean Platelet Volume 8.5 fL (7.4-10.4); Platelet Count 152 thou/uL (130-400); RBC Distribution Width 17.3 % (11.5-14.5); Red Blood Cell (RBC) Count 3.34 mill/uL (4.70-6.10); White Blood Cell (WBC) Count 13.9 thou/uL (4.8-10.8)
[2020-01-25] MEDS: Piperacillin/Tazobactam 2.25 GM in Sodium Chloride 0.9% 100 ML IVPB SCH ×2 (09:10→20:19)
[2020-01-25] MEDS: Clopidogrel Bisulfate 75 MG TAB PO SCH (09:10)
[2020-01-25] MEDS: Amiodarone 200 MG TAB PO SCH (09:11)
[2020-01-25] MEDS: Sevelamer Carbonate 800 MG TAB PO SCH ×3 (09:11→17:50)
--- NOTE | 2020-01-25 11:03 | PRG ---
DATE OF SERVICE: 01/25/2020 SUBJECTIVE: Mr. Case is a 74-year-old white male with ESRD and was admitted for cellulitis. He is currently on IV antibiotics. Wound care has evaluated and addressed the patient's cellulitis. He also received extra hemodialysis due to his CHF and shortness of breath. He tolerated shortened treatment of dialysis yesterday. No other complaints today. No worsening shortness of breath. OBJECTIVE: VITAL SIGNS: Blood pressure 111/65, heart rate 82, respiratory rate 18, O2 saturation 100%, and temperature 97.4. GENERAL: The patient is noted to be awake, alert, comfortable, not in overt distress. SKIN: Adequate turgor. HEENT: He has a slightly pale conjunctivae. Anicteric sclerae. No neck mass. No carotid bruits. No JVD. CHEST: No deformities. LUNGS: Decreased breath sounds. HEART: Normal sinus rhythm. No murmur. No gallops. No rubs. ABDOMEN: Globular, soft, nontender. No masses. EXTREMITIES: No edema. No deformities. MEDICATIONS: Medications of January 25, 2020, was reviewed. LABORATORY DATA: Laboratories of January 25, 2020; white count 13.9, hemoglobin 9.6. Sodium 136, potassium 4.1, chloride 99, carbon dioxide 23, BUN 57, creatinine 5.96, calcium is 10.8, phosphorus is 7 and PTH 715.9. ASSESSMENT AND PLAN: 1. Hyperphosphatemia. We will increase Renvela from 800 to 1600 mg p.o. t.i.d. 2. Secondary hyperparathyroidism. Start calcitriol 0.25 mcg tablet daily. 3. End-stage renal disease, stable. We will continue current Sunday, Sunday, and Sunday hemodialysis regimen. Again, fluid removal as tolerated. 4. Cellulitis, on IV antibiotics. If no clinical improvement, we may need to consider a biopsy of his skin lesion of the lower leg. Job ID: [id number]
[2020-01-25] MEDS ORDERED: Sevelamer Carbonate 800 MG TAB PO SCH (12:00)
--- NOTE | 2020-01-25 14:52 | RAD ---
EXAM: Single view of the chest HISTORY: Shortness of breath COMPARISON: 01/24/2020 FINDINGS: Single view of the chest shows an enlarged but stable cardiomediastinal silhouette. Patien t is status post aortic valve repair. The pacemaker is unchanged in position. The dialysis catheter is unchanged in position. There appears be a small right pleural effusion with adjacent atelectasis versus infiltrate. The bones are unremarkable IMPRESSION: Right pleural effusion with adjacent atelectasis versus infiltrate
[2020-01-25] MEDS ORDERED: Docusate 100 MG CAP PO PRN (16:06)
--- NOTE | 2020-01-25 16:08 | PDOC.HOSPP ---
- Subjective Subjective: Seen and examined. Patient doing about the same. Afebrile. Leg wounds do not look significantly better or worse. In the afternoon he did have some mild shortness of breath and chest x-ray did demonstrate atelectasis. Have ordered incentive spirometry and recommended Q1 hour while awake. Patient is on broad- spectrum antibiotics that have coverage for healthcare associated pneumonia, these antibiotics are helping with the lower extremity cellulitis. We will ask for input from infectious disease. - Objective Vital Signs & Weight: Vital Signs (12 hours) Temp Pulse Resp BP BP Pulse Ox 01/25/20 15:13 97.5 F L 81 19 109/62 100 01/25/20 11:53 98.0 F 80 17 111/72 100 01/25/20 07:19 97.4 F L 80 18 111/65 100 Weight Admit Weight 187 lb 1.6 oz Weight 185 lb 6.4 oz I&O: 01/24/20 01/25/20 01/26/20 06:59 06:59 06:59 Intake Total 480 720 Output Total 1800 3000 Balance -1320 -2280 Result Diagrams: 01/25/20 04:26 01/25/20 04:26 Radiology Reviewed by me: Yes Hospitalist ROS - Review of Systems All other systems reviewed; all pertinent +/- noted in HPI/Subj - Medication Medications: Active Medications Generic Name Dose Route Start Last Admin Trade Name Freq PRN Reason Stop Dose Admin Hydrocodone Bitart/Acetaminophen 1 tab 01/23/20 15:48 01/25/20 00:15 [place] 5/325 PO 1 tab Q4H PRN Administration Moderate Pain (4-6) Amiodarone HCl 200 mg 01/24/20 09:00 01/25/20 09:11 Cordarone PO 200 mg DAILY OLENA Administration Aspirin 81 mg 01/23/20 21:00 01/24/20 21:50 Aspirin Chewable PO 81 mg HS OLENA Administration Clopidogrel Bisulfate 75 mg 01/24/20 09:00 01/25/20 09:10 Plavix PO Not Given DAILY OLENA Epoetin Danielito-epbx 7,500 unit 01/24/20 10:00 01/24/20 10:53 Retacrit SC 7,500 unit Q7D OLENA Administration Piperacillin Sod/Tazobactam 100 mls @ 200 mls/hr 01/23/20 21:00 01/25/20 09: 10 Sod 2.25 gm/ Sodium Chloride IVPB 100 mls Q12HR OLENA Administration Metoprolol Succinate 12.5 mg 01/23/20 21:00 01/24/20 21:50 Toprol Xl PO 12.5 mg HS OLENA Administration Pantoprazole Sodium 40 mg 01/24/20 09:00 01/25/20 09:11 Protonix PO 40 mg DAILY OLENA Administration Rosuvastatin Calcium 10 mg 01/23/20 21:00 01/24/20 21:49 Crestor PO 10 mg HS OLENA Administration Sevelamer Carbonate 1,600 mg 01/25/20 12:00 01/25/20 11:59 Renvela PO 1,600 mg TID-WM OLENA Administration - Exam General Appearance: NAD, awake alert Eye: PERRL ENT: normocephalic atraumatic, moist mucosa Neck: supple, symmetric Heart: no gallops, no rubs, normal peripheral pulses, murmur present () Respiratory: no rales, no ronchi, normal chest expansion, wheezes (few faint lower lung leos) Gastrointestinal: soft, non-tender, no guarding, no rigidity Extremities: 1+ LE edema Skin: no rashes Skin - other findings: Extensive bilateral LE leg bruising with mild cellulitic changes. Foul smel Neurological: cranial nerve grossly intact, no focal deficits Musculoskeletal: generalized weakness Psychiatric: normal affect, A&O x 3 Hosp A/P (1) Cellulitis, leg Code(s): L03.119 - CELLULITIS OF UNSPECIFIED PART OF LIMB Status: Acute (2) Leg pain Status: Acute (3) Vasculitis Code(s): I77.6 - ARTERITIS, UNSPECIFIED Status: Acute (4) Aortic stenosis Code(s): I35.0 - NONRHEUMATIC AORTIC (VALVE) STENOSIS Status: Chronic (5) BPH (benign prostatic hyperplasia) Code(s): N40.0 - BENIGN PROSTATIC HYPERPLASIA WITHOUT LOWER URINRY TRACT SYMP Status: Chronic (6) CAD (coronary artery disease) Code(s): I25.10 - ATHSCL HEART DISEASE OF [place] CORONARY ARTERY W/O ANG PCTRS Status: Chronic (7) Chronic respiratory failure with hypoxia Code(s): J96.11 - CHRONIC RESPIRATORY FAILURE WITH HYPOXIA Status: Chronic (8) End stage renal disease on dialysis Code(s): N18.6 - END STAGE RENAL DISEASE; Z99.2 - DEPENDENCE ON RENAL DIALYSIS Status: Chronic (9) HTN (hypertension) Code(s): I10 - ESSENTIAL (PRIMARY) HYPERTENSION Status: Chronic (10) Systolic heart failure Code(s): I50.20 - UNSPECIFIED SYSTOLIC (CONGESTIVE) HEART FAILURE Status: Chronic Qualifiers: Heart failure chronicity: acute on chronic Qualified Code(s): I50.23 - Acute on chronic systolic (congestive) heart failure (11) Acute on chronic congestive heart failure Code(s): I50.9 - HEART FAILURE, UNSPECIFIED Status: Resolved (12) History of transcatheter aortic valve replacement (TAVR) Code(s): Z95.2 - PRESENCE OF PROSTHETIC HEART VALVE Status: Inactive - Plan Plan: infectious consultation, recommendations appreciated nephrology consultation, recommendations appreciated surgery consultation, recommendations appreciated a biopsy may be needed for definitive diagnosis of infection/ cellulitis versus vasculitis broad-spectrum IV antibiotics, de-escalate to culture and sensitivity is able blood culture would culture CXR from 01/24 with atelectasis, encourage IS Q1 hour while awake continue home medications as able HD per nephrology Replace electrolytes as needed blood pressure control blood sugar control G.I. prophylaxis DVT prophylaxis
[2020-01-25] MEDS: Rosuvastatin 10 MG TAB PO SCH (20:20)
[2020-01-25] MEDS: Aspirin Chewable 81 MG TAB PO SCH (20:20)
[2020-01-26] MEDS: HYDROcodone/Acetaminophen 5/325 mg Tablet PO PRN (03:21)
--- NOTE | 2020-01-26 07:50 | PRG ---
DATE OF SERVICE: 01/26/2020 SUBJECTIVE: Mr. Case is a 74-year-old white male, who was admitted for cellulitis. Over the last several days, he has been complaining of shortness of breath. He has received extra dialysis for fluid removal. However, chest x-ray did not show any overt CHF. He did have a right small pleural effusion. Concern is whether this shortness of breath might reflect underlying ischemia and/or intrinsic lung problem. OBJECTIVE: VITAL SIGNS: Blood pressure is currently noted at 115/57, heart rate 81, respiratory rate 18, temperature 98.9. GENERAL: The patient is awake, alert, comfortable, not in overt distress. SKIN: Adequate turgor. HEENT: He has a slightly pale conjunctivae. Anicteric sclerae. NECK: No neck mass. No carotid bruits. No JVD. CHEST: No deformities. LUNGS: Clear breath sounds. HEART: Normal sinus rhythm. No murmur. No gallops. No rubs. ABDOMEN: Globular and soft. Nontender. No masses. EXTREMITIES: Positive for trace edema. Positive for erythema of both extremities. MEDICATIONS: Medications of January 26, 2020, was reviewed. LABORATORY DATA: Laboratories of January 25, 2020; white count 13.9, hemoglobin 9.6. Sodium 136, potassium 4.1, chloride 99, carbon dioxide 23, BUN 57, creatinine 5.96, calcium is 10.8, phosphorus is 7. PTH 715.9. ASSESSMENT AND PLAN: 1. End-stage renal disease-continue Sunday, Sunday, and Sunday hemodialysis. Fluid removal as tolerated. 2. Hyperphosphatemia, continuing Renvela. 3. Secondary hyperparathyroidism. Calcitriol started at 0.25 mcg tab every other day due to the slightly higher calcium. 4. Shortness of breath, unclear etiology. This could be cardiac or pulmonary etiology. We will attempt to max out fluid removal with dialysis. 5. Cellulitis, on IV antibiotics. 6. Anemia, continuing weekly Epogen. We will recheck CBC and basic metabolic panel in the morning. Job ID: [id number]
[2020-01-26 08:41] LABS: Vancomycin, Random 15.5 ug/mL (See Comment)
[2020-01-26] MEDS ORDERED: Midodrine HCl 5 MG TAB PO SCH (09:00)
[2020-01-26] MEDS ORDERED: Calcitriol 0.25 MCG CAP PO SCH (09:00)
[2020-01-26] MEDS: Sevelamer Carbonate 800 MG TAB PO SCH ×3 (12:37→17:14)
[2020-01-26] MEDS: Clopidogrel Bisulfate 75 MG TAB PO SCH (12:51)
[2020-01-26] MEDS: Amiodarone 200 MG TAB PO SCH (12:51)
[2020-01-26] MEDS: Piperacillin/Tazobactam 2.25 GM in Sodium Chloride 0.9% 100 ML IVPB SCH ×2 (12:56→21:41)
[2020-01-26] MEDS ORDERED: Heparin 10,000 UNITS/ 10 ML VIAL ONE (13:04)
--- NOTE | 2020-01-26 13:36 | CON ---
DATE OF CONSULTATION: HISTORY OF PRESENT ILLNESS: Nahun Case is seen today at the request of the hospitalist who has admitted him. The patient is admitted to hospitalist service on 01/23/2020 for eschar in his lower extremities. These have been treated in the past as an outpatient. The patient is morbidly obese with 28 BMI. He has had a cephalic vein transposition fistula. On 08/12/2019, he had a right femoral vein Trialysis catheter. On 08/15/2019, he underwent a right IJ cuffed tunneled dialysis catheter and a central line. On 12/10/2019, he returned to the operating room for cephalic vein transposition fistula of right arm and ligation of the basilic outflow. He suffered a slight wound problem, requiring wound care in the right upper arm, but he has a patent fistula and is awaiting wound healing prior to beginning access this fistula. The patient has a cardiomyopathy with a defibrillator with TAVR procedure, performed by Dr. Deejay Lancaster in the recent past. The patient has chronic venous stasis disease and has wounds on his lower extremities. This hospitalization, he had a venogram on 01/23/2020, negative for DVT. PHYSICAL EXAMINATION: The patient has a right upper extremity dressing, which was removed. He has silver dressings and granulating wounds from his cephalic vein transposition fistula lateral to the wounds. He has circle vein fistula cephalic vein with a good thrill and bruit. In his lower extremities, the patient has eschars over his lower legs. They are clean without evidence of infection. There is no indication for debridement. There is no cellulitis. ASSESSMENT AND PLAN: 1. Wound in right upper extremity. We would continue wound care, normal saline, wet-to-dry dressings daily, washing with soap and water each day with dressing change. Can use silver or saline wet-to-dry dressing. Saline wet-to-dry dressings will help debride these, although either would be appropriate, perhaps could alternate per Wound Care. He has Home Health ordered and they would continue this. 2. Bilateral lower extremity posterior calf eschars. There is no evidence of infection. I would recommend continue wound care. He had bruising previously. These could represent complications from his renal failure or venous stasis disease. Currently, there is no indication for debridement. I will follow these as an outpatient. Again, he should be washed with soap and water daily to every 2-3 days with wound care, changing the dressings and washing these. I will follow him as an outpatient. I will see him as needed this hospitalization. Please call if necessary. The patient is ready for discharge. There is no evidence of infection currently. He can follow up as an outpatient for these. Job ID: [id number]
--- NOTE | 2020-01-26 15:30 | PDOC.HOSPP ---
- Subjective Subjective: Seen and examined while on hemodialysis. Patient states that is feeling better. Less short of breath. While laying flat it is worse. Otherwise improving on maximal medical therapy. His legs do not appear significantly better or worse. - Objective Vital Signs & Weight: Vital Signs (12 hours) Temp Pulse Resp BP Pulse Ox 01/26/20 12:00 96.9 F L 82 22 H 105/70 99 01/26/20 08:00 97.7 F 81 22 H 104/62 100 01/26/20 03:58 98.9 F 81 18 115/57 L Weight Admit Weight 187 lb 1.6 oz Weight 185 lb 6.4 oz I&O: 01/25/20 01/26/20 01/27/20 06:59 06:59 06:59 Intake Total 720 735 Output Total 3000 0 Balance -2280 735 Result Diagrams: 01/25/20 04:26 01/25/20 04:26 Radiology Reviewed by me: Yes Hospitalist ROS - Review of Systems All other systems reviewed; all pertinent +/- noted in HPI/Subj - Medication Medications: Active Medications Generic Name Dose Route Start Last Admin Trade Name Freq PRN Reason Stop Dose Admin Hydrocodone Bitart/Acetaminophen 1 tab 01/23/20 15:48 01/26/20 03:21 [place] 5/325 PO 1 tab Q4H PRN Administration Moderate Pain (4-6) Amiodarone HCl 200 mg 01/24/20 09:00 01/26/20 12:51 Cordarone PO 200 mg DAILY OLENA Administration Aspirin 81 mg 01/23/20 21:00 01/25/20 20:20 Aspirin Chewable PO 81 mg HS OLENA Administration Calcitriol 0.25 mcg 01/26/20 09:00 01/26/20 12:51 Rocaltrol PO 0.25 mcg Q2DAYS@0900 OLENA Administration Clopidogrel Bisulfate 75 mg 01/24/20 09:00 01/26/20 12:51 Plavix PO 75 mg DAILY OLENA Administration Epoetin Danielito-epbx 7,500 unit 01/24/20 10:00 01/24/20 10:53 Retacrit [place] 7,500 unit Q7D OLENA Administration Piperacillin Sod/Tazobactam 100 mls @ 200 mls/hr 01/23/20 21:00 01/26/20 12: 56 Sod 2.25 gm/ Sodium Chloride IVPB 100 mls Q12HR OLENA Administration Metoprolol Succinate 12.5 mg 01/23/20 21:00 01/25/20 20:20 Toprol Xl PO 12.5 mg HS OLENA Administration Midodrine 5 mg 01/26/20 09:00 01/26/20 12:58 Proamatine PO 5 mg MoWeFr OLENA Administration Pantoprazole Sodium 40 mg 01/24/20 09:00 01/26/20 12:51 Protonix PO 40 mg DAILY OLENA Administration Rosuvastatin Calcium 10 mg 01/23/20 21:00 01/25/20 20:20 Crestor PO 10 mg HS OLENA Administration Sertraline HCl 50 mg 01/26/20 09:00 01/26/20 12:51 Zoloft PO 50 mg DAILY OLENA Administration Sevelamer Carbonate 1,600 mg 01/25/20 12:00 01/26/20 12:51 Renvela PO 1,600 mg TID-WM OLENA Administration - Exam General Appearance: NAD, awake alert Eye: anicteric sclera ENT: normocephalic atraumatic, moist mucosa Neck: supple, symmetric Heart: no gallops, no rubs, irregular, murmur present Respiratory: no rales, no ronchi, normal chest expansion, wheezes (faint lower lung leos) Gastrointestinal: soft, non-tender, no guarding, no rigidity Extremities: 1+ LE edema Skin - other findings: Extensive LE wounds/ bruising - see wound care pictures for details Neurological: cranial nerve grossly intact, no focal deficits Musculoskeletal: generalized weakness Psychiatric: normal behavior, A&O x 3, flat affect Hosp A/P (1) Cellulitis, leg Code(s): L03.119 - CELLULITIS OF UNSPECIFIED PART OF LIMB Status: Acute (2) Leg pain Status: Acute (3) Vasculitis Code(s): I77.6 - ARTERITIS, UNSPECIFIED Status: Acute (4) Aortic stenosis Code(s): I35.0 - NONRHEUMATIC AORTIC (VALVE) STENOSIS Status: Chronic (5) BPH (benign prostatic hyperplasia) Code(s): N40.0 - BENIGN PROSTATIC HYPERPLASIA WITHOUT LOWER URINRY TRACT SYMP Status: Chronic (6) CAD (coronary artery disease) Code(s): I25.10 - ATHSCL HEART DISEASE OF [place] CORONARY ARTERY W/O ANG PCTRS Status: Chronic (7) Chronic respiratory failure with hypoxia Code(s): J96.11 - CHRONIC RESPIRATORY FAILURE WITH HYPOXIA Status: Chronic (8) End stage renal disease on dialysis Code(s): N18.6 - END STAGE RENAL DISEASE; Z99.2 - DEPENDENCE ON RENAL DIALYSIS Status: Chronic (9) HTN (hypertension) Code(s): I10 - ESSENTIAL (PRIMARY) HYPERTENSION Status: Chronic (10) Systolic heart failure Code(s): I50.20 - UNSPECIFIED SYSTOLIC (CONGESTIVE) HEART FAILURE Status: Chronic Qualifiers: Heart failure chronicity: acute on chronic Qualified Code(s): I50.23 - Acute on chronic systolic (congestive) heart failure (11) Acute on chronic congestive heart failure Code(s): I50.9 - HEART FAILURE, UNSPECIFIED Status: Resolved (12) History of transcatheter aortic valve replacement (TAVR) Code(s): Z95.2 - PRESENCE OF PROSTHETIC HEART VALVE Status: Inactive - Plan Plan: infectious consultation, recommendations appreciated nephrology consultation, recommendations appreciated surgery consultation, recommendations appreciated a biopsy may be needed for definitive diagnosis of infection/ cellulitis versus vasculitis broad-spectrum IV antibiotics, de-escalate to culture and sensitivity as able blood culture no growth to date Right arm - presumptive pseudomonas CXR from 01/24 with atelectasis, encourage IS Q1 hour while awake continue home medications as able HD per nephrology Replace electrolytes as needed blood pressure control blood sugar control G.I. prophylaxis DVT prophylaxis
[2020-01-26] MEDS ORDERED: guaiFENesin ER 600 MG TAB PO PRN (16:29)
[2020-01-26] MEDS: Ondansetron ODT 4 MG TAB PO PRN (21:32)
--- NOTE | 2020-01-26 22:09 | CON ---
DATE OF CONSULTATION: 01/26/2020 REASON FOR CONSULTATION: Skin abnormality associated with end-stage renal disease. HISTORY OF PRESENT ILLNESS: A 74-year-old patient who has a history of hypertension and end-stage renal disease. According to the patient, this is a work related adverse reaction to reported lead poisoning or mercury poisoning. He used to work in [employer]. Anyways, he has been dialyzed through an AV fistula and then a tunneled cath. Reportedly the area became infected and he has a tunneled catheter right now in the IJ position and over the past month, he developed those necrotic skin areas along the lower extremities that are moderately painful, some of them have necrotic blisters and has not had any headaches. No sore throat, odynophagia, dysphagia. No dyspnea or cough and no abdominal pain. He has also an area of necrotic skin changes in the penile glans and does not have urine output. PAST MEDICAL HISTORY: Includes hypertension, hyperlipidemia, end-stage renal disease presumably due to lead intoxication or mercury intoxication, which is a work related injury according to patient. He has had aortic valve stenosis, managed with TAVR here in town, coronary disease, prostate cancer in remission, hypothyroidism. He has had an AICD placed and ischemic cardiomyopathy. ALLERGIES: NONE. SOCIAL HISTORY: Retired. Lives I believe in [place] with his . Never smoker. No alcoholic beverage use. MEDICATIONS: 1. Albuterol. 2. Amiodarone. 3. Aspirin. 5. Plavix. 6. Docusate. 7. Epoetin. 8. Hydrocodone. 9. Metoprolol. 10. Midodrine. 11. Ondansetron. 12. Pantoprazole. 13. Zosyn. 14. Rosuvastatin. 15. Zoloft. 16. Sevelamer. 17. Vancomycin. FAMILY HISTORY: Noncontributory. PHYSICAL EXAMINATION: CURRENT VITAL SIGNS: T-max 98.9, blood pressure 101/56, pulse 80, respirations 22, O2 saturation 97 on 2 L nasal cannula. SKIN: Remarkable for the areas of skin necrosis in the lower extremities. There is induration of the of the skin around those areas and within the areas of necrosis compared with the areas that are not involved by the ischemic process. The areas of skin necrosis are kind of irregularly-shaped and spread out from those necrotic blisters. He also has areas of similar superficial skin necrosis around the penile glans right side and the tip of the right hallux skin. The right and left legs are affected similarly by this process. He has a tunneled catheter in the right IJ position. He also has an AV fistula wound, which reportedly became infected and had to be debrided. He is chronically ill appearing, but in no acute distress. HEENT: Ocular movements are conjugate. Sclerae white. Pupils are equal. Oral cavity with still quite a few teeth in place with few ones missing. NECK: Supple without jugular vein distention. LUNGS: Symmetric, clear breath sounds. HEART: S1 and S2. Regular rate. No S3 or S4. ABDOMEN: Soft, not distended or tender. No ascites. No bladder distention. I could not feel any popliteal or dorsalis pedis pulses. EXTREMITIES: He has 2+ edema in lower extremities. NEUROLOGIC: He is awake, oriented and follows commands. Speech is normal. Orientation is normal. Pleasant. LABORATORY DATA: Sodium 136, creatinine 5.96, calcium was 10.8, phosphorus 10.0. Looking back to his test, his phosphorus was elevated in July, it had been normal before then. His calcium was elevated up until August 2019, then it kind of normalized and now is back up on January. His PTH is elevated, so he must have secondary hyperparathyroidism. ASSESSMENT: 1. End-stage renal disease presumably secondary to lead or mercury poisoning, which appears to have been a work related problem. End-stage renal disease on hemodialysis at the moment. 2. Hypercalcemia with evidence of secondary hyperparathyroidism. 3. Hyperphosphatemia. 4. Necrotic skin lesions in lower extremities, which have the clinical characteristics suggestive of calciphylaxis. DISCUSSION: Calciphylaxis is commonly seen in patients with end-stage renal disease, who have secondary hyperparathyroidism, hypercalcemia and hyperphosphatemia, and it occurs due to deposition of calcium in the medial layer of small arteries and the skin , so it is not primarily an infectious process, but an issue of microvascular calcification or obstruction. The management is correcting the calcium phosphorus product by addressing the cause of the hypercalcemia and hyperphosphatemia. He may need parathyroidectomy, if he is felt to be eligible for it. Calciphylaxis is somewhat refractory process in this case. He does have overt hypercalcemia and hyperphosphatemia, which with correction might lead to improvement of the phenomenon. Job ID: [id number] [facility]
[2020-01-26] MEDS: Rosuvastatin 10 MG TAB PO SCH (22:29)
[2020-01-26] MEDS: Aspirin Chewable 81 MG TAB PO SCH (22:29)
[2020-01-27 04:46] LABS: #Lymphocytes 1.7 thou/uL (1.20-3.40); #Monocytes 0.7 thou/uL (0.11-0.59); #Neutrophils 13.7 thou/uL (1.40-6.50); %Basophils 0.2 % (0.0-1.0); %Eosinophils 0.2 % (0.0-10.0); %Lymphocytes 10.2 % (21.0-51.0); %Neutrophils 85.4 % (42.0-75.0); Hemoglobin 10.1 g/dL (14.0-18.0); Mean Corpuscular HGB CONC 29.6 g/dL (32.0-36.0); Mean Corpuscular Hemoglobin 28.7 pg (27.0-31.0); Mean Corpuscular Volume 97.2 fL (78.0-98.0); Mean Platelet Volume 8.1 fL (7.4-10.4); Platelet Count 191 thou/uL (130-400); RBC Distribution Width 17.5 % (11.5-14.5); Red Blood Cell (RBC) Count 3.53 mill/uL (4.70-6.10); White Blood Cell (WBC) Count 16.1 thou/uL (4.8-10.8)
[2020-01-27 05:07] LABS: Anion Gap 21 mmol/L (10-20); BUN (Urea Nitrogen) 57 mg/dL (8.4-25.7); Calc. Creatinine Clearance 13 mL/min (70-130); Calcium 11.4 mg/dL (7.8-10.44); Carbon Dioxide 24 mmol/L (23-31); Chloride 98 mmol/L (98-107); Estimated GFR-MDRD 9; Glucose 98 mg/dL (83-110); Potassium 5.2 mmol/L (3.5-5.1); Sodium 138 mmol/L (136-145)
[2020-01-27] MEDS: Ondansetron ODT 4 MG TAB PO PRN (07:38)
[2020-01-27] MEDS ORDERED: Midodrine HCl 5 MG TAB PO SCH ×2 (08:25→09:00)
--- NOTE | 2020-01-27 09:01 | PRG ---
DATE OF SERVICE: 01/27/2020 SERVICE: Renal Medicine. SUBJECTIVE: Mr. Case is a 74-year-old white male with ESRD, who was initially admitted for possible cellulitis of both legs. We were also consulted for his management of his ESRD as well as maintenance hemodialysis. Surgery and ID has evaluated the leg lesion and feels that this is likely less of an infection. Possibility of calciphylaxis remains. No other complaints today. He felt depressed yesterday and he was started on Zoloft. No complaints of chest pain or shortness of breath. He did get extra dialysis over the weekend and his shortness of breath is somewhat improved. OBJECTIVE: VITAL SIGNS: Blood pressure is 116/56, heart rate 80, respiratory rate 18, temperature 97.9, and O2 saturation 98%. GENERAL: The patient is awake, alert, comfortable, not in overt distress. SKIN: Adequate turgor. HEENT: He has pinkish conjunctivae. Anicteric sclerae. NECK: No neck mass. No carotid bruits. No JVD. CHEST: No deformities. LUNGS: Decreased breath sounds. HEART: Normal sinus rhythm. No murmurs. No gallops. No rubs. ABDOMEN: Globular, soft, and nontender. No masses. EXTREMITIES: Positive for leg wound dressing. MEDICATIONS: Medications of January 27, 2020, were reviewed. LABORATORY DATA: Laboratories of January 27, 2020; white count 16.1, hemoglobin 10.1. Sodium 138, potassium 5.2, chloride 93, carbon dioxide 24, BUN 57, creatinine 6 , and calcium is 11.4. PTH is 715. ASSESSMENT AND PLAN: 1. End-stage renal disease. Continue current Sunday, Sunday, and Sunday hemodialysis regimen. Fluid removal is being attempted to be removed - maximal removal. Shortness of breath has improved. No indication for any emergent dialysis. 2. Chronic leg wound lesion - as per ID and General Surgery less likely from infectious process, there is consideration for calciphylaxis. The other possibility this may be underlying vasculitis with the patient. 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 We will do an ANCA titers. If the ANCA is elevated, I will probably start him on some immunosuppressive regimen such as steroids. If the ANCA is within normal, we will make a presumptive diagnosis of calciphylaxis and consider starting him on sodium thiosulfate 25 g IV every hemodialysis. 3. Depression. The patient has been started on Zoloft. 4. Shortness of breath, clinically improving. He is tolerating the said dialysis regimen. Job ID: [id number] MTDD
[2020-01-27] MEDS: Sevelamer Carbonate 800 MG TAB PO SCH ×3 (12:36→17:58)
[2020-01-27] MEDS: Clopidogrel Bisulfate 75 MG TAB PO SCH (12:37)
[2020-01-27] MEDS: Amiodarone 200 MG TAB PO SCH (12:37)
[2020-01-27] MEDS: Piperacillin/Tazobactam 2.25 GM in Sodium Chloride 0.9% 100 ML IVPB SCH ×2 (12:38→21:52)
[2020-01-27 13:23] VITALS: TEMP 97.3
--- NOTE | 2020-01-27 15:36 | PDOC.HOSPP ---
- Subjective Subjective: Seen and examined. Sitting up in the chair, breathing comfortably on room air. No new complaints. Infectious disease specialist on the case. Lower extremity wounds may be Calciphylaxis, though WBC count has uptrended to 16,000. No new complaints today. - Objective Vital Signs & Weight: Vital Signs (12 hours) Temp Pulse Resp BP BP Pulse Ox 01/27/20 11:15 97.3 F L 80 16 136/99 H 100 01/27/20 07:26 97.9 F 80 16 116/56 L 98 01/27/20 04:00 97.7 F 78 18 106/71 99 Weight Admit Weight 187 lb 1.6 oz Weight 185 lb 6.4 oz I&O: 01/26/20 01/27/20 01/28/20 06:59 06:59 06:59 Intake Total 735 1250 Output Total 0 200 Balance 735 1050 Result Diagrams: 01/27/20 04:12 01/27/20 04:12 Radiology Reviewed by me: Yes Hospitalist ROS - Review of Systems All other systems reviewed; all pertinent +/- noted in HPI/Subj - Medication Medications: Active Medications Generic Name Dose Route Start Last Admin Trade Name Freq PRN Reason Stop Dose Admin Hydrocodone Bitart/Acetaminophen 1 tab 01/23/20 15:48 01/26/20 03:21 [place] 5/325 PO 1 tab Q4H PRN Administration Moderate Pain (4-6) Amiodarone HCl 200 mg 01/24/20 09:00 01/27/20 12:37 Cordarone PO Not Given DAILY OLENA Aspirin 81 mg 01/23/20 21:00 01/26/20 22:29 Aspirin Chewable PO 81 mg HS OLENA Administration Calcitriol 0.25 mcg 01/26/20 09:00 01/26/20 12:51 Rocaltrol PO 0.25 mcg Q2DAYS@0900 OLENA Administration Clopidogrel Bisulfate 75 mg 01/24/20 09:00 01/27/20 12:37 Plavix PO Not Given DAILY OLENA Epoetin Danielito-epbx 7,500 unit 01/24/20 10:00 01/24/20 10:53 Retacrit SC 7,500 unit Q7D OLENA Administration Guaifenesin 600 mg 01/26/20 16:29 01/26/20 17:14 Mucinex PO 600 mg Q12H PRN Administration Cough Piperacillin Sod/Tazobactam 100 mls @ 200 mls/hr 01/23/20 21:00 01/27/20 12: 38 Sod 2.25 gm/ Sodium Chloride IVPB Not Given Q12HR OLENA Metoprolol Succinate 12.5 mg 01/23/20 21:00 01/26/20 22:29 Toprol Xl PO 12.5 mg HS OLENA Administration Midodrine 5 mg 01/27/20 09:00 01/27/20 10:08 Proamatine PO 5 mg DAILY OLENA Administration Ondansetron HCl 4 mg 01/23/20 15:48 01/27/20 07:38 Zofran Odt PO 4 mg Q6H PRN Administration Nausea/Vomiting Pantoprazole Sodium 40 mg 01/24/20 09:00 01/27/20 12:37 Protonix PO Not Given DAILY OLENA Rosuvastatin Calcium 10 mg 01/23/20 21:00 01/26/20 22:29 Crestor PO 10 mg HS OLENA Administration Sertraline HCl 50 mg 01/26/20 09:00 01/27/20 12:38 Zoloft PO Not Given DAILY OLENA Sevelamer Carbonate 1,600 mg 01/25/20 12:00 01/27/20 12:48 Renvela PO 1,600 mg TID-WM OLENA Administration - Exam General Appearance: NAD, awake alert Eye: PERRL ENT: normocephalic atraumatic, moist mucosa Neck: supple, symmetric, no lymphadenopathy Heart: no murmur, no gallops, no rubs, normal peripheral pulses Respiratory: CTAB, no wheezes, no rales, no ronchi, normal chest expansion, no tachypnea Gastrointestinal: soft, non-tender, no guarding, no rigidity Extremities: 2+ LE edema Skin: no rashes Skin - other findings: Extensive bilateral LE wounds - see wound care for details. Neurological: cranial nerve grossly intact, no focal deficits Musculoskeletal: generalized weakness Psychiatric: A&O x 3 Hosp A/P (1) Cellulitis, leg Code(s): L03.119 - CELLULITIS OF UNSPECIFIED PART OF LIMB Status: Acute (2) Leg pain Status: Acute (3) Vasculitis Code(s): I77.6 - ARTERITIS, UNSPECIFIED Status: Acute (4) Aortic stenosis Code(s): I35.0 - NONRHEUMATIC AORTIC (VALVE) STENOSIS Status: Chronic (5) BPH (benign prostatic hyperplasia) Code(s): N40.0 - BENIGN PROSTATIC HYPERPLASIA WITHOUT LOWER URINRY TRACT SYMP Status: Chronic (6) CAD (coronary artery disease) Code(s): I25.10 - ATHSCL HEART DISEASE OF [place] CORONARY ARTERY W/O ANG PCTRS Status: Chronic (7) Chronic respiratory failure with hypoxia Code(s): J96.11 - CHRONIC RESPIRATORY FAILURE WITH HYPOXIA Status: Chronic (8) End stage renal disease on dialysis Code(s): N18.6 - END STAGE RENAL DISEASE; Z99.2 - DEPENDENCE ON RENAL DIALYSIS Status: Chronic (9) HTN (hypertension) Code(s): I10 - ESSENTIAL (PRIMARY) HYPERTENSION Status: Chronic (10) Systolic heart failure Code(s): I50.20 - UNSPECIFIED SYSTOLIC (CONGESTIVE) HEART FAILURE Status: Chronic Qualifiers: Heart failure chronicity: acute on chronic Qualified Code(s): I50.23 - Acute on chronic systolic (congestive) heart failure (11) Acute on chronic congestive heart failure Code(s): I50.9 - HEART FAILURE, UNSPECIFIED Status: Resolved (12) History of transcatheter aortic valve replacement (TAVR) Code(s): Z95.2 - PRESENCE OF PROSTHETIC HEART VALVE Status: Inactive - Plan Plan: infectious consultation, recommendations appreciated nephrology consultation, recommendations appreciated surgery consultation, recommendations appreciated LE wounds may be calciphylaxis - will need outpatient follow up though no acute surgery or biopsy recommended at this time broad-spectrum IV antibiotics, de-escalate to culture and sensitivity as able per ID blood culture no growth to date Right arm - pseudomonas aeruginosa - infection vs colonization CXR from 01/24 with atelectasis, encourage IS Q1 hour while awake continue home medications as able HD per nephrology Replace electrolytes as needed blood pressure control blood sugar control G.I. prophylaxis DVT prophylaxis
[2020-01-27] MEDS: Aspirin Chewable 81 MG TAB PO SCH (21:52)
[2020-01-27] MEDS: Rosuvastatin 10 MG TAB PO SCH (21:52)
[2020-01-28] MEDS: Ondansetron ODT 4 MG TAB PO PRN (01:33)
[2020-01-28 06:39] VITALS: BP 112/62
[2020-01-28] MEDS ORDERED: Cinacalcet HCl 30 MG TAB PO SCH (08:00)
--- NOTE | 2020-01-28 22:33 | DIS ---
DATE OF ADMISSION: 01/23/2020 DATE OF DISCHARGE: 01/28/2020 REASON FOR HOSPITALIZATION: Leg wounds. PROCEDURES PERFORMED AND TREATMENTS RENDERED: Mr. Case is a very unfortunate 74-year-old gentleman who is very chronically ill. 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 When I discussed the case with Dr. Bird, there is also mention from Dr. Bird that he might have had Yves's granulomatosis and pulmonary vasculitis. The patient was admitted for leg wounds, he was septic requiring broad-spectrum IV antibiotics with vancomycin and Zosyn. Because of the severity of these leg infections, I consulted the Infectious Disease specialist , Dr. Heard, please see full consultation and progress notes for details. Because of the extent of the infection from these legs, I consulted a surgeon, Dr. Fcuhs, please see full consultation notes and progress notes for details. There were differing opinions on the ultimate cause of these leg wounds. They were distinctly infected when I first evaluated the patient on 01/24/2020. They had a foul smelling odor and purulent discharge. The patient's WBC count was elevated and trending up from a value of 10,000 up to 16,000 on 01/27/2020. The patient was afebrile throughout his hospitalization. The patient had hemodialysis appropriately throughout his hospitalization. Pseudomonas was found to be growing in a bacterial culture from the arm. Going back to the patient's legs and differing opinions, by the time the patient had been evaluated by surgery and Infectious Disease, he has already had 3 days of broad-spectrum antibiotic coverage and the legs were doing much better. 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 Specialist infectious disease and surgery believed this may be calciphylaxis, which is a known complication of long-standing hemodialysis. However, when I discussed this with Dr. Bird, the patient has not been on hemodialysis long-term and so in Dr. Bird's mind, this is a less likely diagnosis. 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 Attempts were made to resuscitate the patient and these were unsuccessful and he from cardiopulmonary arrest. The patient expiring from cardiopulmonary arrest, unfortunately there is a wide differential diagnosis on what could have ultimately caused his demise. The patient was chronically ill with known leg wounds and sepsis, though this clinically did seem to be improving. The patient has a known reduced ejection fraction and that does comes from his coronary artery disease and ischemic cardiomyopathy and a possibility of a cardiac event such as acute acute myocardial infarction is possible. Efforts were made concerning DVT prophylaxis and he was on SCDs throughout his hospitalization. Due to the extensive bruising and vascular nature of his lower extremity wounds , he was considered elevated risk for anticoagulation such as heparin or Lovenox. The patient was continued on his Plavix and aspirin combination for CAD. A pulmonary embolism is unlikely for this patient. Throughout my course of taking care of the patient, he had no point to complain of any chest pain, and he was on continuous telemetry monitoring throughout his hospitalization, and there were no acute rhythm changes to suggest any ischemia or other injury to the heart. I called the patient's and gave her the news myself that unfortunately the patient has . CONDITION ON DISCHARGE: . DISCHARGE MEDICATIONS: Not applicable. SPECIFIC INSTRUCTIONS FOR THE PATIENT'S FAMILY: 1. The patient's body to be transferred to mortuary of family selection. 2. Medical records can be contacted for all future matters requiring medical record documents. TIME SPENT: Greater than 45 minutes spent coordinating care and discharge process. Job ID: [id number] MTDD
--- NOTE | 2020-01-29 10:10 | PQF ---
CLINICAL DOCUMENTATION CLARIFICATION FORM: Dear : Jose M Miranda Date / Time: _01/29/2020__ Please exercise your independent, professional judgment in responding to the clarification form. Clinical indicators are provided on the bottom of this form for your review Diagnosis: ____Sepsis Present on Admission (POA): [XX ] Yes [ ] No [ ] Unable to determine Physician Signature: Date/Time: For continuity of documentation, please document condition throughout progress notes and discharge summary. Thank You. To be completed by CDI/Coding staff for physician review: Present Clinical Indicators - Signs / Symptoms / Labs Results and Location in Medical Record [x ] The patient was chronically ill with known leg wounds and sepsis DS, 01/22 , Ruben Salguero DO [x ] Temp: 97.5L on 01/23, 97.5L on 01/24 Vital signs report [x ] WBC:11.7H on 01/22, 13.9H on 01/24, 16.1H on 01/26 Laboratory report [x ] Blood pressure was 92/72 H&P, 01/22, Paty Conn MD Present Risk Factors Results and Location in Medical Record [x ] Lower extremity cellulitis H&P, 01/22, Paty Conn MD [x ] ESRD H&P, 01/22, Paty Conn MD Present Treatments Results and Location in Medical Record [x ] Cefepime.IV 01/22 [ x] Zosyn.IV 01/22 CDS/Office Automation Clerk Signature: Diogo Bateman Phone #: [phone] Date/Time:_01/29/2020 This is a permanent part of the Medical Record [facility]
[2020-01-29 15:13] LABS: Cytoplasmic (C-ANCA) <1:20 titer (Neg:<1:20); Myeloperoxidase AutoAbs <9.0 U/mL (0.0-9.0); Perinuclear (P-ANCA) <1:20 titer (Neg:<1:20); Proteinase-3 AutoAbs 9.4 U/mL (0.0-3.5)
--- NOTE | 2020-01-30 09:37 | PRG ---
DATE OF SERVICE: 01/28/2020 BRIEF PATIENT HISTORY: 74-year-old male with past medical history of end-stage renal disease, who was on telemetry earlier this morning when his QRS began widening and he was found to be unresponsive. CPR was started and the patient was coded for 20 minutes. The patient received a total of 3 mL of epinephrine, 1 amp of bicarb, 2 g of calcium chloride, 300 mg amiodarone and 150 mg of amiodarone, and was shocked twice. The patient was intubated with a 7.5 ET tube and breath sounds were bilateral; however, the patient began having pink frothy followed by blood from the ET tube, which was not a reassuring sign. At the time of at 7:18 a.m., the patient did not have a pulse. PHYSICAL EXAMINATION: HEENT: Pupils fixed and dilated. CARDIOLOGY: No pulse. No auscultated heart sounds. RESPIRATORY: No spontaneous respirations. NEUROLOGIC: No withdrawal to painful stimuli. TIME OF : 01/28/2020 at 0718 hours. Okay to remove all lines. Attending addendum: I was present. Job ID: [id number] MTDD
== END 2020-01-28 07:18 | disposition expired | DRG 871 ==
LOC: ERS 12:58 → 2NO 15:55
PROVIDERS: ADMIT Internal Medicine; ATTEND Internal Medicine
PROC: 5A1D70Z Performance of Urinary Filtration, Intermittent, Less than 6 Hours Per Day (ICD-10-PCS; 2020-01-23)
PROC: 0BH17EZ Insertion of Endotracheal Airway into Trachea, Via Natural or Artificial Opening (ICD-10-PCS; principal; 2020-01-24)
PROC: 5A1D70Z Performance of Urinary Filtration, Intermittent, Less than 6 Hours Per Day (ICD-10-PCS; 2020-01-24)
PROC: 5A1D70Z Performance of Urinary Filtration, Intermittent, Less than 6 Hours Per Day (ICD-10-PCS; 2020-01-26)
PROC: 5A12012 Performance of Cardiac Output, Single, Manual (ICD-10-PCS; 2020-01-28)
DX: A41.9 Sepsis, unspecified organism (principal); I21.9 Acute myocardial infarction, unspecified; N18.6 End stage renal disease; I50.23 Acute on chronic systolic (congestive) heart failure; L03.116 Cellulitis of left lower limb; I13.2 Hypertensive heart and chronic kidney disease with heart failure and with stage 5 chronic kidney disease, or end stage renal disease; E87.2 Acidosis; J96.11 Chronic respiratory failure with hypoxia; N25.81 Secondary hyperparathyroidism of renal origin; L03.115 Cellulitis of right lower limb; I25.10 Atherosclerotic heart disease of native coronary artery without angina pectoris; N40.0 Benign prostatic hyperplasia without lower urinary tract symptoms; M10.9 Gout, unspecified; E83.39 Other disorders of phosphorus metabolism; D63.1 Anemia in chronic kidney disease; I95.89 Other hypotension; I25.5 Ischemic cardiomyopathy; E03.9 Hypothyroidism, unspecified; E83.52 Hypercalcemia; E78.00 Pure hypercholesterolemia, unspecified; I46.9 Cardiac arrest, cause unspecified; Z91.14 Patient's other noncompliance with medication regimen; Z99.81 Dependence on supplemental oxygen; Z85.46 Personal history of malignant neoplasm of prostate; Z79.01 Long term (current) use of anticoagulants; Z95.2 Presence of prosthetic heart valve; Z95.810 Presence of automatic (implantable) cardiac defibrillator
CPT/HCPCS: 36415; 36416; 71045; 80048; 80053; 80202; 82553; 83520; 83605; 83880; 83970; 84100; 84484; 85025; 85610; 85730; 86256; 87040; 87070; 87077; 87186; 87205; 90935; 92950; 93005; 93970; 94760; 96365; 96367; 96375; G0257; J0171; J0282; J0692; J1644; J1650; J2270; J2543; J3370; J3490; Q0162; Q5105